=== PATIENT | female | born 1950 | race Caucasian/White ===

== ENCOUNTER 2019-12-14 10:35 | Observation (INO) | payer MEDICARE ==
[2019-12-14] MEDS ORDERED: IPRATROPIUM-ALBUTEROL 3 ML NEB INHALATION STA (10:52)
--- NOTE | 2019-12-14 11:01 | ED ---
SOB HPI - General Chief Complaint: Shortness of Breath Stated Complaint: SOB Time Seen by Provider: 12/14/19 10:43 Source: patient, RN notes reviewed Mode of arrival: ambulatory Limitations: no limitations - History of Present Illness Initial Comments: This a 69-year-old female presents emergency Department with chief complaint shortness breath. She's had increased shortness with the last couple days. She states she had chills last night and a fever or she took ibuprofen for this morning. Patient states that she's been dealing with sinus issues over the last couple weeks and which she was on antibiotics for. Patient does admit that she has bad seasonal ALLERGIES. Patient does have a history of PE, and asthma. She has inhalers at home. She does complain of mild chest discomfort. Denies any abdominal pain she's had slight nausea no vomiting. She has a minimally productive cough with nasal congestion. - Related Data Home Medications Medication Instructions Recorded Confirmed Lisinopril 40 mg PO DAILY 03/29/14 04/03/16 Omeprazole [PriLOSEC] 20 mg PO AC-[id number] 03/29/14 04/03/16 Warfarin [Coumadin] 6 mg PO DAILY 03/29/14 04/03/16 amLODIPine BESYLATE [Norvasc] 10 mg PO DAILY 03/29/14 04/03/16 Atorvastatin Calcium [Lipitor] 10 mg PO DAILY 04/03/16 04/03/16 Carvedilol [Coreg] 12.5 mg PO BID 04/03/16 04/03/16 Fluticasone/Salmeterol [Advair 1 inhalation PO BID 04/03/16 04/03/16 500-50 Diskus] Montelukast [Singulair] 10 mg PO DAILY 04/03/16 04/03/16 buPROPion HCL [Wellbutrin XL] 300 mg PO DAILY 04/03/16 04/03/16 Previous Rx's Medication Instructions Recorded Ibuprofen [Motrin] 800 mg PO Q6HR PRN #20 tab 04/03/16 Orphenadrine [Norflex] 100 mg PO Q12H PRN #12 tablet.er 04/03/16 Allergies Allergy/AdvReac Type Severity Reaction Status Date / Time No Known Allergies Allergy Verified 12/14/19 10:41 Review of Systems ROS Statement: Those systems with pertinent positive or pertinent negative responses have been documented in the HPI. ROS Other: All systems not noted in ROS Statement are negative. Past Medical History Past Medical History: Asthma, Deep Vein Thrombosis (DVT), Hypertension, P ulmonary Embolus (PE) Additional Past Medical History / Comment(s): chronic sinus issues and allergies History of Any Multi-Drug Resistant Organisms: None Reported Past Surgical History: Orthopedic Surgery Past Psychological History: No Psychological Hx Reported Smoking Status: Never smoker Past Alcohol Use History: None Reported Past Drug Use History: None Reported General Exam Limitations: no limitations General appearance: alert, in no apparent distress Head exam: Present: atraumatic, normocephalic, normal inspection Eye exam: Present: normal appearance, PERRL, EOMI. Absent: scleral icterus, conjunctival injection, periorbital swelling ENT exam: Present: mucous membranes moist, TM's normal bilaterally. Absent: normal exam (Rhinorrhea), normal oropharynx Neck exam: Present: normal inspection, full ROM. Absent: tenderness, meningismus, lymphadenopathy Respiratory exam: Present: wheezes (Minimal), rhonchi. Absent: normal lung sounds bilaterally, respiratory distress, rales, stridor Cardiovascular Exam: Present: regular rate, normal rhythm, normal heart sounds. Absent: systolic murmur, diastolic murmur, rubs, gallop, clicks GI/Abdominal exam: Present: soft, normal bowel sounds. Absent: distended, tenderness, guarding, rebound, rigid Neurological exam: Present: alert, oriented X3 Skin exam: Present: warm, dry, intact, normal color. Absent: rash Course Vital Signs 12/14/19 12/14/19 12/14/19 10:37 11:22 11:39 Temperature 99.7 F H Pulse Rate 92 80 81 Respiratory 20 Rate Blood Pressure 131/84 O2 Sat by Pulse 98 Oximetry 12/14/19 12/14/19 12:30 12:59 Temperature Pulse Rate 82 67 Respiratory 24 18 Rate Blood Pressure 122/74 O2 Sat by Pulse 97 96 Oximetry Medical Decision Making - Medical Decision Making 69-year-old female presented emergency from chief complaint of shortness of breath. Patient found to have a infrahilar pneumonia. Patient did have some improvement after DuoNeb treatment. Patient does have some mild warfarin induced coagulopathy with INR 5.8. Patient has no signs of bleeding at this time. Coumadin will be held. Patient was given Rocephin, azithromycin. Patient will be admitted for further treatment and management. - Lab Data Result diagrams: 12/14/19 12:59 12/14/19 11:29 Lab Results 12/14/19 12/14/19 12/14/19 Range/Units 11:29 11:29 11:29 WBC (3.8-10.6) k/uL RBC (3.80-5.40) m/uL Hgb (11.4-16.0) gm/dL Hct (34.0-46.0) % MCV (80.0-100.0) fL MCH (25.0-35.0) pg MCHC (31.0-37.0) g/dL RDW (11.5-15.5) % Plt Count (150-450) k/uL Neutrophils % % Lymphocytes % % Monocytes % % Eosinophils % % Basophils % % Neutrophils # (1.3-7.7) k/uL Lymphocytes # (1.0-4.8) k/uL Monocytes # (0-1.0) k/uL Eosinophils # (0-0.7) k/uL Basophils # (0-0.2) k/uL PT 58.3 H (9.0-12.0) sec INR 5.8 H* (<1.2) APTT 43.1 H (22.0-30.0) sec D-Dimer 0.23 (<0.60) mg/L FEU Sodium 135 L (137-145) mmol/L Potassium 4.4 (3.5-5.1) mmol/L Chloride 106 (98-107) mmol/L Carbon Dioxide 22 (22-30) mmol/L Anion Gap 7 mmol/L BUN 17 (7-17) mg/dL Creatinine 1.02 (0.52-1.04) mg/dL Est GFR (CKD-EPI)AfAm 65 (>60 ml/min/1.73 sqM) Est GFR (CKD-EPI)NonAf 56 (>60 ml/min/1.73 sqM) Glucose 172 H (74-99) mg/dL Plasma Lactic Acid Jorge 1.5 (0.7-2.0) mmol/L Calcium 8.9 (8.4-10.2) mg/dL Magnesium 1.7 (1.6-2.3) mg/dL Total Bilirubin 1.8 H (0.2-1.3) mg/dL AST 40 H (14-36) U/L ALT 33 (4-34) U/L Alkaline Phosphatase 93 (38-126) U/L Troponin I (0.000-0.034) ng/mL NT-Pro-B Natriuret Pep pg/mL Total Protein 6.4 (6.3-8.2) g/dL Albumin 3.4 L (3.5-5.0) g/dL 12/14/19 12/14/19 12/14/19 Range/Units 11:29 11:29 12:59 WBC 16.7 H (3.8-10.6) k/uL RBC 4.52 (3.80-5.40) m/uL Hgb 14.0 (11.4-16.0) gm/dL Hct 42.6 (34.0-46.0) % MCV 94.2 (80.0-100.0) fL MCH 30.9 (25.0-35.0) pg MCHC 32.8 (31.0-37.0) g/dL RDW 13.9 (11.5-15.5) % Plt Count 182 (150-450) k/uL Neutrophils % 94 % Lymphocytes % 2 % Monocytes % 4 % Eosinophils % 0 % Basophils % 0 % Neutrophils # 15.6 H (1.3-7.7) k/uL Lymphocytes # 0.3 L (1.0-4.8) k/uL Monocytes # 0.6 (0-1.0) k/uL Eosinophils # 0.0 (0-0.7) k/uL Basophils # 0.0 (0-0.2) k/uL PT (9.0-12.0) sec INR (<1.2) APTT (22.0-30.0) sec D-Dimer (<0.60) mg/L FEU Sodium (137-145) mmol/L Potassium (3.5-5.1) mmol/L Chloride (98-107) mmol/L Carbon Dioxide (22-30) mmol/L Anion Gap mmol/L BUN (7-17) mg/dL Creatinine (0.52-1.04) mg/dL Est GFR (CKD-EPI)AfAm (>60 ml/min/1.73 sqM) Est GFR (CKD-EPI)NonAf (>60 ml/min/1.73 sqM) Glucose (74-99) mg/dL Plasma Lactic Acid Jorge (0.7-2.0) mmol/L Calcium (8.4-10.2) mg/dL Magnesium (1.6-2.3) mg/dL Total Bilirubin (0.2-1.3) mg/dL AST (14-36) U/L ALT (4-34) U/L Alkaline Phosphatase (38-126) U/L Troponin I <0.012 (0.000-0.034) ng/mL NT-Pro-B Natriuret Pep 322 pg/mL Total Protein (6.3-8.2) g/dL Albumin (3.5-5.0) g/dL - EKG Data -: EKG Interpreted by Me EKG Comments: EKG performed at 10:56 no sinus rhythm rate of 88 NJ 146 QRS 74 QT/QTC 352/425 left axis deviation Disposition Clinical Impression: Pneumonia, Warfarin-induced coagulopathy, Failure of outpatient treatment, Dyspnea Disposition: ADMITTED IP TO THIS [facility] Condition: Fair Referrals: Dipak Park MD [Primary Care Provider] - 1-2 days
[2019-12-14 12:09] LABS: Albumin 3.4 g/dL (3.5-5.0); Calcium 8.9 mg/dL (8.4-10.2); Magnesium 1.7 mg/dL (1.6-2.3); Potassium 4.4 mmol/L (3.5-5.1); Total Bilirubin 1.8 mg/dL (0.2-1.3); Total Protein 6.4 g/dL (6.3-8.2)
--- NOTE | 2019-12-14 12:11 | XR ---
EXAMINATION TYPE: XR chest 2V DATE OF EXAM: 12/14/2019 HISTORY: difficulty breathing. REFERENCE: NONE. FINDINGS: There is apparent elevation of the right hemidiaphragm. Heart size upper limits of normal. There are senescent changes in the lungs. There is some increased density in the infrahilar region on the right and I cannot exclude an early infiltrate. IMPRESSION: I CANNOT EXCLUDE AN EARLY INFILTRATE IN THE INFRAHILAR REGION ON THE RIGHT.
[2019-12-14 12:14] LABS: D-Dimer 0.23 mg/L FEU (<0.60); Partial Thromboplastin Time 43.1 sec (22.0-30.0)
[2019-12-14 12:15] LABS: Prothrombin Time 58.3 sec (9.0-12.0)
[2019-12-14 12:17] LABS: INR 5.8 (<1.2)
[2019-12-14] MEDS ORDERED: ACETAMINOPHEN TAB 325 MG TAB PO STA (12:21)
[2019-12-14 13:32] LABS: Basophils % (A) 0 %; Eosinophils % (A) 0 %; HCT 42.6 % (34.0-46.0); Lymphocytes # (A) 0.3 k/uL (1.0-4.8); Lymphocytes % (A) 2 %; MCH 30.9 pg (25.0-35.0); MCHC 32.8 g/dL (31.0-37.0); MCV 94.2 fL (80.0-100.0); Mean Platelet Volume 7.1; Monocytes # (A) 0.6 k/uL (0-1.0); Monocytes % (A) 4 %; Neutrophils # (A) 15.6 k/uL (1.3-7.7); Neutrophils % (A) 94 %; Platelet Count 182 k/uL (150-450); RBC 4.52 m/uL (3.80-5.40); RDW 13.9 % (11.5-15.5); WBC 16.7 k/uL (3.8-10.6)
[2019-12-14] MEDS ORDERED: PNEUMONIA PROTOCOL UTILIZED 1 EACH MISC PO PRN (13:40)
[2019-12-14] MEDS ORDERED: AZITHROMYCIN 500 MG in SODIUM CHLORIDE 0.9% 250 ML IVPB STA (13:40)
[2019-12-14] MEDS ORDERED: IPRATROPIUM-ALBUTEROL 3 ML NEB INHALATION SCH (16:00)
[2019-12-14] MEDS ORDERED: NALOXONE 0.4 MG/ML 1 ML VIAL IV PRN (16:52)
[2019-12-14] MEDS ORDERED: ONDANSETRON 4 MG/2 ML VIAL IVP PRN (16:52)
[2019-12-14] MEDS ORDERED: LACTULOSE 20 GM/30 ML CUP PO PRN (16:52)
[2019-12-14] MEDS ORDERED: MAGNESIUM HYDROXIDE 2,400 MG/10 ML CUP PO PRN (16:52)
[2019-12-14] MEDS ORDERED: CALCIUM CARBONATE 500 MG CHEWABLE PO PRN (16:52)
[2019-12-14] MEDS ORDERED: ALPRAZolam 0.25 MG TAB PO PRN (16:52)
[2019-12-14] MEDS ORDERED: MELATONIN 3 MG TABLET PO PRN (16:52)
[2019-12-14] MEDS ORDERED: MAG HYDROX/AL HYDROX/SIMETH 30 ML CUP PO PRN (16:52)
[2019-12-14] MEDS ORDERED: ACETAMINOPHEN TAB 325 MG TAB PO PRN (18:33)
--- NOTE | 2019-12-14 19:51 | P.HPIM ---
History of Present Illness H&P Date: 12/14/19 Chief Complaint: cough History of presenting complaint: This is a pleasant 69-year-old patient of Dr. Park. Chronic stable medical conditions include DVT and PE for which she's on Coumadin, hypertension, chronic sinus trouble and ALLERGIES. For the last 3 weeks been having trouble with her sinuses. Went to see her family doctor. Was given antibiotics. Presented dry cough all winter. We'll slightly short of breath. Decreased appetite had some chills yesterday. Some nausea. Tired rundown. Decided to come in. X-ray in the ER was suggestive of infiltrate. Started on ceftriaxone and Zithromax. Review of systems: GEN.: Tired chills EYES: None HEENT: None NECK: None RESPIRATORY: As above CARDIOVASCULAR: None GASTROINTESTINAL: None GENITOURINARY: None MUSCULOSKELETAL: Some joint pains LYMPHATICS: None HEMATOLOGICAL: None PSYCHIATRY: None NEUROLOGICAL: None Past medical history to include: Asthma, DVT, hypertension, PE, chronic sinus trouble and ALLERGIES Social history: Lives alone. No history of smoking or alcohol Family history: Reviewed, noncontributory to presentation Physical examination: VITAL SIGNS: 99.7, 92, 20, 131/84, 98% on room air GENERAL: BMI 42, laying in bed, slightly tired. EYES: Pupils equal. Conjunctiva normal. HEENT: External appearance of nose and ears normal, oral cavity grossly normal. NECK: JVD not raised; masses not palpable. HEART: First and second heart sounds are normal; no edema. LUNGS: Respiratory rate increased, diminished breath sounds mild wheezing. ABDOMEN: Soft, nontender, liver spleen not palpable, no masses palpable. PSYCH: Alert and oriented x3; mood and affect normal. NEUROLOGICAL: Cranial nerves grossly intact; no facial asymmetry, power and sensation grossly intact. LYMPHATICS: No lymph nodes palpable in the axilla and neck INVESTIGATIONS, reviewed in the clinical context: White count 16.7 hemoglobin 14 platelets 22 potassium 4.4 creatinine 1.0 to Bilirubin 1.8 AST 40 INR 5.8 EKG tracing personally reviewed by me-normal sinus rhythm, nonspecific changes Chest x-ray film personally reviewed by me-right perihilar infiltrate Assessment: -Right-sided pneumonia, suspect gram-negative organism -Morbid obesity BMI 42 -Acute exacerbation of intermittent asthma -Chronic sinusitis with ALLERGIES - chronic DVT and PE for which patient is on Coumadin -Coumadin toxicity with no evidence of bleeding Plan: Patient was started on nebulized bronchodilators, inhaled and IV steroids. Patient told to use warm water with salt gargles. Also use Claritin D for ALLERGIES and congestion. Home medications resumed. Does clinically no evidence of any bleeding. Hold off Coumadin for now. Care was discussed with the patient question were answered. Past Medical History Past Medical History: Asthma, Deep Vein Thrombosis (DVT), Hypertension, Pulmonary Embolus (PE) Additional Past Medical History / Comment(s): chronic sinus issues and allergies History of Any Multi-Drug Resistant Organisms: None Reported Past Surgical History: Orthopedic Surgery Additional Past Surgical History / Comment(s): meniscus repair in left knee Past Anesthesia/Blood Transfusion Reactions: No Reported Reaction Past Psychological History: No Psychological Hx Reported Smoking Status: Never smoker Past Alcohol Use History: None Reported Past Drug Use History: None Reported Medications and Allergies Home Medications Medication Instructions Recorded Confirmed Type Lisinopril 40 mg PO DAILY 03/29/14 12/14/19 History Warfarin [Coumadin] 5 mg PO DAILY 03/29/14 12/14/19 History amLODIPine BESYLATE [Norvasc] 10 mg PO DAILY 03/29/14 12/14/19 History Atorvastatin Calcium [Lipitor] 10 mg PO DAILY 04/03/16 12/14/19 History Carvedilol [Coreg] 12.5 mg PO BID 04/03/16 12/14/19 History Montelukast [Singulair] 10 mg PO DAILY 04/03/16 12/14/19 History Albuterol Inhaler [Ventolin Hfa 1 puff INHALATION RT-QID 12/14/19 12/14/19 History Inhaler] Allergies Allergy/AdvReac Type Severity Reaction Status Date / Time No Known Allergies Allergy Verified 12/14/19 14:01 Physical Exam Vitals: Vital Signs Temp Pulse Pulse Resp BP BP Pulse Ox 12/14/19 16:37 80 12/14/19 16:25 80 12/14/19 16:20 98.2 F 84 18 121/78 97 12/14/19 16:00 18 12/14/19 14:56 98.7 F 77 18 104/64 98 12/14/19 14:00 85 22 136/73 12/14/19 13:30 82 25 H 125/74 12/14/19 12:59 67 18 122/74 96 12/14/19 12:30 82 24 97 12/14/19 11:39 81 12/14/19 11:22 80 12/14/19 10:37 99.7 F H 92 20 131/84 98 Intake and Output 12/14/19 12/14/19 12/14/19 06:59 14:59 22:59 Other: Weight 117.934 kg Results CBC & Chem 7: 12/14/19 12:59 12/14/19 11:29 Labs: Abnormal Lab Results - Last 24 Hours (Table) 12/14/19 12/14/19 12/14/19 Range/Units 11:29 11:29 12:59 WBC 16.7 H (3.8-10.6) k/uL Neutrophils # 15.6 H (1.3-7.7) k/uL Lymphocytes # 0.3 L (1.0-4.8) k/uL PT 58.3 H (9.0-12.0) sec INR 5.8 H* (<1.2) APTT 43.1 H (22.0-30.0) sec Sodium 135 L (137-145) mmol/L Glucose 172 H (74-99) mg/dL Total Bilirubin 1.8 H (0.2-1.3) mg/dL AST 40 H (14-36) U/L Albumin 3.4 L (3.5-5.0) g/dL Thrombosis Risk Factor Assmnt - Choose All That Apply Any of the Below Risk Factors Present?: Yes Each Factor Represents 1 point: Obesity (BMI >25), Swollen legs (current) Each Risk Factor Represents 2 Points: Age 61-74 years Each Risk Factor Represents 3 Points: History of DVT/PE Thrombosis Risk Factor Assessment Total Risk Factor Score: 7 Thrombosis Risk Factor Assessment Level: High Risk
[2019-12-14 20:00] VITALS: RESP 18
[2019-12-14] MEDS ORDERED: ALBUTEROL NEBULIZED 2.5 MG/3 ML INHALATION SCH (20:00)
[2019-12-14] MEDS: BUDESONIDE 1 MG/2 ML NEBU INHALATION SCH (20:03)
[2019-12-14] MEDS: ALBUTEROL NEBULIZED 2.5 MG/3 ML INHALATION SCH ×2 (20:03→23:54)
[2019-12-14] MEDS: methylPREDNISolone SOD SUCCI 40 MG/ML 1 ML VIAL IV SCH (20:13)
[2019-12-14] MEDS: CARVEDILOL 12.5 MG TAB PO SCH (20:13)
[2019-12-14] MEDS: LORATADINE-PSEUDOEPH 5-120 MG 1 EACH TAB.ER.12H PO SCH (21:00)
[2019-12-15] MEDS: methylPREDNISolone SOD SUCCI 40 MG/ML 1 ML VIAL IV SCH ×2 (03:30→11:41)
[2019-12-15] MEDS: ALBUTEROL NEBULIZED 2.5 MG/3 ML INHALATION SCH ×4 (04:25→15:56)
--- NOTE | 2019-12-15 06:51 | XR ---
EXAMINATION TYPE: XR chest 1V DATE OF EXAM: 12/15/2019 HISTORY: pneumonia. REFERENCE: Previous study dated 12/14/2019. FINDINGS: There continues to be some increased opacity in the infrahilar region on the right. Left aylin ng appears clear. The heart is enlarged. IMPRESSION: 1. CARDIOMEGALY. 2. I CONTINUE TO BE SUSPICIOUS OF AN INFRAHILAR INFILTRATE ON THE RIGHT.
[2019-12-15 07:19] LABS: Glucose,Whole Blood 199 mg/dL (75-99)
[2019-12-15 08:28] LABS: INR 4.3 (<1.2); Prothrombin Time 42.9 sec (9.0-12.0)
[2019-12-15] MEDS: INSULIN ASPART (NovoLOG) 100 UNIT/ML VIAL SQ SCH ×3 (08:28→18:05)
[2019-12-15] MEDS: LORATADINE-PSEUDOEPH 5-120 MG 1 EACH TAB.ER.12H PO SCH (08:30)
[2019-12-15] MEDS: CARVEDILOL 12.5 MG TAB PO SCH (08:36)
[2019-12-15] MEDS: BUDESONIDE 1 MG/2 ML NEBU INHALATION SCH (08:42)
[2019-12-15] MEDS ORDERED: amLODIPine 10 MG TAB PO SCH (09:00)
[2019-12-15] MEDS ORDERED: WARFARIN 5 MG TAB PO SCH (09:00)
[2019-12-15] MEDS ORDERED: LISINOPRIL 20 MG TAB PO SCH (09:00)
[2019-12-15] MEDS ORDERED: MONTELUKAST 10 MG TAB PO SCH (09:00)
[2019-12-15] MEDS ORDERED: ATORVASTATIN 10 MG TAB PO SCH (09:00)
[2019-12-15] MEDS ORDERED: AZITHROMYCIN 500 MG TAB PO SCH (09:00)
[2019-12-15 11:52] LABS: Glucose,Whole Blood 227 mg/dL (75-99)
[2019-12-15 14:26] VITALS: BP 97/62; TEMP 98
[2019-12-15 16:01] VITALS: PULSE 62
[2019-12-15 17:00] LABS: Glucose,Whole Blood 212 mg/dL (75-99)
[2019-12-15] MEDS ORDERED: WARFARIN 0.5 MG TAB PO ONE (18:00)
--- NOTE | 2019-12-15 18:30 | P.DS ---
Providers Date of admission: 12/14/19 13:40 Expected date of discharge: 12/15/19 Attending physician: Hadley Snider Primary care physician: Dipak Park [facility] Course: Chief Complaint: cough History of presenting complaint: This is a pleasant 69-year-old patient of Dr. Park. Chronic stable medical conditions include DVT and PE for which she's on Coumadin, hypertension, chronic sinus trouble and ALLERGIES. For the last 3 weeks been having trouble with her sinuses. Went to see her family doctor. Was given antibiotics. Presented dry cough all winter. We'll slightly short of breath. Decreased appetite had some chills yesterday. Some nausea. Tired rundown. Decided to come in. X-ray in the ER was suggestive of infiltrate. Started on ceftriaxone and Zithromax. Admitted with pneumonia and asthma exacerbation. Treated with IV ceftriaxone, steroids. Also given Claritin-D. Today-patient doing much better. Greatly improved. Breathing much improved. Discussed with the patient. Can go home later this evening. Medications were discussed. Does of Coumadin compactor 2.5 mg she will not take today. From tomorrow. Repeat INR in 5 days. Discussion and discharge planning more than 35 minutes Physical examination: VITAL SIGNS: 98, 60, 18, 97 was 62, 92% room air GENERAL: Sitting over chair, looking much improved EYES: Pupils equal. Conjunctiva normal. HEENT: External appearance of nose and ears normal, oral cavity grossly normal. NECK: JVD not raised; masses not palpable. HEART: First and second heart sounds are normal; no edema. LUNGS: Respiratory rate increased, improved air entry ABDOMEN: Soft, nontender, liver spleen not palpable, no masses palpable. PSYCH: Alert and oriented x3; mood and affect normal. INVESTIGATIONS, reviewed in the clinical context: INR 4.3 White count 16.7 hemoglobin 14 platelets 22 potassium 4.4 creatinine 1.0 to Bilirubin 1.8 AST 40 INR 5.8 EKG tracing personally reviewed by me-normal sinus rhythm, nonspecific changes Chest x-ray film personally reviewed by me-right perihilar infiltrate COVID 19 PCR not detected Assessment: -Right-sided pneumonia, suspect gram-negative organism-much improved -Morbid obesity BMI 42 -Acute exacerbation of intermittent asthma-much improved -Chronic sinusitis with ALLERGIES - chronic DVT and PE for which patient is on Coumadin -Coumadin toxicity with no evidence of bleeding Disposition: Home Patient Condition at Discharge: Stable Plan - Discharge Summary Discharge Rx Participant: Yes New Discharge Prescriptions: New Loratadine-Pseudoeph 5-120 mg [Claritin-D 12 Hour] 1 each PO Q12HR #14 tab.er.12h predniSONE 10 mg PO DAILY #30 tab Albuterol Nebulized [Ventolin Nebulized] 2.5 mg INHALATION TID #90 ml Azithromycin [Zithromax] 500 mg PO DAILY #4 tab Continue amLODIPine BESYLATE [Norvasc] 10 mg PO DAILY Lisinopril 40 mg PO DAILY Atorvastatin Calcium [Lipitor] 10 mg PO DAILY Montelukast [Singulair] 10 mg PO DAILY Carvedilol [Coreg] 12.5 mg PO BID Albuterol Inhaler [Ventolin Hfa Inhaler] 1 puff INHALATION RT-QID Changed Warfarin [Coumadin] 2.5 mg PO DAILY #0 Discharge Medication List Lisinopril 40 mg PO DAILY 03/29/14 [History] amLODIPine BESYLATE [Norvasc] 10 mg PO DAILY 03/29/14 [History] Atorvastatin Calcium [Lipitor] 10 mg PO DAILY 04/03/16 [History] Carvedilol [Coreg] 12.5 mg PO BID 04/03/16 [History] Montelukast [Singulair] 10 mg PO DAILY 04/03/16 [History] Albuterol Inhaler [Ventolin Hfa Inhaler] 1 puff INHALATION RT-QID 12/14/19 [History] Albuterol Nebulized [Ventolin Nebulized] 2.5 mg INHALATION TID #90 ml 12/15/19 [Rx] Azithromycin [Zithromax] 500 mg PO DAILY #4 tab 12/15/19 [Rx] Loratadine-Pseudoeph 5-120 mg [Claritin-D 12 Hour] 1 each PO Q12HR #14 tab.er.12h 12/15/19 [Rx] Warfarin [Coumadin] 2.5 mg PO DAILY #0 12/15/19 [Rx] predniSONE 10 mg PO DAILY #30 tab 12/15/19 [Rx] Follow up Appointment(s)/Referral(s): Dipak Park MD [Primary Care Provider] - 1 Week Activity/Diet/Wound Care/Special Instructions: dc at 6:30 pm resume coumdain from tomorrow inr- 5 days
== END 2019-12-15 18:43 | disposition home or self-care (01) ==
LOC: EC 10:35 → 4SSUR 13:40
PROVIDERS: ADMIT Hospitalist; ATTEND Hospitalist
DX: J18.9 Pneumonia, unspecified organism (principal); T45.515A Adverse effect of anticoagulants, initial encounter; R79.1 Abnormal coagulation profile; E66.01 Morbid (severe) obesity due to excess calories; Z68.41 Body mass index [BMI] 40.0-44.9, adult; J45.21 Mild intermittent asthma with (acute) exacerbation; J45.909 Unspecified asthma, uncomplicated; I10 Essential (primary) hypertension; J32.9 Chronic sinusitis, unspecified; I82.509 Chronic embolism and thrombosis of unspecified deep veins of unspecified lower extremity; I27.82 Chronic pulmonary embolism; Z79.01 Long term (current) use of anticoagulants; Z79.51 Long term (current) use of inhaled steroids; Z79.899 Other long term (current) drug therapy
CPT/HCPCS: 96376; 96375; 96365; 96367; 99285; 36415; 94640 ×4; 94760; 93005; 85379; 83880; 80053; 83605; 83735; 84484; 85025; 85610 ×2; 85730; 87040; 71045; 71046; G0378 ×2; U0003; J2920 ×2; J2405; J0456; J0696 ×2

== ENCOUNTER 2020-12-21 09:48 | Emergency (ER) | payer MEDICARE ==
[2020-12-21 09:59] VITALS: BP 181/81; PULSE 85; RESP 18; TEMP 97.6
--- NOTE | 2020-12-21 11:09 | XR ---
EXAMINATION TYPE: XR ribs LT w pa chest xray DATE OF EXAM: 12/21/2020 COMPARISON: 12/15/2019 HISTORY: Fall with pain on left side TECHNIQUE: 5 views chest and ribs FINDINGS: Lungs are grossly clear. Cardiac silhouette is not enlarged. No definite displaced rib fractures. IMPRESSION: No definite displaced rib fractures.
[2020-12-21] MEDS ORDERED: ACET/COD 300 MG/30 MG STARTER PACK 6 TAB BTL PO STA (11:55)
--- NOTE | 2020-12-21 11:55 | ED ---
Fall HPI - General Chief Complaint: Fall Stated Complaint: Fall/Lt Rib Injury Time Seen by Provider: 12/21/20 10:01 Source: patient Mode of arrival: ambulatory - History of Present Illness Initial Comments: Patient is a 70-year-old female presenting to emergency Department with complaints of left-sided rib pain for the past 4 days. Patient states she was reaching for a broom over a deck when it gave way and her left ribs hit the deck railing. She states at first she did not have a tonic pain, felt like a bruise but over the last 2 days she states the pain has been increasing. It hurts with position changes and she had a hard time falling asleep last night. She denies any nausea or vomiting. She did not hit her head. She denies any other injuries from the slip other than the left rib pain. Her vital signs are stable upon arrival. - Related Data Home Medications Medication Instructions Recorded Confirmed amLODIPine BESYLATE [Norvasc] 10 mg PO DAILY 03/29/14 12/21/20 lisinopriL 40 mg PO DAILY 03/29/14 12/21/20 Carvedilol [Coreg] 12.5 mg PO BID 04/03/16 12/21/20 Montelukast [Singulair] 10 mg PO HS 04/03/16 12/21/20 Albuterol Inhaler [Ventolin Hfa 2 puff INHALATION RT-QID PRN 12/14/19 12/21/20 Inhaler] Atorvastatin [Lipitor] 20 mg PO DAILY 12/21/20 12/21/20 Fluticasone Nasal Verm[place] [Flonase 2 spr EA NOSTRIL DAILY PRN 12/21/20 12/21/20 Nasal Verm[place]] Omeprazole Magnesium [PriLOSEC OTC] 20 mg PO DAILY PRN 12/21/20 12/21/20 Warfarin [Coumadin] 5 mg PO HS 12/21/20 12/21/20 hydroCHLOROthiazide 25 mg PO DAILY 12/21/20 12/21/20 Allergies Allergy/AdvReac Type Severity Reaction Status Date / Time No Known Allergies Allergy Verified 12/21/20 11:29 Review of Systems ROS Statement: Those systems with pertinent positive or pertinent negative responses have been documented in the HPI. ROS Other: All systems not noted in ROS Statement are negative. Past Medical History Past Medical History: Asthma, Deep Vein Thrombosis (DVT), Hypertension, Pulmonary Embolus (PE) Additional Past Medical History / Comment(s): chronic sinus issues and allergies History of Any Multi-Drug Resistant Organisms: None Reported Past Surgical History: Orthopedic Surgery Additional Past Surgical History / Comment(s): meniscus repair in left knee Past Anesthesia/Blood Transfusion Reactions: No Reported Reaction Past Psychological History: No Psychological Hx Reported Smoking Status: Never smoker Past Alcohol Use History: None Reported Past Drug Use History: None Reported General Exam - General Exam Comments Initial Comments: GENERAL: Patient is well-developed and well-nourished. Patient is nontoxic and in no acute distress. HEAD: Atraumatic, normocephalic. EYES: Pupils equal round and reactive to light, extraocular movements intact, sclera anicteric, conjunctiva are normal. Eyelids were unremarkable. ENT: TMs normal, nares patent, oropharynx clear without exudates. Moist mucous membranes. NECK: Normal range of motion, supple without lymphadenopathy or JVD. LUNGS: Unlabored respirations. Breath sounds clear to auscultation bilaterally and equal. No wheezes rales or rhonchi. HEART: Regular rate and rhythm without murmurs, rubs or gallops. ABDOMEN: Soft, nontender, normoactive bowel sounds. No guarding, no rebound. No masses appreciated. : Deferred MUSCULOSKELETAL: Normal extremities with adequate strength and normal range of motion, no pitting or edema. No clubbing or cyanosis. Patient has tenderness with palpation of the left side of the ribs, anterior and lateral in nature. No obvious bruising or deformity. NEUROLOGICAL: Patient is alert and oriented x 3. Motor and sensory are also intact. Cranial nerves II through XII grossly intact. Symmetrical smile. Normal speech, normal gait. PSYCH: Normal mood, normal affect. SKIN: Warm, Dry, normal turgor, no rashes or lesions noted. Limitations: no limitations Course Vital Signs 12/21/20 09:56 Temperature 97.6 F Pulse Rate 85 Respiratory 18 Rate Blood Pressure 181/81 O2 Sat by Pulse 97 Oximetry Medical Decision Making - Medical Decision Making Patient is a 70-year-old female here for left-sided rib pain after she slipped and hit the side of a railing 4 days ago. X-rays today revealed no acute rib fractures or other abnormalities. I discussed these findings with the patient. This is a rib contusion, recommended Tylenol for discomfort, bracing while coughing, heat or cold to the area. Patient will follow up with her primary care physician. She is in agreement with this plan of care and is stable for discharge. Case discussed with Dr. Johnson. Disposition Clinical Impression: Fall, Contusion of rib on left side Disposition: HOME SELF-CARE Condition: Stable Instructions (If sedation given, give patient instructions): Rib Contusion (ED) Additional Instructions: Please return to the Emergency Department if symptoms worsen or any other concerns. Recommend Tylenol for discomfort, ice or heat to the area. Also recommend deep breathing exercises as discussed to help prevent pneumonia. Follow up with your primary care physician. Is patient prescribed a controlled substance at d/c from ED?: No Referrals: Dipak Park MD [Primary Care Provider] - 1-2 days Time of Disposition: 11:55
== END 2020-12-21 12:15 | disposition home or self-care (01) ==
LOC: EC 09:48
DX: S20.212A Contusion of left front wall of thorax, initial encounter (principal); I10 Essential (primary) hypertension; J45.909 Unspecified asthma, uncomplicated; Z86.711 Personal history of pulmonary embolism; Z86.718 Personal history of other venous thrombosis and embolism; Z79.01 Long term (current) use of anticoagulants; Z79.51 Long term (current) use of inhaled steroids; W22.8XXA Striking against or struck by other objects, initial encounter; Y92.008 Other place in unspecified non-institutional (private) residence as the place of occurrence of the external cause
CPT/HCPCS: 99284

== ENCOUNTER 2021-05-24 09:12 | Emergency (ER) | payer MEDICARE ==
--- NOTE | 2021-05-24 09:56 | ED ---
General Adult HPI - General Chief complaint: Back Pain/Injury Stated complaint: revisit - poss pneumonia Time Seen by Provider: 05/24/21 09:27 Source: patient Mode of arrival: ambulatory Limitations: no limitations - History of Present Illness Initial comments: Dictation was produced using Sitem[employer] dictation software. please excuse any grammatical, word or spelling errors. Chief Complaint: 70-year-old female presents emergency department for back pain History of Present Illness: Patient is a 70-year-old female presents to the emergency department for back pain. Laceration back pain like this she ended up being diagnosed with pneumonia she reports. Patient states she's had back pain for approximately 6-7 days. States it is worse when she moves. She is obese and has history of chronic back pain. Denies any cough. No shortness of breath. No chest pain. Denies any abdominal pain. No urinary symptoms. States the pain is similar lower back. Still goes across. Denies any saddle anesthesia. No radiation of symptoms. She is able to ambulate. The ROS documented in this emergency department record has been reviewed and confirmed by me. Those systems with pertinent positive or negative responses have been documented in the HPI. All other systems are other negative and/or noncontributory. PHYSICAL EXAM: General Impression: Alert and oriented x3, not in acute distress HEENT: Normocephalic atraumatic, extra-ocular movements intact, pupils equal and reactive to light bilaterally, mucous membranes moist. Cardiovascular: Heart regular rate and rhythm Chest: Able to complete full sentences, no retractions, no tachypnea Abdomen: abdomen soft, non-tender, non-distended, no organomegaly Musculoskeletal: Pulses present and equal in all extremities, no peripheral edema Motor: no focal deficits noted Neurological: CN II-XII grossly intact, no focal motor or sensory deficits noted Skin: Intact with no visualized rashes Psych: Normal affect and mood ED course: 70-year-old well-appearing female presents emergency Department with acute on chronic back pain. She's had exacerbation of her back pain over the last 6-7 days. Signs upon arrival are within acceptable limits. Patient is adamant that the last time she had back pain like this she was diagnosed with pneumonia. Laboratory evaluation obtained. CBC, metabolic panel is unremarkable. Urinalysis is negative. Lumbar spine x-ray shows no cold fractures. This showed a lot of degenerative changes. incidental findings of several large gallstones. Chest x-ray shows no acute processes. No evidence of pneumonia. Reevaluated bedside at 11:45 AM. She is in stable medical condition. She is well-appearing. Patient told that her back pain is likely secondary to degenerative disc disease and arthritis. Patient discharged. She is given starter pack for analgesics. She is given referral to a family resource management specialist. EKG interpretation: Ventricular rate 79, normal sinus rhythm, MT interval 172, QRS 70. No MT prolongation, no QTC prolongation, no ST or T-wave changes noted. EKG compared to 12/14/2019 showing no changes. Overall, this EKG is u nremarkable - Related Data Home Medications Medication Instructions Recorded Confirmed amLODIPine BESYLATE [Norvasc] 10 mg PO HS 03/29/14 05/24/21 lisinopriL 40 mg PO HS 03/29/14 05/24/21 Carvedilol [Coreg] 12.5 mg PO BID 04/03/16 05/24/21 Montelukast [Singulair] 10 mg PO HS 04/03/16 05/24/21 Albuterol Inhaler [Ventolin Hfa 2 puff INHALATION RT-QID PRN 12/14/19 05/24/21 Inhaler] Atorvastatin [Lipitor] 20 mg PO HS 12/21/20 05/24/21 Fluticasone Nasal [place] [Flonase 2 spr EA NOSTRIL DAILY PRN 12/21/20 05/24/21 Nasal [place]] Omeprazole Magnesium [PriLOSEC OTC] 20 mg PO DAILY PRN 12/21/20 05/24/21 Warfarin [Coumadin] 5 mg PO HS 12/21/20 05/24/21 Ergocalciferol [Vitamin D2 (1250 1,250 mcg PO [place]LEY 05/24/21 05/24/21 Mcg = 22457 Iu)] Fluticasone Propion/Salmeterol 1 puff INHALATION RT-BID 05/24/21 05/24/21 [[place] 250-50 Inhub] Penicillin V Potassium [Pen Vee K] 500 mg PO QID 05/24/21 05/24/21 Allergies Allergy/AdvReac Type Severity Reaction Status Date / Time latex Allergy Itching Verified 05/24/21 11:25 Review of Systems ROS Statement: Those systems with pertinent positive or pertinent negative responses have been documented in the HPI. ROS Other: All systems not noted in ROS Statement are negative. Past Medical History Past Medical History: Asthma, Deep Vein Thrombosis (DVT), Hypertension, Pulmonary Embolus (PE) Additional Past Medical History / Comment(s): chronic sinus issues and allergies History of Any Multi-Drug Resistant Organisms: None Reported Past Surgical History: Orthopedic Surgery Additional Past Surgical History / Comment(s): meniscus repair in left knee Past Anesthesia/Blood Transfusion Reactions: No Reported Reaction Past Psychological History: No Psychological Hx Reported Smoking Status: Never smoker Past Alcohol Use History: None Reported Past Drug Use History: None Reported General Exam Limitations: no limitations Course Vital Signs 05/24/21 05/24/21 09:19 10:42 Temperature 97.4 F L Pulse Rate 78 70 Respiratory 18 22 Rate Blood Pressure 158/86 166/77 O2 Sat by Pulse 97 97 Oximetry Medical Decision Making - Lab Data Result diagrams: 05/24/21 10:36 05/24/21 10:36 Lab Results 05/24/21 05/24/21 05/24/21 Range/Units 10:36 10:36 10:36 WBC 8.7 (3.8-10.6) k/uL RBC 4.53 (3.80-5.40) m/uL Hgb 13.8 (11.4-16.0) gm/dL Hct 42.5 (34.0-46.0) % MCV 93.9 (80.0-100.0) fL MCH 30.4 (25.0-35.0) pg MCHC 32.4 (31.0-37.0) g/dL RDW 13.4 (11.5-15.5) % Plt Count 240 (150-450) k/uL MPV 7.3 Neutrophils % 76 % Lymphocytes % 15 % Monocytes % 5 % Eosinophils % 2 % Basophils % 1 % Neutrophils # 6.6 (1.3-7.7) k/uL Lymphocytes # 1.3 (1.0-4.8) k/uL Monocytes # 0.5 (0-1.0) k/uL Eosinophils # 0.2 (0-0.7) k/uL Basophils # 0.1 (0-0.2) k/uL Sodium 137 (137-145) mmol/L Potassium 5.3 H (3.5-5.1) mmol/L Chloride 107 (98-107) mmol/L Carbon Dioxide 23 (22-30) mmol/L Anion Gap 7 mmol/L BUN 12 (7-17) mg/dL Creatinine 1.00 (0.52-1.04) mg/dL Est GFR (CKD-EPI)AfAm 66 (>60 ml/min/1.73 sqM) Est GFR (CKD-EPI)NonAf 57 (>60 ml/min/1.73 sqM) Glucose 123 H (74-99) mg/dL Calcium 9.3 (8.4-10.2) mg/dL Urine Color Yellow Urine Appearance Clear (Clear) Urine pH 6.0 (5.0-8.0) Ur Specific [place] 1.008 (1.001-1.035) Urine Protein Negative (Negative) Urine Glucose (UA) Negative (Negative) Urine Ketones Negative (Negative) Urine Blood Trace H (Negative) Urine Nitrite Negative (Negative) Urine Bilirubin Negative (Negative) Urine Urobilinogen <2.0 (<2.0) mg/dL Ur Leukocyte Esterase Negative (Negative) Urine RBC 1 (0-5) /hpf Urine WBC 1 (0-5) /hpf Ur Squamous Epith Cells 1 (0-4) /hpf Hyaline Casts 5 H (0-2) /lpf Urine Mucus Rare H (None) /hpf Disposition Clinical Impression: Strain of lumbar region Disposition: HOME SELF-CARE Condition: Fair Instructions (If sedation given, give patient instructions): Acute Low Back Pain (ED) Is patient prescribed a controlled substance at d/c from ED?: No Referrals: Dipak Park MD [Primary Care Provider] - 1-2 days Cammy Black DO [Doctor of Osteopathic Medicine] - 1-2 days
--- NOTE | 2021-05-24 10:19 | XR ---
EXAMINATION TYPE: XR chest 1V portable DATE OF EXAM: 05/24/2021 COMPARISON: Chest x-ray 08/23/2020 HISTORY: History of pneumonia with pain. TECHNIQUE: Single frontal view of the chest is obtained. FINDINGS: There are chronic parenchymal changes without suspicious focal air space opacity, pleural effusion, or pneumothorax seen. The cardiac silhouette size is stable and mildly enlarged. The oss eous structures are intact. IMPRESSION: Chronic parenchymal changes and mild cardiomegaly without acute pulmonary process.
--- NOTE | 2021-05-24 10:24 | XR ---
EXAMINATION TYPE: XR lumbar spine 2 or 3V DATE OF EXAM: 05/24/2021 Comparison: 03/29/2014 Clinical History: 70 year-old female history of pneumonia with back pain. Findings: Large gallstones measuring up to 4.2 cm. Osteopenia. Advanced hypertrophic facet arthropathy mid to l ower lumbar spine. Minimal anterior wedging L3 vertebral body, new from 03/29/2014 but still age indet erminate. Trace grade 1 anterolisthesis L5-S1. Remaining alignment is maintained. Impression: 1. Severe hypertrophic facet arthropathy in the lumbar spine with trace grade 1 anterolisthesis L5-S1 . 2. Mild anterior wedging L3 suggests an age indeterminate mild compression injury. It is noted to be new from 2013. Correlate for any focal pain at this level. 3. Numerous large gallstones measuring up to 4.2 cm.
[2021-05-24 10:56] LABS: Basophils # (A) 0.1 k/uL (0-0.2); Basophils % (A) 1 %; Eosinophils # (A) 0.2 k/uL (0-0.7); Eosinophils % (A) 2 %; HCT 42.5 % (34.0-46.0); HGB 13.8 gm/dL (11.4-16.0); Lymphocytes # (A) 1.3 k/uL (1.0-4.8); Lymphocytes % (A) 15 %; MCH 30.4 pg (25.0-35.0); MCHC 32.4 g/dL (31.0-37.0); MCV 93.9 fL (80.0-100.0); Mean Platelet Volume 7.3; Monocytes # (A) 0.5 k/uL (0-1.0); Monocytes % (A) 5 %; Neutrophils # (A) 6.6 k/uL (1.3-7.7); Neutrophils % (A) 76 %; Platelet Count 240 k/uL (150-450); RBC 4.53 m/uL (3.80-5.40); RDW 13.4 % (11.5-15.5); WBC 8.7 k/uL (3.8-10.6)
[2021-05-24 11:09] LABS: Appearance,Urine Clear (Clear); Bilirubin,Urine Negative (Negative); Blood,Urine Trace (Negative); Color,Urine Yellow; Glucose,Urine (UA) Negative (Negative); Hyaline Casts,Urine 5 /lpf (0-2); Ketones,Urine Negative (Negative); Leukocyte Esterase,Urine Negative (Negative); Mucus,Urine Rare /hpf; Nitrite,Urine Negative (Negative); Protein,Urine Negative (Negative); RBC,Urine 1 /hpf (0-5); Specific Gravity,Urine 1.008 (1.001-1.035); Squamous Epithelial Cell,Urine 1 /hpf (0-4); Urobilinogen,Urine <2.0 mg/dL (<2.0); WBC,Urine 1 /hpf (0-5)
[2021-05-24 11:26] LABS: Calcium 9.3 mg/dL (8.4-10.2)
[2021-05-24 11:32] LABS: Potassium 5.3 mmol/L (3.5-5.1)
[2021-05-24] MEDS ORDERED: ACET/COD 300 MG/30 MG STARTER PACK 6 TAB BTL PO STA (11:46)
[2021-05-24 12:04] VITALS: BP 122/82; PULSE 81; RESP 18; TEMP 97.8
== END 2021-05-24 12:03 | disposition home or self-care (01) ==
LOC: EC 09:12
DX: S39.012A Strain of muscle, fascia and tendon of lower back, initial encounter (principal); J45.909 Unspecified asthma, uncomplicated; I10 Essential (primary) hypertension; Z91.040 Latex allergy status; Z79.899 Other long term (current) drug therapy; Z86.711 Personal history of pulmonary embolism; Z79.01 Long term (current) use of anticoagulants; Z79.51 Long term (current) use of inhaled steroids; Z86.718 Personal history of other venous thrombosis and embolism; X58.XXXA Exposure to other specified factors, initial encounter
CPT/HCPCS: 36415; 71045; 72100; 80048; 81001; 85025; 93005; 99284

== ENCOUNTER → 2021-06-02 | Outpatient (CLI) | payer MEDICARE ==
[2021-06-02 13:32] LABS: INR 1.2 (<1.2); Prothrombin Time 12.7 sec (9.0-12.0)
== END | disposition home or self-care (01) ==
LOC: LABWHC1 12:36
PROVIDERS: ATTEND Pediatrics
DX: Z79.01 Long term (current) use of anticoagulants (principal)
CPT/HCPCS: 36415; 85610

== ENCOUNTER 2021-10-20 07:51 | Emergency (ER) | payer MEDICARE ==
[2021-10-20 07:58] VITALS: BP 144/80; PULSE 68; RESP 18; TEMP 97.1
--- NOTE | 2021-10-20 08:07 | ED ---
General Adult HPI - General Chief complaint: Shortness of Breath Stated complaint: SOB Time Seen by Provider: 10/20/21 07:55 Source: patient, RN notes reviewed, old records reviewed Mode of arrival: wheelchair Limitations: no limitations - History of Present Illness Initial comments: This is a 71-year-old female who presents emergency Department with a past medical history significant for pulmonary embolisms. Patient states she has a clotting disorder and she doesn't know what is called. Patient states she's on Coumadin and hasn't checked once a month. Patient denies any recent fever chills or cough. Patient states the shortness of breath started yesterday but got worse in the middle the night and she woke up and her. Difficult time breathing so she took a breathing treatment it only helped temporarily. Patient states any movement whatsoever causes her shortness of breath. Patient states she also has some chest discomfort when she became very short of breath. Patient states she no longer has any chest discomfort but she still feels very short of breath. Patient denies any abdominal pain patient denies nausea vomiting diarrhea. Patient denies any recent injury or trauma. - Related Data Home Medications Medication Instructions Recorded Confirmed amLODIPine BESYLATE [Norvasc] 10 mg PO HS 03/29/14 10/20/21 lisinopriL 40 mg PO HS 03/29/14 10/20/21 Carvedilol [Coreg] 12.5 mg PO BID 04/03/16 10/20/21 Montelukast [Singulair] 10 mg PO HS 04/03/16 10/20/21 Atorvastatin [Lipitor] 20 mg PO HS 12/21/20 10/20/21 Omeprazole Magnesium [PriLOSEC OTC] 20 mg PO HS 12/21/20 10/20/21 Warfarin [Coumadin] 5 mg PO HS 12/21/20 10/20/21 Ergocalciferol [Vitamin D2 (1250 1,250 mcg PO [place] 05/24/21 10/20/21 Mcg = 74905 Iu)] Ibuprofen [Motrin Ib] 800 mg PO DAILY PRN 10/20/21 10/20/21 Sertraline [Zoloft] 50 mg PO DIRECTED PRN 10/20/21 10/20/21 buPROPion HCL [Wellbutrin XL] 1 dose PO DIRECTED PRN 10/20/21 10/20/21 hydroCHLOROthiazide 25 mg PO DAILY 10/20/21 10/20/21 Allergies Allergy/AdvReac Type Severity Reaction Status Date / Time latex Allergy Rash/Hives Verified 10/20/21 09:49 Review of Systems ROS Statement: Those systems with pertinent positive or pertinent negative responses have been documented in the HPI. ROS Other: All systems not noted in ROS Statement are negative. Past Medical History Past Medical History: Asthma, Deep Vein Thrombosis (DVT), Hypertension, Pulmonary Embolus (PE) Additional Past Medical History / Comment(s): chronic sinus issues and allergies History of Any Multi-Drug Resistant Organisms: None Reported Past Surgical History: Orthopedic Surgery Additional Past Surgical History / Comment(s): meniscus repair in left knee Past Anesthesia/Blood Transfusion Reactions: No Reported Reaction Past Psychological History: No Psychological Hx Reported Smoking Status: Never smoker Past Alcohol Use History: None Reported Past Drug Use History: None Reported General Exam - General Exam Comments Initial Comments: GENERAL: Patient is well-developed and well-nourished. Patient is nontoxic and well- hydrated and is in mild distress. ENT: Neck is soft and supple. No significant lymphadenopathy is noted. Oropharynx is clear. Moist mucous membranes. Neck has full range of motion without eliciting any pain. EYES: The sclera were anicteric and conjunctiva were pink and moist. Extraocular movements were intact and pupils were equal round and reactive to light. Eyelids were unremarkable. PULMONARY: Unlabored respirations. Good breath sounds bilaterally. No audible rales rhonchi or wheezing was noted. CARDIOVASCULAR: There is a regular rate and rhythm without any murmurs gallops or rubs. ABDOMEN: Soft and nontender with normal bowel sounds. SKIN: Skin is clear with no lesions or rashes and otherwise unremarkable. NEUROLOGIC: Patient is alert and oriented x3. Cranial nerves II through XII are grossly intact. Motor and sensory are also intact. Normal speech, volume and content. Symmetrical smile. MUSCULOSKELETAL: Normal extremities with adequate strength and full range of motion. No lower extremity swelling or edema. No calf tenderness. LYMPHATICS: No significant lymphadenopathy is noted PSYCHIATRIC: Normal psychiatric evaluation. Limitations: no limitations Course Vital Signs 10/20/21 10/20/21 07:53 08:06 Temperature 97.1 F L Pulse Rate 68 Respiratory 18 18 Rate Blood Pressure 144/80 O2 Sat by Pulse 97 Oximetry Medical Decision Making - Medical Decision Making EKG shows sinus rhythm at 69 bpm SD interval is 179 QRS is 95 QT interval 398 QTC is 416. Patient's EKG shows no ST segment elevation or depression. Chest x-ray showed no acute abnormality. I ordered a breathing treatment for the patient however the respiratory therapist came down to give and the patient stated she wanted she wanted to go home and do a breathing treatment at home. Patient will follow-up with the primary medical care doctor. Patient's pulse ox was 9697% on room air in bed. I told the patient she was having some chest discomfort earlier and she should probably stay but the patient did not want to stay and stated she would take care of it with breathing treatments at home. - Lab Data Result diagrams: 10/20/21 08:15 10/20/21 08:15 Lab Results 10/20/21 10/20/21 10/20/21 Range/Units 08:15 08:15 08:15 WBC 7.8 (3.8-10.6) k/uL RBC 4.74 (3.80-5.40) m/uL Hgb 14.2 (11.4-16.0) gm/dL Hct 44.2 (34.0-46.0) % MCV 93.4 (80.0-100.0) fL MCH 29.9 (25.0-35.0) pg MCHC 32.1 (31.0-37.0) g/dL RDW 13.3 (11.5-15.5) % Plt Count 235 (150-450) k/uL MPV 7.5 Neutrophils % 71 % Lymphocytes % 18 % Monocytes % 7 % Eosinophils % 2 % Basophils % 1 % Neutrophils # 5.5 (1.3-7.7) k/uL Lymphocytes # 1.4 (1.0-4.8) k/uL Monocytes # 0.5 (0-1.0) k/uL Eosinophils # 0.2 (0-0.7) k/uL Basophils # 0.1 (0-0.2) k/uL PT 27.8 H (9.0-12.0) sec INR 2.8 H (<1.2) APTT 30.4 H (22.0-30.0) sec D-Dimer <0.17 (<0.60) mg/L FEU Sodium 138 (137-145) mmol/L Potassium 4.2 (3.5-5.1) mmol/L Chloride 106 (98-107) mmol/L Carbon Dioxide 24 (22-30) mmol/L Anion Gap 8 mmol/L BUN 21 H (7-17) mg/dL Creatinine 1.07 H (0.52-1.04) mg/dL Est GFR (CKD-EPI)AfAm 60 (>60 ml/min/1.73 sqM) Est GFR (CKD-EPI)NonAf 52 (>60 ml/min/1.73 sqM) Glucose 118 H (74-99) mg/dL Plasma Lactic Acid Jorge (0.7-2.0) mmol/L Calcium 9.2 (8.4-10.2) mg/dL Magnesium 1.8 (1.6-2.3) mg/dL Total Bilirubin 1.3 (0.2-1.3) mg/dL AST 23 (14-36) U/L ALT 19 (4-34) U/L Alkaline Phosphatase 89 (38-126) U/L Troponin I (0.000-0.034) ng/mL NT-Pro-B Natriuret Pep pg/mL Total Protein 7.4 (6.3-8.2) g/dL Albumin 3.9 (3.5-5.0) g/dL 10/20/21 10/20/21 10/20/21 Range/Units 08:15 08:15 08:15 WBC (3.8-10.6) k/uL RBC (3.80-5.40) m/uL Hgb (11.4-16.0) gm/dL Hct (34.0-46.0) % MCV (80.0-100.0) fL MCH (25.0-35.0) pg MCHC (31.0-37.0) g/dL RDW (11.5-15.5) % Plt Count (150-450) k/uL MPV Neutrophils % % Lymphocytes % % Monocytes % % Eosinophils % % Basophils % % Neutrophils # (1.3-7.7) k/uL Lymphocytes # (1.0-4.8) k/uL Monocytes # (0-1.0) k/uL Eosinophils # (0-0.7) k/uL Basophils # (0-0.2) k/uL PT (9.0-12.0) sec INR (<1.2) APTT (22.0-30.0) sec D-Dimer (<0.60) mg/L FEU Sodium (137-145) mmol/L Potassium (3.5-5.1) mmol/L Chloride (98-107) mmol/L Carbon Dioxide (22-30) mmol/L Anion Gap mmol/L BUN (7-17) mg/dL Creatinine (0.52-1.04) mg/dL Est GFR (CKD-EPI)AfAm (>60 ml/min/1.73 sqM) Est GFR (CKD-EPI)NonAf (>60 ml/min/1.73 sqM) Glucose (74-99) mg/dL Plasma Lactic Acid Jorge 1.7 (0.7-2.0) mmol/L Calcium (8.4-10.2) mg/dL Magnesium (1.6-2.3) mg/dL Total Bilirubin (0.2-1.3) mg/dL AST (14-36) U/L ALT (4-34) U/L Alkaline Phosphatase (38-126) U/L Troponin I <0.012 (0.000-0.034) ng/mL NT-Pro-B Natriuret Pep 279 pg/mL Total Protein (6.3-8.2) g/dL Albumin (3.5-5.0) g/dL Disposition Clinical Impression: Dyspnea Disposition: HOME SELF-CARE Condition: Good Is patient prescribed a controlled substance at d/c from ED?: No Referrals: Dipak Park MD [Primary Care Provider] - 1-2 days Time of Disposition: 10:25
[2021-10-20 08:32] LABS: Basophils # (A) 0.1 k/uL (0-0.2); Basophils % (A) 1 %; Eosinophils # (A) 0.2 k/uL (0-0.7); Eosinophils % (A) 2 %; HCT 44.2 % (34.0-46.0); HGB 14.2 gm/dL (11.4-16.0); Lymphocytes # (A) 1.4 k/uL (1.0-4.8); Lymphocytes % (A) 18 %; MCH 29.9 pg (25.0-35.0); MCHC 32.1 g/dL (31.0-37.0); MCV 93.4 fL (80.0-100.0); Mean Platelet Volume 7.5; Monocytes # (A) 0.5 k/uL (0-1.0); Monocytes % (A) 7 %; Neutrophils # (A) 5.5 k/uL (1.3-7.7); Neutrophils % (A) 71 %; Platelet Count 235 k/uL (150-450); RBC 4.74 m/uL (3.80-5.40); RDW 13.3 % (11.5-15.5); WBC 7.8 k/uL (3.8-10.6)
[2021-10-20 08:41] LABS: Albumin 3.9 g/dL (3.5-5.0); Calcium 9.2 mg/dL (8.4-10.2); Magnesium 1.8 mg/dL (1.6-2.3); Potassium 4.2 mmol/L (3.5-5.1); Total Bilirubin 1.3 mg/dL (0.2-1.3); Total Protein 7.4 g/dL (6.3-8.2)
--- NOTE | 2021-10-20 08:45 | XR ---
EXAMINATION TYPE: XR chest 2V DATE OF EXAM: 10/20/2021 COMPARISON: 05/24/2021 HISTORY: Shortness of breath TECHNIQUE: Frontal and lateral views of the chest are obtained. FINDINGS: Scattered senescent parenchymal changes noted. Hyperinflation compatible with COPD. No evidence for infiltrate. No evidence for atelectasis. Heart size is stable. Mediastinal structures are stable and grossly unremarkable. No evidence for hilar prominence. Degenerative changes dorsal spine. IMPRESSION: 1. No evidence for acute pulmonary disease.
[2021-10-20 08:55] LABS: INR 2.8 (<1.2)
[2021-10-20 08:56] LABS: Partial Thromboplastin Time 30.4 sec (22.0-30.0); Prothrombin Time 27.8 sec (9.0-12.0)
[2021-10-20] MEDS ORDERED: IPRATROPIUM-ALBUTEROL 3 ML NEB INHALATION STA (09:25)
== END 2021-10-20 11:03 | disposition home or self-care (01) ==
LOC: EC 07:51
DX: R06.00 Dyspnea, unspecified (principal); I10 Essential (primary) hypertension; J45.909 Unspecified asthma, uncomplicated; Z86.711 Personal history of pulmonary embolism; Z86.718 Personal history of other venous thrombosis and embolism; Z79.01 Long term (current) use of anticoagulants; Z79.899 Other long term (current) drug therapy
CPT/HCPCS: 36415; 71046; 80053; 83605; 83735; 83880; 84484; 85025; 85379; 85610; 85730; 93005; 99285

== ENCOUNTER 2023-03-09 19:43 | Emergency (ER) | payer MEDICARE ==
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
[2023-03-09] MEDS ORDERED: KETOROLAC 15 MG/ML 1 ML VIAL IM STA (21:39)
--- NOTE | 2023-03-09 21:40 | XR ---
EXAM: XR Left Knee, 3 Views CLINICAL HISTORY: ITS.REASON XR Reason: L Knee pain TECHNIQUE: Three views of the left knee. COMPARISON: No relevant prior studies available. FINDINGS: Bones/joints: Severe joint space narrowing of the medial compartment. Osseous demineralization. Osteophytic spurring of the lateral and patellofemoral compartments. No acute fracture or dislocation. Soft tissues: Unremarkable. IMPRESSION: Severe joint space narrowing of the medial compartment.
--- NOTE | 2023-03-09 22:10 | US ---
EXAM: US Duplex Left Lower Extremity Veins CLINICAL HISTORY: ITS.REASON US Reason: r/o DVT TECHNIQUE: Real-time duplex ultrasound scan of the left lower extremity veins integrating B-mode two-dimensional vascular structure, Doppler spectral analysis, color flow Doppler imaging and compression. COMPARISON: No relevant prior studies available. FINDINGS: Deep veins: Unremarkable. No DVT in the visualized common femoral, femoral, proximal deep femoral or popliteal veins. The veins demonstrate normal color flow, are normally compressible, with normal phasic flow and/or augmentation response. Superficial veins: Unremarkable. No thrombus in the visualized great saphenous vein. Soft tissues: No acute findings. No popliteal cyst. IMPRESSION: Normal left lower extremity duplex venous ultrasound.
[2023-03-09 22:23] VITALS: RESP 18
[2023-03-09 23:12] VITALS: BP 118/54; PULSE 78; TEMP 97.1
== END 2023-03-09 23:23 | disposition home or self-care (01) ==
LOC: EC 19:43
DX: M25.562 Pain in left knee (principal); J45.909 Unspecified asthma, uncomplicated; I10 Essential (primary) hypertension; E66.9 Obesity, unspecified; Z79.01 Long term (current) use of anticoagulants; Z79.899 Other long term (current) drug therapy; Z91.040 Latex allergy status; Z68.42 Body mass index [BMI] 45.0-49.9, adult; Z86.718 Personal history of other venous thrombosis and embolism
CPT/HCPCS: 73562; 93971; 99284; 96372; J1885

== ENCOUNTER 2023-05-01 11:35 | Emergency (ER) | payer MEDICARE ==
--- NOTE | 2023-05-01 11:47 | ED ---
General Adult HPI - General Source: patient, RN notes reviewed Mode of arrival: ambulatory Limitations: no limitations <Anish Gama - Last Filed: 05/01/23 11:45> <Linda Villareal - Last Filed: 05/01/23 18:38> - General Chief complaint: Upper Respiratory Infection Stated complaint: SOB Time Seen by Provider: 05/01/23 11:45 - History of Present Illness Initial comments: 72-year-old female presents emergency Department with chief complaint of cough congestion nausea vomiting. Symptoms started on Monday she states she has not kept on August states that she had a fall today she went of right-sided rib pain no head injury no loss conscious. Patient reports possible fever no definite sick contacts. (Anish Gama) Patient is a 72-year-old female with a history of asthma, hypertension, hyperlipidemia, blood clots he presents emergency room with flulike symptoms. Patient states she started to develop a cough and congestion 3 days ago. She states that she has had continued diffuse body aches over the last several days and intermittent fever. Patient denies any shortness breath or hemoptysis. She denies any pain or swelling to lower [place]. Denies sick contacts. She is a no nsmoker. Denies any recent travel. (Linda Villareal) - Related Data Home Medications Medication Instructions Recorded Confirmed amLODIPine BESYLATE [Norvasc] 10 mg PO HS 03/29/14 10/20/21 lisinopriL 40 mg PO HS 03/29/14 10/20/21 Carvedilol [Coreg] 12.5 mg PO BID 04/03/16 10/20/21 Montelukast [Singulair] 10 mg PO HS 04/03/16 10/20/21 Atorvastatin [Lipitor] 20 mg PO HS 12/21/20 10/20/21 Omeprazole Magnesium [PriLOSEC OTC] 20 mg PO HS 12/21/20 10/20/21 Warfarin [Coumadin] 5 mg PO HS 12/21/20 10/20/21 Ergocalciferol [Vitamin D2 (1250 1,250 mcg PO [place] 05/24/21 10/20/21 Mcg = 64698 Iu)] Ibuprofen [Motrin Ib] 800 mg PO DAILY PRN 10/20/21 10/20/21 Sertraline [Zoloft] 50 mg PO DIRECTED PRN 10/20/21 10/20/21 buPROPion HCL [Wellbutrin XL] 1 dose PO DIRECTED PRN 10/20/21 10/20/21 hydroCHLOROthiazide 25 mg PO DAILY 10/20/21 10/20/21 Previous Rx's Medication Instructions Recorded Molnupiravir [Molnupiravir (Eua)] 800 mg PO BID 5 Days #10 cap 05/01/23 Ondansetron Odt [Zofran Odt] 4 mg PO Q6HR PRN #16 tab 05/01/23 guaiFENesin-Coden 100-10MG/5ML 5 - 10 ml PO Q6H PRN 3 Days #120 ml 05/01/23 [Robitussin AC] Allergies Allergy/AdvReac Type Severity Reaction Status Date / Time latex Allergy Rash/Hives Verified 05/01/23 11:42 Review of Systems ROS Other: All systems not noted in ROS Statement are negative. <Anish Gama - Last Filed: 05/01/23 11:45> ROS Other: All systems not noted in ROS Statement are negative. <Linda Villareal - Last Filed: 05/01/23 18:38> ROS Statement: Those systems with pertinent positive or pertinent negative responses have been documented in the HPI. Past Medical History Past Medical History: Asthma, Deep Vein Thrombosis (DVT), Hypertension, Pulmonary Embolus (PE) Additional Past Medical History / Comment(s): chronic sinus issues and allergies History of Any Multi-Drug Resistant Organisms: None Reported Past Surgical History: Orthopedic Surgery Additional Past Surgical History / Comment(s): meniscus repair in left knee Past Anesthesia/Blood Transfusion Reactions: No Reported Reaction Past Psychological History: No Psychological Hx Reported Smoking Status: Never smoker Past Alcohol Use History: None Reported Past Drug Use History: None Reported <Anish Gama - Last Filed: 05/01/23 11:45> General Exam Limitations: no limitations <Anish Gama - Last Filed: 05/01/23 11:45> Limitations: no limitations General appearance: alert, in no apparent distress Head exam: Present: atraumatic Eye exam: Present: normal appearance ENT exam: Present: normal exam, normal oropharynx Neck exam: Present: normal inspection, full ROM, other (No nuchal rigidity) Respiratory exam: Present: normal lung sounds bilaterally, other (No wheezing or respiratory distress. No rales or rhonchi) Cardiovascular Exam: Present: regular rate, normal rhythm GI/Abdominal exam: Present: soft Extremities exam: Present: full ROM Back exam: Present: full ROM Neurological exam: Present: alert, oriented X3, CN II-XII intact, other (No meningeal signs) Psychiatric exam: Present: normal affect, normal mood Skin exam: Present: warm, dry <Linda Villareal - Last Filed: 05/01/23 18:38> - General Exam Comments Initial Comments: Visual Physical Exam Vital signs reviewed General: Well-appearing, nontoxic, no acute distress. Head: Normocephalic, atraumatic Eyes: PERRLA, EOMI ENT: Airway patent Chest: Nonlabored breathing Skin: No visual rash, normal skin tone Neuro: Alert and oriented 3 Musculoskeletal: No gross abnormalities (Anish Gama) Course <Linda Villareal - Last Filed: 05/01/23 18:38> Vital Signs 05/01/23 05/01/23 05/01/23 11:39 15:04 16:26 Temperature 97.9 F 98.3 F Pulse Rate 74 57 L Respiratory 18 20 Rate Blood Pressure 130/84 136/78 O2 Sat by Pulse 96 96 Oximetry 05/01/23 17:07 Temperature 98.3 F Pulse Rate 80 Respiratory 20 Rate Blood Pressure 136/80 O2 Sat by Pulse 97 Oximetry - Reevaluation(s) Reevaluation #1: 05/01/23 1640 Patient's well appearing in the emergency room. She has no wheezing on exam is in no respiratory distress. Vital signs are stable. I discussed lab and imaging results with patient. Chest x-ray is negative for pneumonia and pneumothorax or other acute changes. Patient's labs are positive for COVID-19. Patient's other labs are unremarkable. Discussed management of the Covid including symptomatic management with the patient. I will write for the antiviral however the patient continues with her she starts that or not. I discussed other symptomatic management including Motrin Tylenol for pain and fever as well as the cough medication and nausea medicine as needed. I discussed signs return to the emergency room. Discussed following up with the PCP. She understands agrees to treatment discharge plan. (iLnda Villareal) Medical Decision Making <Anish Gama - Last Filed: 05/01/23 11:45> - Lab Data Result diagrams: 05/01/23 11:43 05/01/23 16:02 - Radiology Data Radiology results: report reviewed, image reviewed <Linda Villareal - Last Filed: 05/01/23 18:38> - Medical Decision Making I performed a quick note portion of this chart signed Anish Gama PA-C (Anish Gama) Was pt. sent in by a medical professional or institution (KEERTHI Oleary, HABITAT BIOLOGIST, urgent c are, hospital, or intermediate...) When possible be specific @ -[No] Did you speak to anyone other than the patient for history (EMS, parent, family, police, friend...)? What history was obtained from this source @ -[No] Did you review nursing and triage notes (agree or disagree)? Why? @ -[I reviewed and agree with nursing and triage notes] Were old charts reviewed (outside hosp., previous admission, EMS record, old EKG, old radiological studies, urgent care reports/EKG's, intermediate records)? Report findings @ -[No old charts were reviewed] Differential Diagnosis (chest pain, altered mental status, abdominal pain women, abdominal pain men, vaginal bleeding, weakness, fever, dyspnea, syncope, headache, dizziness, GI bleed, back pain, seizure, CVA, palpatations, mental health, musculoskeletal)? @ -URI, influenza, COVID-19, RSV, viral syndrome EKG interpreted by me (3pts min.). @ -[As above] X-rays interpreted by me (1pt min.). @ -X-rays negative for any obvious pneumothorax, mass pneumonia or other acute changes. CT interpreted by me (1pt min.). @ -[None done] U/S interpreted by me (1pt. min.). @ -[None done] What testing was considered but not performed or refused? (CT, X-rays, U/S, labs)? Why? @ -[None] What meds were considered but not given or refused? Why? @ -[None] Did you discuss the management of the patient with other professionals (professionals i.e. KEERTHI Oleary, HABITAT BIOLOGIST, lab, RT, psych nurse, social media community manager, associate artistic director, teacher, agricultural technical officer, bilingual patient support caseworker)? Give summary @ -Discussed patient's symptoms are And COVID-19 treatment and discharge him with Dr. Johnson, attending ED physician. Was smoking cessation discussed for >3mins.? @ -[No] Was critical care preformed (if so, how long)? @ -[No] Were there social determinants of health that impacted care today? How? (Homelessness, low income, unemployed, alcoholism, drug addiction, tr ansportation, low edu. Level, literacy, decrease access to med. care, fpc, rehab)? @ -[No] Was there de-escalation of care discussed even if they declined (Discuss DNR or withdrawal of care, Hospice)? DNR status @ -[No] What co-morbidities impacted this encounter? (DM, HTN, Smoking, COPD, CAD, Cancer, CVA, ARF, Chemo, Hep., AIDS, mental health diagnosis, sleep apnea, morbid obesity)? @ -[None] Was patient admitted / discharged? Hospital course, mention meds given and route, prescriptions, significant lab abnormalities, going to OR and other pertinent info. @ -The patient is well appearing in the emergency room. Her vital signs are stable. Patient is okay following up as an outpatient may continue treatment of her symptoms for COVID-19 with the antiviral, cough and pain medication and nausea medicine as an outpatient. She does understand signs return to the emergency room including but not limited to any uncontrolled fevers, uncontrolled vomiting, worsening shortness of breath, syncope near syncope or new concerning symptoms. Undiagnosed new problem with uncertain prognosis? @ -[No] Drug Therapy requiring intensive monitoring for toxicity (Heparin, Nitro, Insulin, Cardizem)? @ -[No] Were any procedures done? @ -[No] Diagnosis/symptom? @ -COVID-19 Acute, or Chronic, or Acute on Chronic? @ -Acute Uncomplicated (without systemic symptoms) or Complicated (systemic symptoms)? @ -Uncomplicated Side effects of treatment? @ -[No] Exacerbation, Progression, or Severe Exacerbation? @ -[No] Poses a threat to life or bodily function? How? (Chest pain, USA, [place], pneumonia, PE, COPD, DKA, ARF, appy, cholecystitis, CVA, Diverticulitis, Homicidal, Suicidal, threat to staff... and all critical care pts) @ -[No] (Segun Villarealn) - Lab Data Lab Results 05/01/23 05/01/23 05/01/23 Range/Units 11:43 11:43 16:02 WBC 3.4 L (3.8-10.6) k/uL RBC 4.40 (3.80-5.40) m/uL Hgb 13.9 (11.4-16.0) gm/dL Hct 41.3 (34.0-46.0) % MCV 93.9 (80.0-100.0) fL MCH 31.6 (25.0-35.0) pg MCHC 33.7 (31.0-37.0) g/dL RDW 13.5 (11.5-15.5) % Plt Count 160 (150-450) k/uL MPV 8.0 Neutrophils % 63 % Lymphocytes % 24 % Monocytes % 10 % Eosinophils % 1 % Basophils % 0 % Neutrophils # 2.1 (1.3-7.7) k/uL Lymphocytes # 0.8 L (1.0-4.8) k/uL Monocytes # 0.3 (0-1.0) k/uL Eosinophils # 0.0 (0-0.7) k/uL Basophils # 0.0 (0-0.2) k/uL Sodium 135 L (137-145) mmol/L Potassium 4.6 (3.5-5.1) mmol/L Chloride 106 (98-107) mmol/L Carbon Dioxide 20 L (22-30) mmol/L Anion Gap 9 mmol/L BUN 15 (7-17) mg/dL Creatinine 0.86 (0.52-1.04) mg/dL Est GFR (CKD-EPI)AfAm 78 (>60 ml/min/1.73 sqM) Est GFR (CKD-EPI)NonAf 68 (>60 ml/min/1.73 sqM) Glucose 95 (74-99) mg/dL Calcium 8.4 (8.4-10.2) mg/dL Total Bilirubin 0.9 (0.2-1.3) mg/dL AST 41 H (14-36) U/L ALT 29 (4-34) U/L Alkaline Phosphatase 86 (38-126) U/L Total Protein 6.5 (6.3-8.2) g/dL Albumin 3.4 L (3.5-5.0) g/dL Influenza Type A (PCR) Not Detected (Not Detectd) Influenza Type B (PCR) Not Detected (Not Detectd) RSV (PCR) Not Detected (Not Detectd) SARS-CoV-2 (PCR) Detected A (Not Detectd) Disposition <Anish Gama - Last Filed: 05/01/23 11:45> Is patient prescribed a controlled substance at d/c from ED?: Yes When asked, does pt state using other controlled substances?: No If prescribed controlled substance>3 days was MAPS reviewed?: Prescribed <3 Days If opioid is for acute pain is fill amount 7 days or less?: No Time of Disposition: 16:50 <Linda Villareal - Last Filed: 05/01/23 18:38> Clinical Impression: COVID-19 Disposition: HOME SELF-CARE Condition: Good Instructions (If sedation given, give patient instructions): Molnupiravir (By mouth), Upper Respiratory Infection (ED), Droplet Precautions (ED), COVID-19 (Coronavirus Disease 2019) (ED), COVID-19 and Chronic Health Conditions (ED) Prescriptions: Molnupiravir [Molnupiravir (Eua)] 800 mg PO BID 5 Days #10 cap guaiFENesin-Coden 100-10MG/5ML [Robitussin AC] 5 - 10 ml PO Q6H PRN 3 Days #120 ml PRN Reason: Cough Ondansetron Odt [Zofran Odt] 4 mg PO Q6HR PRN #16 tab PRN Reason: Nausea Referrals: Dipak Park MD [Primary Care Provider] - 1-2 days
[2023-05-01 12:00] LABS: Basophils % (A) 0 %; Eosinophils % (A) 1 %; HCT 41.3 % (34.0-46.0); HGB 13.9 gm/dL (11.4-16.0); Lymphocytes # (A) 0.8 k/uL (1.0-4.8); Lymphocytes % (A) 24 %; MCH 31.6 pg (25.0-35.0); MCHC 33.7 g/dL (31.0-37.0); MCV 93.9 fL (80.0-100.0); Monocytes # (A) 0.3 k/uL (0-1.0); Monocytes % (A) 10 %; Neutrophils # (A) 2.1 k/uL (1.3-7.7); Neutrophils % (A) 63 %; Platelet Count 160 k/uL (150-450); RDW 13.5 % (11.5-15.5); WBC 3.4 k/uL (3.8-10.6)
--- NOTE | 2023-05-01 12:22 | XR ---
EXAMINATION TYPE: XR ribs RT w pa chest xray DATE OF EXAM: 05/01/2023 12:08 PM CLINICAL INDICATION:Female, 72 years old with history of sob, fall; COMPARISON: 10/20/2021 TECHNIQUE: XR ribs RT w pa chest xray; Frontal and oblique views of the ribs with frontal chest radio graph. FINDINGS: The ribs have a normal appearance. No evidence of fracture. Overall, the lungs are clear. The cardiac silhouette is normal in size. The remaining osseous structures are intact. Multiple calcified gallstones in the right upper quadrant. IMPRESSION: 1. Limited evaluation secondary to overlapping soft tissue/ structures. 2. Cholelithiasis.
[2023-05-01 15:12] VITALS: RESP 20
[2023-05-01 16:30] LABS: ALT 29 U/L (4-34); African American GFR (CKD) 78 (>60 ml/min/1.73 sqM); Albumin 3.4 g/dL (3.5-5.0); Anion Gap 9 mmol/L; Blood Urea Nitrogen 15 mg/dL (7-17); Calcium 8.4 mg/dL (8.4-10.2); Carbon Dioxide 20 mmol/L (22-30); Chloride 106 mmol/L (98-107); Glucose 95 mg/dL (74-99); Non-African American GFR(CKD) 68 (>60 ml/min/1.73 sqM); Sodium 135 mmol/L (137-145); Total Bilirubin 0.9 mg/dL (0.2-1.3); Total Protein 6.5 g/dL (6.3-8.2)
[2023-05-01 16:34] LABS: AST 41 U/L (14-36); Alkaline Phosphatase 86 U/L (38-126); Potassium 4.6 mmol/L (3.5-5.1)
[2023-05-01 16:40] VITALS: TEMP 98.3
[2023-05-01 17:22] VITALS: BP 136/80; PULSE 80
== END 2023-05-01 17:09 | disposition home or self-care (01) ==
LOC: EC 11:35
DX: U07.1 COVID-19 (principal); J45.909 Unspecified asthma, uncomplicated; I10 Essential (primary) hypertension; Z86.718 Personal history of other venous thrombosis and embolism; Z91.040 Latex allergy status; Z79.01 Long term (current) use of anticoagulants; Z79.899 Other long term (current) drug therapy
CPT/HCPCS: 36415; 80053; 85025; 87636; 99285

== ENCOUNTER 2024-01-31 18:26 | Observation (INO) | payer MEDICARE ==
[2024-01-31] MEDS: HYDROmorphone 1 MG/ML 1 ML SYRINGE IVP STA ×2 (18:47→22:17)
--- NOTE | 2024-01-31 19:31 | CT ---
EXAMINATION TYPE: CT brain cspine wo con CT DLP: 1783.8 mGycm, Automated exposure control for dose reduction was used. DATE OF EXAM: 01/31/2024 7:05 PM COMPARISON: None. CLINICAL INDICATION:Female, 73 years old with history of fall, head injury, on coumadin; fall, head i njury on coumadin TECHNIQUE: Brain: Multiple axial CT images of the brain were obtained without IV contrast. Cspine: Axial CT images from the skull base to the inferior aspect of T2 we obtained without intraven ous contrast. Coronal and sagittal reformatted images were also reviewed. . FINDINGS: Brain: Extra-axial spaces: No abnormal extra-axial fluid collections. Ventricular system: Dilatation in proportion to cerebral atrophy. Cerebral parenchyma: Cerebral atrophy. No acute intraparenchymal hemorrhage or mass effect. The weber -white junction is well differentiated. Cerebellum: Unremarkable. Mass effect: No evidence of midline shift. Intracranial vasculature: Atherosclerotic calcifications of the intracranial vessels. Soft tissues: Normal. Calvarium/osseous structures: No depressed skull fracture. Paranasal sinuses and mastoid air cells: Mild mucosal thickening of the sphenoid sinuses.. Visualized orbits: Orbital contents are intact. Cervical spine: Fracture: No acute fractures. Osseous structures: Osteopenia. Multilevel disc degenerative disease. Vertebral alignment: Within normal limits. Spinal canal/Neural Foramina: Few disc osteophyte complexes are seen with no significant spinal canal stenosis. No evidence for significant neural foraminal stenosis. Neck soft tissues: Prevertebral soft tissues are within normal limits. Other: The airway is patent. Biapical atelectasis. IMPRESSION: 1. No acute intracranial process. 2. No evidence of acute cervical spine fracture. 3. Mild multilevel degenerative disc disease.
[2024-01-31 19:35] LABS: Basophils % (A) 0 %; Eosinophils # (A) 0.1 k/uL (0-0.7); Eosinophils % (A) 1 %; HCT 42.1 % (34.0-46.0); HGB 13.6 gm/dL (11.4-16.0); INR 4.4 (<1.2); Lymphocytes % (A) 12 %; MCH 30.2 pg (25.0-35.0); MCHC 32.3 g/dL (31.0-37.0); MCV 93.7 fL (80.0-100.0); Monocytes # (A) 0.5 k/uL (0-1.0); Monocytes % (A) 7 %; Neutrophils # (A) 6.6 k/uL (1.3-7.7); Neutrophils % (A) 79 %; Platelet Count 220 k/uL (150-450); Prothrombin Time 42.8 sec (10.0-12.5); RBC 4.49 m/uL (3.80-5.40); RDW 13.9 % (11.5-15.5); WBC 8.3 k/uL (3.8-10.6)
[2024-01-31 19:54] LABS: ALT 20 U/L (4-34); AST 28 U/L (14-36); African American GFR (CKD) 86 (>60 ml/min/1.73 sqM); Albumin 3.7 g/dL (3.5-5.0); Alkaline Phosphatase 69 U/L (38-126); Anion Gap 9 mmol/L; Blood Urea Nitrogen 22 mg/dL (7-17); Calcium 9.4 mg/dL (8.4-10.2); Carbon Dioxide 20 mmol/L (22-30); Chloride 108 mmol/L (98-107); Glucose 125 mg/dL (74-99); Non-African American GFR(CKD) 75 (>60 ml/min/1.73 sqM); Potassium 3.9 mmol/L (3.5-5.1); Sodium 137 mmol/L (137-145); Total Bilirubin 0.8 mg/dL (0.2-1.3); Total Protein 6.5 g/dL (6.3-8.2)
--- NOTE | 2024-01-31 20:57 | XR ---
EXAMINATION TYPE: XR hand complete RT DATE OF EXAM: 01/31/2024 7:39 PM CLINICAL INDICATION:Female, 73 years old with history of fall on coumadin; [facility] COMPARISON: None TECHNIQUE: XR hand complete RT Frontal, lateral and oblique views were obtained. FINDINGS: No acute osseous abnormalities. No dislocation. Osteopenia. Incidental note of vascular sclerosis. Po stsurgical screw is noted at the base of the first metacarpal. Mild degenerative changes of the hand and wrist appreciated. IMPRESSION: No acute osseous pathology. Mild degenerative changes.
--- NOTE | 2024-01-31 20:59 | XR ---
EXAMINATION TYPE: XR shoulder complete LT DATE OF EXAM: 01/31/2024 7:39 PM CLINICAL INDICATION:Female, 73 years old with history of fall on coumadin; [facility] COMPARISON: Chest radiograph 10/20/2021 TECHNIQUE: XR shoulder complete LT; examined in AP, internally rotated and scapular Y projections. FINDINGS: There is a comminuted displaced fracture involving the left humeral head with shortening of the fract ure component present. The humeral head appears to be articulating with the glenoid with no obvious d islocation present. No other fractures are seen. IMPRESSION: Comminuted displaced fracture of the left humeral head with shortening present. No obvious dislocatio n.
--- NOTE | 2024-01-31 21:02 | XR ---
EXAMINATION TYPE: XR knee 4V LT DATE OF EXAM: 01/31/2024 7:39 PM CLINICAL INDICATION:Female, 73 years old with history of fall on coumadin; [facility] COMPARISON: None. TECHNIQUE: XR knee 4V LT; examined in Frontal, lateral and oblique projections. FINDINGS: There is poor penetration exam imaging evaluation. There is diffuse osteopenia. Advanced tr icompartmental osteoarthritic degenerative changes. No significant soft tissue abnormality or swellin g. No radiopaque foreign bodies. IMPRESSION: 1. No acute osseous pathology. 2. Moderate tricompartmental osteoarthritis most pronounced at the medial compartment of the knee.
--- NOTE | 2024-01-31 21:41 | ED ---
Fall HPI - General Chief Complaint: Fall Stated Complaint: L shoulder dislocation Time Seen by Provider: 01/31/24 18:35 Source: patient Mode of arrival: EMS - History of Present Illness Initial Comments: 73-year-old female with past medical history of diabetes, high blood pressure, clotting disorder with PE on coumadin who presents emergency department reporting a mechanical fall. States that her daughter and grandchildren are in town visiting from [place]. They had trimmed her bushes outside and wanted to show her. She states that on her way back into the house she tripped over a bunch of shoes and fell onto her left shoulder. She scraped the bridge of her nose on the ground which was carpeted. She denies loss of consciousness. She does take Coumadin for the PE history. She denies any headache or neck pain. No back pain. Admits to left shoulder pain. Patient is right-hand dominant. She also admits to some right hand pain and left knee pain. Patient laid on the ground until EMS arrived. They did provide her with 100 mcg of fentanyl without any improvement in her pain. Patient denies syncope - Related Data Home Medications Medication Instructions Recorded Confirmed amLODIPine BESYLATE [Norvasc] 10 mg PO DAILY 03/29/14 02/01/24 lisinopriL 40 mg PO DAILY 03/29/14 02/01/24 Carvedilol [Coreg] 12.5 mg PO DAILY 04/03/16 02/01/24 Montelukast [Singulair] 10 mg PO DAILY 04/03/16 02/01/24 Atorvastatin [Lipitor] 20 mg PO DAILY 12/21/20 02/01/24 Omeprazole Magnesium [PriLOSEC OTC] 20 mg PO DAILY 12/21/20 02/01/24 Warfarin [Coumadin] 5 mg PO HS 12/21/20 02/01/24 Ibuprofen [Motrin Ib] 800 mg PO DAILY PRN 10/20/21 02/01/24 Sertraline [Zoloft] 50 mg PO DAILY 10/20/21 02/01/24 hydroCHLOROthiazide 25 mg PO DAILY 10/20/21 02/01/24 Fluticasone Nasal [place] [Flonase 1 spr EA NOSTRIL BID PRN 02/01/24 02/01/24 Nasal [place]] Triamcinolone 0.5% Cream [Kenalog 1 applic TOPICAL BID 02/01/24 02/01/24 0.5% Cream] buPROPion XL [Wellbutrin XL] 150 mg PO DAILY 02/01/24 02/01/24 metFORMIN HCL ER [Glucophage XR] 500 mg PO AC-BRKFST 02/01/24 02/01/24 Previous Rx's Medication Instructions Recorded HYDROcodone/APAP 5-325MG [[place] 5] 1 each PO Q6HR PRN #32 tab 02/02/24 Sennosides-Docusate Sodium 1 tab PO BID PRN #60 tablet 02/02/24 [Senokot-S] methocarbamoL [Robaxin-750] 750 mg PO QID PRN tab 02/02/24 Allergies Allergy/AdvReac Type Severity Reaction Status Date / Time latex Allergy Rash/Hives Verified 02/01/24 11:37 Review of Systems ROS Statement: Those systems with pertinent positive or pertinent negative responses have been documented in the HPI. ROS Other: All systems not noted in ROS Statement are negative. Past Medical History Past Medical History: Asthma, Diabetes Mellitus, Deep Vein Thrombosis (DVT), Hypertension, Osteoarthritis (OA), Pulmonary Embolus (PE) Additional Past Medical History / Comment(s): chronic sinus issues and allergies, Pre-diabetes Type 2 (on pill) 2023. History of Any Multi-Drug Resistant Organisms: None Reported Past Surgical History: Orthopedic Surgery Additional Past Surgical History / Comment(s): meniscus repair in left knee Past Anesthesia/Blood Transfusion Reactions: No Reported Reaction Past Psychological History: No Psychological Hx Reported Smoking Status: Never smoker Past Alcohol Use History: None Reported Past Drug Use History: None Reported General Exam Limitations: no limitations General appearance: alert, other (In pain) Head exam: Present: normocephalic, other (Nasal abrasion) Eye exam: Present: normal appearance, PERRL, EOMI. Absent: scleral icterus, conjunctival injection, periorbital swelling ENT exam: Present: normal exam, mucous membranes moist Neck exam: Present: normal inspection. Absent: tenderness, meningismus, lymphadenopathy Respiratory exam: Present: normal lung sounds bilaterally. Absent: respiratory distress, wheezes, rales, rhonchi, stridor Cardiovascular Exam: Present: regular rate, normal rhythm, normal heart sounds. Absent: systolic murmur, diastolic murmur, rubs, gallop, clicks GI/Abdominal exam: Present: soft, normal bowel sounds. Absent: distended, tenderness, guarding, rebound, rigid Extremities exam: Present: tenderness (Swelling to the left shoulder. Overlying ecchymosis. Extremely restricted range of motion due to pain. 2+ radial and ulnar pulses. No wrist drop), normal capillary refill. Absent: pedal edema, joint swelling, calf tenderness Back exam: Present: normal inspection Neurological exam: Present: alert, oriented X3, CN II-XII intact Psychiatric exam: Present: normal affect, normal mood Skin exam: Present: warm, dry, intact, normal color. Absent: rash Course Vital Signs 01/31/24 01/31/24 01/31/24 18:30 19:48 21:30 Temperature 98.1 F Pulse Rate 85 70 76 Respiratory 18 16 18 Rate Blood Pressure 144/88 136/69 128/68 O2 Sat by Pulse 94 L 98 95 Oximetry 01/31/24 01/31/24 22:05 23:58 Temperature Pulse Rate 72 74 Respiratory 16 16 Rate Blood Pressure 126/62 131/60 O2 Sat by Pulse 97 94 L Oximetry Medical Decision Making - Medical Decision Making Was pt. sent in by a medical professional or institution (Dr. PA, MARKETING PROPOSAL SPECIALIST, urgent care, hospital, or skilled nursing...) When possible be specific @ -No Did you speak to anyone other than the patient for history (EMS, parent, family, police, friend...)? What history was obtained from this source @Spoke with daughter for history Did you review nursing and triage notes (agree or disagree)? Why? @ -I reviewed and agree with nursing and triage notes Were old charts reviewed (outside hosp., previous admission, EMS record, old EKG, old radiological studies, urgent care reports/EKG's, skilled nursing records)? Report findings @ -No old charts were reviewed Differential Diagnosis (chest pain, altered mental status, abdominal pain women, abdominal pain men, vaginal bleeding, weakness, fever, dyspnea, syncope, headache, dizziness, GI bleed, back pain, seizure, CVA, palpatations, mental health, musculoskeletal)? @ -Differential Musculoskeletal Muscular strain, contusion, ligament sprain, fracture, arthritis, septic arthritis, bursitis, cellulitis, muscle spasm, nerve compression, DVT, arterial occlusion, herpes zoster, electrolyte abnormality, tumor.... This is not meant to be in all inclusive list EKG interpreted by me (3pts min.). @ -Not done X-rays interpreted by me (1pt min.). @ -Yes and demonstrates left proximal humeral fracture. CT interpreted by me (1pt min.). @ -Yes and demonstrates no acute intracranial process U/S interpreted by me (1pt. min.). @ -None done What testing was considered but not performed or refused? (CT, X-rays, U/S, labs)? Why? @ -None What meds were considered but not given or refused? Why? @ -None Did you discuss the management of the patient with other professionals (professionals i.e. Dr., PA, MARKETING PROPOSAL SPECIALIST, lab, RT, psych nurse, social work case manager, puppy walker, teacher, commissioned fire officer, field nurse case manager)? Give summary @ -Spoke with Dr. Aguilar who states that the patient should be admitted to Ortho as this is her only injury. Spoke with Dr. Tinsley who will admit patient for pain control. Spoke with Dr. Snider for medical management consult Was smoking cessation discussed for >3mins.? @ -No Was critical care preformed (if so, how long)? @ -No Were there social determinants of health that impacted care today? How? (Homelessness, low income, unemployed, alcoholism, drug addiction, transportation, low edu. Level, literacy, decrease access to med. care, care home, rehab)? @ -No Was there de-escalation of care discussed even if they declined (Discuss DNR or withdrawal of care, Hospice)? DNR status @ -No What co-morbidities impacted this encounter? (DM, HTN, Smoking, COPD, CAD, Cancer, CVA, ARF, Chemo, Hep., AIDS, mental health diagnosis, sleep apnea, morbid obesity)? @ -None Was patient admitted / discharged? Hospital course, mention meds given and route, prescriptions, significant lab abnormalities, going to OR and other pertinent info. @ -Upon arrival patient seen and evaluated in trauma 2. Thorough history and physical exam was performed. IV access established. Patient administered pain medications. Laboratory studies are conducted. CT of the head and neck is performed. X-rays are performed. Patient does have fracture of her left proximal humerus. I do attempt to control the patient's pain however I am successful. She will require admission for pain management. Patient was agreeable to this and was admitted in stable condition to Dr. Marshall Undiagnosed new problem with uncertain prognosis? @ -No Drug Therapy requiring intensive monitoring for toxicity (Heparin, Nitro, Insulin, Cardizem)? @ -No Were any procedures done? @ -No Diagnosis/symptom? @ -Acute fall, acute left proximal humeral fracture Acute, or Chronic, or Acute on Chronic? @Acute Uncomplicated (without systemic symptoms) or Complicated (systemic symptoms)? @ -Uncomplicated as sick Side effects of treatment? @ -No Exacerbation, Progression, or Severe Exacerbation? @ -No Poses a threat to life or bodily function? How? (Chest pain, [place], SD, pneumonia, PE, COPD, DKA, ARF, appy, cholecystitis, CVA, Diverticulitis, Homicidal, Suicidal, threat to staff... and all critical care pts) @ -No - Lab Data Result diagrams: 02/01/24 05:14 02/01/24 05:14 Lab Results 01/31/24 01/31/24 01/31/24 Range/Units 18:45 18:45 18:45 WBC 8.3 (3.8-10.6) k/uL RBC 4.49 (3.80-5.40) m/uL Hgb 13.6 (11.4-16.0) gm/dL Hct 42.1 (34.0-46.0) % MCV 93.7 (80.0-100.0) fL MCH 30.2 (25.0-35.0) pg MCHC 32.3 (31.0-37.0) g/dL RDW 13.9 (11.5-15.5) % Plt Count 220 (150-450) k/uL MPV 7.0 Neutrophils % 79 % Lymphocytes % 12 % Monocytes % 7 % Eosinophils % 1 % Basophils % 0 % Neutrophils # 6.6 (1.3-7.7) k/uL Lymphocytes # 1.0 (1.0-4.8) k/uL Monocytes # 0.5 (0-1.0) k/uL Eosinophils # 0.1 (0-0.7) k/uL Basophils # 0.0 (0-0.2) k/uL PT 42.8 H (10.0-12.5) sec INR 4.4 H (<1.2) Sodium 137 (137-145) mmol/L Potassium 3.9 (3.5-5.1) mmol/L Chloride 108 H (98-107) mmol/L Carbon Dioxide 20 L (22-30) mmol/L Anion Gap 9 mmol/L BUN 22 H (7-17) mg/dL Creatinine 0.79 (0.52-1.04) mg/dL Est GFR (CKD-EPI)AfAm 86 (>60 ml/min/1.73 sqM) Est GFR (CKD-EPI)NonAf 75 (>60 ml/min/1.73 sqM) Glucose 125 H (74-99) mg/dL Calcium 9.4 (8.4-10.2) mg/dL Total Bilirubin 0.8 (0.2-1.3) mg/dL AST 28 (14-36) U/L ALT 20 (4-34) U/L Alkaline Phosphatase 69 (38-126) U/L Total Protein 6.5 (6.3-8.2) g/dL Albumin 3.7 (3.5-5.0) g/dL Disposition Clinical Impression: Warfarin-induced coagulopathy, Fall, Left shoulder pain, Blunt head trauma Disposition: ADMITTED IP TO THIS [facility] Condition: Stable Is patient prescribed a controlled substance at d/c from ED?: No Time of Disposition: 21:41 Decision to Admit Reason: Admit from EC Decision Date: 01/31/24 Decision Time: 21:41
[2024-01-31] MEDS ORDERED: NALOXONE 0.4 MG/ML 1 ML VIAL IV PRN (21:44)
[2024-01-31] MEDS: ONDANSETRON 4 MG/2 ML VIAL IVP STA (22:08)
[2024-01-31] MEDS: HYDROmorphone 1 MG/ML 1 ML SYRINGE IVP PRN (22:08)
[2024-01-31] MEDS: ACETAMINOPHEN TAB 325 MG TAB PO SCH (23:21)
[2024-02-01] MEDS: methocarbamoL 750 MG TAB PO PRN (01:26)
[2024-02-01 06:08] LABS: Basophils % (A) 0 %; Eosinophils % (A) 0 %; HGB 12.9 gm/dL (11.4-16.0); Lymphocytes # (A) 1.1 k/uL (1.0-4.8); Lymphocytes % (A) 12 %; MCH 30.9 pg (25.0-35.0); MCHC 32.4 g/dL (31.0-37.0); MCV 95.4 fL (80.0-100.0); Mean Platelet Volume 7.2; Monocytes # (A) 0.5 k/uL (0-1.0); Monocytes % (A) 5 %; Neutrophils # (A) 7.4 k/uL (1.3-7.7); Neutrophils % (A) 82 %; Platelet Count 227 k/uL (150-450); RBC 4.19 m/uL (3.80-5.40); WBC 9.1 k/uL (3.8-10.6)
[2024-02-01 06:12] LABS: INR 3.6 (<1.2); Prothrombin Time 35.1 sec (10.0-12.5)
[2024-02-01] MEDS: ONDANSETRON 4 MG/2 ML VIAL IVP PRN (06:23)
[2024-02-01] MEDS: HYDROcodone/APAP 5-325MG 1 EACH TAB PO PRN (06:23)
[2024-02-01 06:27] LABS: African American GFR (CKD) 75 (>60 ml/min/1.73 sqM); Anion Gap 6 mmol/L; Blood Urea Nitrogen 25 mg/dL (7-17); Calcium 9.3 mg/dL (8.4-10.2); Carbon Dioxide 22 mmol/L (22-30); Chloride 106 mmol/L (98-107); Glucose 117 mg/dL (74-99); Non-African American GFR(CKD) 65 (>60 ml/min/1.73 sqM); Potassium 4.6 mmol/L (3.5-5.1); Sodium 134 mmol/L (137-145)
--- NOTE | 2024-02-01 08:56 | P.HPOR ---
History of Present Illness H&P Date: 02/01/24 The patient is a 73 year old female with multiple medical problems who is admitted to tn with a proximal humerus fracture. The patient fell yesterday hitting her nose and shoulder. She was painful and unable to move her arm, so she was brought to the ED by her daughter who is visiting from [place]. This morning she is complaining of isolated pain in her shoulder. She lives alone. Her daughter says she has a "low pain tolerance." Past Medical History Past Medical History: Asthma, Diabetes Mellitus, Deep Vein Thrombosis (DVT), Hypertension, Osteoarthritis (OA), Pulmonary Embolus (PE) Additional Past Medical History / Comment(s): chronic sinus issues and allergies History of Any Multi-Drug Resistant Organisms: None Reported Past Surgical History: Orthopedic Surgery Additional Past Surgical History / Comment(s): meniscus repair in left knee Past Anesthesia/Blood Transfusion Reactions: No Reported Reaction Past Psychological History: No Psychological Hx Reported Smoking Status: Never smoker Past Alcohol Use History: None Reported Past Drug Use History: None Reported Medications and Allergies Home Medications Medication Instructions Recorded Confirmed Type amLODIPine BESYLATE [Norvasc] 10 mg PO HS 03/29/14 10/20/21 History lisinopriL 40 mg PO HS 03/29/14 10/20/21 History Carvedilol [Coreg] 12.5 mg PO BID 04/03/16 10/20/21 History Montelukast [Singulair] 10 mg PO HS 04/03/16 10/20/21 History Atorvastatin [Lipitor] 20 mg PO HS 12/21/20 10/20/21 History Omeprazole Magnesium [PriLOSEC OTC] 20 mg PO HS 12/21/20 10/20/21 History Warfarin [Coumadin] 5 mg PO HS 12/21/20 10/20/21 History Ergocalciferol [Vitamin D2 (1250 1,250 mcg PO [place] 05/24/21 10/20/21 History Mcg = 91931 Iu)] Ibuprofen [Motrin Ib] 800 mg PO DAILY PRN 10/20/21 10/20/21 History Sertraline [Zoloft] 50 mg PO DIRECTED PRN 10/20/21 10/20/21 History buPROPion HCL [Wellbutrin XL] 1 dose PO DIRECTED PRN 10/20/21 10/20/21 History hydroCHLOROthiazide 25 mg PO DAILY 10/20/21 10/20/21 History Molnupiravir [Molnupiravir (Eua)] 800 mg PO BID 5 Days #10 cap 05/01/23 Rx Ondansetron Odt [Zofran Odt] 4 mg PO Q6HR PRN #16 tab 05/01/23 Rx guaiFENesin-Coden 100-10MG/5ML 5 - 10 ml PO Q6H PRN 3 Days #120 ml 05/01/23 Rx [Robitussin AC] Allergies Allergy/AdvReac Type Severity Reaction Status Date / Time latex Allergy Rash/Hives Verified 01/31/24 18:41 Physical Examination Patient resting in her bed. She has an abrasion over the nose, her head is overwise NC/AT. Obese. Patient's right arm is in a sling. She has pain with any attempts at PROM of the right shoulder. Her elbow and wrist are nontender. She is moving her fingers and has sensation intact to light touch. Results x-rays of the left shoulder show a comminuted proximal humerus fracture. - Labs Labs: Abnormal Lab Results - Last 24 Hours (Table) 01/31/24 01/31/24 02/01/24 Range/Units 18:45 18:45 05:14 PT 42.8 H (10.0-12.5) sec INR 4.4 H (<1.2) Sodium 134 L (137-145) mmol/L Chloride 108 H (98-107) mmol/L Carbon Dioxide 20 L (22-30) mmol/L BUN 22 H 25 H (7-17) mg/dL Glucose 125 H 117 H (74-99) mg/dL 02/01/24 Range/Units 05:27 PT 35.1 H (10.0-12.5) sec INR 3.6 H (<1.2) Sodium (137-145) mmol/L Chloride (98-107) mmol/L Carbon Dioxide (22-30) mmol/L BUN (7-17) mg/dL Glucose (74-99) mg/dL H & H 01/31/24 02/01/24 Range/Units 18:45 05:14 Hgb 13.6 12.9 (11.4-16.0) gm/dL Hct 42.1 40.0 (34.0-46.0) % Coagulation 07/31/24 08/01/24 Range/Units 18:45 05:27 INR 4.4 H 3.6 H (<1.2) Result Diagrams: 02/01/24 05:14 02/01/24 05:14 Assessment and Plan Assessment: Closed, comminuted left proximal humerus fracture Extreme morbid obesity, BMI 50 History of DVT/PE on Coumadin Plan: I have no plans for surgical intervention. I recommend sling and NWB to the Left UE. PT for mobilization. IM for medical management, including management of anticoagulation. I discussed with the daughter that the patient will need follow-up with a shoulder/UE specialist following discharge. She may need d/c to rehab/SNF. Time with Patient: Greater than 30
[2024-02-01 15:00] VITALS: BMI 50.1
[2024-02-01] MEDS ORDERED: DEXTROSE 50% SYRINGE 50 ML IVP PRN ×2 (17:52)
[2024-02-01 18:11] LABS: Glucose,Whole Blood 126 mg/dL (70-110)
[2024-02-01] MEDS: INSULIN ASPART (NovoLOG) 100 UNIT/ML VIAL SQ SCH (18:13)
--- NOTE | 2024-02-01 18:17 | P.CONS ---
History of Present Illness - Reason for Consult Consult date: 02/01/24 Medical management Requesting physician: Edil Marshall - Chief Complaint Left shoulder fracture - History of Present Illness This is a pleasant 73-year-old patient, follows with Dr. Park. Chronic stable medical condition include asthma, diabetes, DVT, hypertension, osteoarthritis/PE. Patient yesterday while coming back inside the house tripped on her carpet and fell face forwards. This resulted a comminuted displaced fracture of the left humeral head. Left arm in a sling support. Also bruising on the nose. Patient never passed out. No head injury. Patient does have a cane and a walker but very rarely uses it. Patient's daughter is visiting from [place] at the bedside. Patient does live alone. Currently no surgical intervention. Review of systems: GEN.: Tired EYES: None HEENT: Bruising on the nasal bridge NECK: None RESPIRATORY: None CARDIOVASCULAR: None GASTROINTESTINAL: None GENITOURINARY: None MUSCULOSKELETAL: Joint pains including left shoulder LYMPHATICS: None HEMATOLOGICAL: None PSYCHIATRY: None NEUROLOGICAL: At baseline is a bit unsteady gait Social history: No smoking no alcohol. Lives alone. Physical examination: VITAL SIGNS: 97.9, 86, 16, 121/72, 94% room air GENERAL: BMI 50.2, reclining bed awake not in distress. EYES: Pupils equal. Conjunctiva marielle l. HEENT: External appearance of nose and ears normal, oral cavity grossly normal. Bruising on the nasal bridge NECK: JVD unable to assess; masses not palpable. HEART: Heart sounds distant; nonpitting edema. LUNGS: Respiratory rate normal; distant breath sounds. ABDOMEN: Soft, nontender, liver spleen not palpable, no masses palpable. PSYCH: Alert and oriented x3; mood and affect marielle l. MUSCULOSKELETAL:No Clubbing/cyanosis;muscles-grossly intact. OA. Left arm in a sling NEUROLOGICAL: Cranial nerves grossly intact; no facial asymmetry, power and sensation grossly intact. LYMPHATICS: No lymph nodes palpable in the axilla and neck. Lower extremity lymphedema INVESTIGATIONS, reviewed in the clinical context: January 31: White count 9.1 hemoglobin 12.9 platelets 227 sodium 134 potassium 4.6 BUN 25 creatinine 0.88 INR 3.6 January 30: INR 4.4 X-ray of the head spine, left knee, hand: No fracture. Osteoarthritis. X-ray left shoulder: Comminuted displaced fracture of the left humeral head with shortening. Assessment plan: -Left shoulder comminuted displaced fracture of the left humeral head secondary to fall. Left arm in a sling. Being followed by Dr. Marshall. Not for surgical intervention currently -Essential hypertension. Blood pressure running B on the lower side. Coreg 6.25 twice daily. Hold-lisinopril, hydrochlorothiazide, amlodipine -Hyperlipidemia Lipitor 20 mg -Primary osteoarthritis Pain medications as needed -Depression Wellbutrin XL 150 mg Zoloft 50 mg -Chronic DVT PE Change Coumadin dose to 2.5 mg Monday and 5 mg other days. Will give 2.5 mg one-time dose today. -Chronic gait dysfunction does have a walker and a cane at home but does use it seldom. At baseline with unsteady on gait. -Morbid obesity BMI 50.2 Weight loss measures -Diabetes mellitus type 2 on oral hypoglycemic Metformin. Accu-Cheks with sliding scale. -Superficial wound on the nasal bridge secondary to fall Neosporin cream -Full code Care was discussed at length with the patient daughter at the bedside. In terms of disposition choices include rehab, help at home different scenarios were discussed. configuration release manager is involved. Thank you Dr. Marshall Past Medical History Past Medical History: Asthma, Diabetes Mellitus, Deep Vein Thrombosis (DVT), Hypertension, Osteoarthritis (OA), Pulmonary Embolus (PE) Additional Past Medical History / Comment(s): chronic sinus issues and allergies History of Any Multi-Drug Resistant Organisms: None Reported Past Surgical History: Orthopedic Surgery Additional Past Surgical History / Comment(s): meniscus repair in left knee Past Anesthesia/Blood Transfusion Reactions: No Reported Reaction Past Psychological History: No Psychological Hx Reported Smoking Status: Never smoker Past Alcohol Use History: None Reported Past Drug Use History: None Reported Medications and Allergies Home Medications Medication Instructions Recorded Confirmed Type amLODIPine BESYLATE [Norvasc] 10 mg PO DAILY 03/29/14 02/01/24 History lisinopriL 40 mg PO DAILY 03/29/14 02/01/24 History Carvedilol [Coreg] 12.5 mg PO DAILY 04/03/16 02/01/24 History Montelukast [Singulair] 10 mg PO DAILY 04/03/16 02/01/24 History Atorvastatin [Lipitor] 20 mg PO DAILY 12/21/20 02/01/24 History Omeprazole Magnesium [PriLOSEC OTC] 20 mg PO DAILY 12/21/20 02/01/24 History Warfarin [Coumadin] 5 mg PO HS 12/21/20 02/01/24 History Ibuprofen [Motrin Ib] 800 mg PO DAILY PRN 10/20/21 02/01/24 History Sertraline [Zoloft] 50 mg PO DAILY 10/20/21 02/01/24 History hydroCHLOROthiazide 25 mg PO DAILY 10/20/21 02/01/24 History Fluticasone Nasal [place] [Flonase 1 spr EA NOSTRIL BID PRN 02/01/24 02/01/24 History Nasal [place]] Triamcinolone 0.5% Cream [Kenalog 1 applic TOPICAL BID 02/01/24 02/01/24 History 0.5% Cream] buPROPion XL [Wellbutrin XL] 150 mg PO DAILY 02/01/24 02/01/24 History metFORMIN HCL ER [Glucophage XR] 500 mg PO AC-BRKFST 02/01/24 02/01/24 History Allergies Allergy/AdvReac Type Severity Reaction Status Date / Time latex Allergy Rash/Hives Verified 02/01/24 11:37 Physical Exam Vitals: Vital Signs Temp Pulse Pulse Pulse Resp BP BP 02/01/24 14:00 97.9 F 86 16 121/72 02/01/24 07:24 97.6 F 78 16 92/63 02/01/24 03:57 97.4 F L 72 20 106/73 02/01/24 00:18 97.5 F L 73 16 143/84 01/31/24 23:58 74 16 131/60 01/31/24 22:05 72 16 126/62 01/31/24 21:30 76 18 128/68 01/31/24 19:48 70 16 136/69 01/31/24 18:30 98.1 F 85 18 144/88 Pulse Ox 02/01/24 14:00 94 L 02/01/24 07:24 94 L 02/01/24 03:57 92 L 02/01/24 00:18 95 01/31/24 23:58 94 L 01/31/24 22:05 97 01/31/24 21:30 95 07/31/24 19:48 98 01/31/24 18:30 94 L Intake and Output 02/01/24 02/01/24 02/01/24 06:59 14:59 22:59 Other: Voiding Method Toilet # Voids 1 Weight 141.067 kg 141.067 kg Results CBC & Chem 7: 02/01/24 05:14 02/01/24 05:14 Labs: Abnormal Lab Results - Last 24 Hours (Table) 01/31/24 01/31/24 02/01/24 Range/Units 18:45 18:45 05:14 PT 42.8 H (10.0-12.5) sec INR 4.4 H (<1.2) Sodium 134 L (137-145) mmol/L Chloride 108 H (98-107) mmol/L Carbon Dioxide 20 L (22-30) mmol/L BUN 22 H 25 H (7-17) mg/dL Glucose 125 H 117 H (74-99) mg/dL 02/01/24 Range/Units 05:27 PT 35.1 H (10.0-12.5) sec INR 3.6 H (<1.2) Sodium (137-145) mmol/L Chloride (98-107) mmol/L Carbon Dioxide (22-30) mmol/L BUN (7-17) mg/dL Glucose (74-99) mg/dL
[2024-02-01] MEDS: ATORVASTATIN 20 MG TAB PO SCH (18:36)
[2024-02-01] MEDS: MONTELUKAST 10 MG TAB PO SCH (18:36)
[2024-02-01] MEDS: ENOXAPARIN 40 MG/0.4 ML SYRINGE SQ SCH (18:36)
[2024-02-01] MEDS: SERTRALINE 50 MG TAB PO SCH (18:36)
[2024-02-01] MEDS: PANTOPRAZOLE 40 MG TABLET PO SCH (18:36)
[2024-02-01] MEDS: carvediloL 6.25 MG TAB PO SCH (20:44)
[2024-02-01] MEDS: buPROPion XL 150 MG TAB.ER.24H PO SCH (20:44)
[2024-02-01] MEDS: WARFARIN 2.5 MG TAB PO ONE (20:44)
[2024-02-01] MEDS: metFORMIN 500 MG TAB PO SCH (20:44)
--- NOTE | 2024-02-01 21:16 | XR ---
EXAMINATION TYPE: XR chest 1V portable DATE OF EXAM: 02/01/2024 6:21 PM CLINICAL INDICATION:Female, 73 years old with history of fall; [facility]. Initial encounter. COMPARISON: Chest radiographs from 05/01/2023. TECHNIQUE: XR chest 1V portable Frontal view of the chest. FINDINGS: Lungs/Pleura: There is no evidence of pleural effusion, focal consolidation, or pneumothorax. Pulmonary vascularity: Unremarkable. Heart/mediastinum: Cardiomediastinal silhouette is unremarkable. Musculoskeletal: No acute osseous pathology. Other findings: None Lines/Tubes: IMPRESSION: No acute cardiopulmonary disease/process.
[2024-02-01] MEDS: BACITRACIN OINT 1 EACH PACKET TOPICAL SCH (22:23)
[2024-02-02 05:12] LABS: INR 4.6 (<1.2); Prothrombin Time 44.8 sec (10.0-12.5)
[2024-02-02 06:34] LABS: Glucose,Whole Blood 136 mg/dL (70-110)
[2024-02-02 07:46] VITALS: BP 132/76; PULSE 67; RESP 17; TEMP 97.4
[2024-02-02] MEDS: PHYTONADIONE ORAL 5 MG/5 ML ORAL.SYRG PO STA (09:11)
--- NOTE | 2024-02-02 10:54 | P.DS ---
Providers Date of admission: 01/31/24 21:46 Attending physician: Edil Marshall Consults: 01/31/24 21:44 Consult Physician Urgent Consulting Provider: Hadley Snider Consult Reason/Comments: fall, supratheraputic inr Do you want consulting provider notified?: Already Contacted Primary care physician: Dipak [facility] Course: The patient is a 73-year-old female with past medical history of diabetes, high blood pressure, clotting disorder with PE on coumadin who presented to the emergency department on 01/31/2024 reporting a mechanical fall. x-rays of the left shoulder showed a comminuted proximal humerus fracture. She was admitted and orthopedics were consulted. Patient was examined at bedside on 02/01/2024 and nonsurgical treatment was recommended for the left proximal humerus fracture and follow-up outpatient with orthopedic upper extremity physician. Patient was placed in a sling, nonweightbearing of the left upper extremity, and treated for pain. It was determined that the patient will be transferred to senior care facility. Internal medicine was asked to manage the patient's medical conditions and anticoagulation due to patient's history of PE. Assessment: Left proximal humerus fracture Patient Condition at Discharge: Stable Plan - Discharge Summary Discharge Rx Participant: Yes New Discharge Prescriptions: New Sennosides-Docusate Sodium [Senokot-S] 1 tab PO BID PRN #60 tablet PRN Reason: Constipation HYDROcodone/APAP 5-325MG [[place] 5] 1 each PO Q6HR PRN #32 tab PRN Reason: Pain No Action amLODIPine BESYLATE [Norvasc] 10 mg PO DAILY lisinopriL 40 mg PO DAILY Montelukast [Singulair] 10 mg PO DAILY Carvedilol [Coreg] 12.5 mg PO DAILY Warfarin [Coumadin] 5 mg PO HS metFORMIN HCL ER [Glucophage XR] 500 mg PO AC-BRKFST buPROPion XL [Wellbutrin XL] 150 mg PO DAILY Atorvastatin [Lipitor] 20 mg PO DAILY Omeprazole Magnesium [PriLOSEC OTC] 20 mg PO DAILY Sertraline [Zoloft] 50 mg PO DAILY hydroCHLOROthiazide 25 mg PO DAILY Ibuprofen [Motrin Ib] 800 mg PO DAILY PRN PRN Reason: Pain Fluticasone Nasal [place] [Flonase Nasal [place]] 1 spr EA NOSTRIL BID PRN PRN Reason: Allergy Symptoms Triamcinolone 0.5% Cream [Kenalog 0.5% Cream] 1 applic TOPICAL BID Discharge Medication List amLODIPine BESYLATE [Norvasc] 10 mg PO DAILY 03/29/14 [History] lisinopriL 40 mg PO DAILY 03/29/14 [History] Carvedilol [Coreg] 12.5 mg PO DAILY 04/03/16 [History] Montelukast [Singulair] 10 mg PO DAILY 04/03/16 [History] Atorvastatin [Lipitor] 20 mg PO DAILY 12/21/20 [History] Omeprazole Magnesium [PriLOSEC OTC] 20 mg PO DAILY 12/21/20 [History] Warfarin [Coumadin] 5 mg PO HS 12/21/20 [History] Ibuprofen [Motrin Ib] 800 mg PO DAILY PRN 10/20/21 [History] Sertraline [Zoloft] 50 mg PO DAILY 10/20/21 [History] hydroCHLOROthiazide 25 mg PO DAILY 10/20/21 [History] Fluticasone Nasal [place] [Flonase Nasal [place]] 1 spr EA NOSTRIL BID PRN 02/01/24 [History] Triamcinolone 0.5% Cream [Kenalog 0.5% Cream] 1 applic TOPICAL BID 02/01/24 [History] buPROPion XL [Wellbutrin XL] 150 mg PO DAILY 02/01/24 [History] metFORMIN HCL ER [Glucophage XR] 500 mg PO AC-BRKFST 02/01/24 [History] HYDROcodone/APAP 5-325MG [[place] 5] 1 each PO Q6HR PRN #32 tab 02/02/24 [Rx] Sennosides-Docusate Sodium [Senokot-S] 1 tab PO BID PRN #60 tablet 02/02/24 [Rx] Follow up Appointment(s)/Referral(s): Gilda Vieira DO [Doctor of Osteopathic Medicine] - 2 Weeks [facility], [NON-STAFF] - As Needed Dipak Park MD [Primary Care Provider] - 1-2 days [facility] [NON-STAFF] - As Needed Activity/Diet/Wound Care/Special Instructions: Nonweightbearing left upper extremity. In sling at all times except for hygiene. Up with assistance. Avoid activities that put the left upper extremity at risk. Discharge Disposition: TRANSFER TO SNF/ECF
--- NOTE | 2024-02-02 14:15 | P.PN ---
Subjective Progress Note Date: 02/02/24 73-year-old patient, follows with Dr. Park. Chronic stable medical condition include asthma, diabetes, DVT, hypertension, osteoarthritis/PE. Patient yesterday while coming back inside the house tripped on her carpet and fell face forwards. This resulted a comminuted displaced fracture of the left humeral head. Left arm in a sling support. Also bruising on the nose. Patient never passed out. No head injury. Patient does have a cane and a walker but very rarely uses it. Patient's daughter is visiting from [place] at the bedside. Patient does live alone. Currently no surgical intervention. Objective - Vital Signs Vital signs: Vital Signs Temp 97.4 F L 02/02/24 07:45 Pulse 67 02/02/24 07:45 Resp 17 02/02/24 07:45 BP 132/76 02/02/24 07:45 Pulse Ox 96 02/02/24 07:45 FiO2 Intake & Output 02/01/24 02/02/24 02/02/24 18:59 06:59 18:59 Weight 141.067 kg Other: # Voids 3 - Exam GENERAL: BMI 50.2, reclining bed awake not in distress. EYES: Pupils equal. Conjunctiva marielle l. HEENT: External appearance of nose and ears normal, oral cavity grossly normal. Bruising on the nasal bridge NECK: JVD unable to assess; masses not palpable. HEART: Heart sounds distant; nonpitting edema. LUNGS: Respiratory rate normal; distant breath sounds. ABDOMEN: Soft, nontender, liver spleen not palpable, no masses palpable. PSYCH: Alert and oriented x3; mood and affect marielle l. MUSCULOSKELETAL:No Clubbing/cyanosis;muscles-grossly intact. OA. Left arm in a sling NEUROLOGICAL: Cranial nerves grossly intact; no facial asymmetry, power and sensation grossly intact. LYMPHATICS: No lymph nodes palpable in the axilla and neck. Lower extremity lymphedema - Labs CBC & Chem 7: 02/01/24 05:14 02/01/24 05:14 Labs: Abnormal Lab Results - Last 24 Hours (Table) 02/01/24 02/02/24 02/02/24 Range/Units 18:10 03:50 06:32 PT 44.8 H (10.0-12.5) sec INR 4.6 H (<1.2) POC Glucose (mg/dL) 126 H 136 H (70-110) mg/dL Assessment and Plan Assessment: -Left shoulder comminuted displaced fracture of the left humeral head secondary to fall. Left arm in a sling. Being followed by Dr. Marshall. Not for surgical intervention currently -Essential hypertension. Blood pressure running B on the lower side. Coreg 6.25 twice daily. Hold-lisinopril, hydrochlorothiazide, amlodipine -Hyperlipidemia Lipitor 20 mg -Primary osteoarthritis Pain medications as needed -Depression Wellbutrin XL 150 mg Zoloft 50 mg -Chronic DVT PE Change Coumadin dose to 2.5 mg Monday and 5 mg other days. Will give 2.5 mg one-time dose today. -Chronic gait dysfunction does have a walker and a cane at home but does use it seldom. At baseline with unsteady on gait. -Morbid obesity BMI 50.2 Weight loss measures -Diabetes mellitus type 2 on oral hypoglycemic Metformin. Accu-Cheks with sliding scale. -Superficial wound on the nasal bridge secondary to fall Neosporin cream
[2024-02-02] MEDS ORDERED: WARFARIN 0.5 MG TAB PO ONE (18:00)
== END 2024-02-02 16:28 ==
LOC: EC 18:26 → 4SSUR 21:46
PROVIDERS: ADMIT Orthopaedic Surgery; ATTEND Orthopaedic Surgery
DX: S42.292A Other displaced fracture of upper end of left humerus, initial encounter for closed fracture (principal); S00.33XA Contusion of nose, initial encounter; S09.90XA Unspecified injury of head, initial encounter; W01.0XXA Fall on same level from slipping, tripping and stumbling without subsequent striking against object, initial encounter; R79.1 Abnormal coagulation profile; T45.515A Adverse effect of anticoagulants, initial encounter; J45.909 Unspecified asthma, uncomplicated; E11.9 Type 2 diabetes mellitus without complications; I10 Essential (primary) hypertension; M19.91 Primary osteoarthritis, unspecified site; E78.5 Hyperlipidemia, unspecified; F32.A Depression, unspecified; R26.89 Other abnormalities of gait and mobility; E66.01 Morbid (severe) obesity due to excess calories; Z68.43 Body mass index [BMI] 50.0-59.9, adult; Z86.711 Personal history of pulmonary embolism; Z86.718 Personal history of other venous thrombosis and embolism; Z79.01 Long term (current) use of anticoagulants; Z79.84 Long term (current) use of oral hypoglycemic drugs; Z79.899 Other long term (current) drug therapy; Z91.040 Latex allergy status
CPT/HCPCS: 36415; 93005; 97161; 97166; 80053; 80048; 85025 ×2; 85610 ×3; 73030; 73130; 73564; 71045; 72125; 70450; G0378 ×3; J2405 ×2; J1650; J1170 ×2; 96365; 96366; 96375; 99285

== ENCOUNTER 2024-03-05 18:37 | Observation (INO) | payer MEDICARE ==
--- NOTE | 2024-03-05 18:58 | ED ---
General Adult HPI - General Source: patient, family, RN notes reviewed Mode of arrival: wheelchair Limitations: no limitations <Neida Sullivan - Last Filed: 03/05/24 18:56> <Charlie Johnson - Last Filed: 03/05/24 21:14> - General Stated complaint: fall/hurt thumb R hand Time Seen by Provider: 03/05/24 18:56 - History of Present Illness Initial comments: Quick note: 73-year-old female presented to the ER with a chief complaint of syncope. Family is in HPI. They state on Monday patient had a syncopal episode where she fell flat on her face. Patient does take warfarin for history of pulmonary embolisms. Family states she had another episode today. Patient does report recent dizziness and lightheadedness. No chest pain or shortness of breath. Patient does report pain to right thumb. (Neida Sullivan) Dictation was produced using [employer] dictation software. please excuse any grammatical, word or spelling errors. Chief Complaint: 73-year-old female presents emergency department with syncope and fall History of Present Illness: Patient is a 73-year-old female presents emergency department syncope and fall. Patient had suffered 3 falls in the last couple days. She hurt her left shoulder, right hand and hit her head twice. Patient does not know how she fell. Patient apparently recently diagnosed with new onset diabetes. Patient [place] any cardiac issues. She has not seen any medical laboratory manager for syncope. The ROS documented in this emergency department record has been reviewed and confirmed by me. Those systems with pertinent positive or negative responses have been documented in the HPI. All other systems are other negative and/or noncontributory. (Charlie Johnson) - Related Data Home Medications Medication Instructions Recorded Confirmed amLODIPine BESYLATE [Norvasc] 10 mg PO DAILY 03/29/14 02/01/24 lisinopriL 40 mg PO DAILY 03/29/14 02/01/24 Carvedilol [Coreg] 12.5 mg PO DAILY 04/03/16 02/01/24 Montelukast [Singulair] 10 mg PO DAILY 04/03/16 02/01/24 Atorvastatin [Lipitor] 20 mg PO DAILY 12/21/20 02/01/24 Omeprazole Magnesium [PriLOSEC OTC] 20 mg PO DAILY 12/21/20 02/01/24 Warfarin [Coumadin] 5 mg PO HS 12/21/20 02/01/24 Ibuprofen [Motrin Ib] 800 mg PO DAILY PRN 10/20/21 02/01/24 Sertraline [Zoloft] 50 mg PO DAILY 10/20/21 02/01/24 hydroCHLOROthiazide 25 mg PO DAILY 10/20/21 02/01/24 Fluticasone Nasal [place] [Flonase 1 spr EA NOSTRIL BID PRN 02/01/24 02/01/24 Nasal [place]] Triamcinolone 0.5% Cream [Kenalog 1 applic TOPICAL BID 02/01/24 02/01/24 0.5% Cream] buPROPion XL [Wellbutrin XL] 150 mg PO DAILY 02/01/24 02/01/24 metFORMIN HCL ER [Glucophage XR] 500 mg PO AC-BRKFST 02/01/24 02/01/24 Previous Rx's Medication Instructions Recorded HYDROcodone/APAP 5-325MG [[place] 5] 1 each PO Q6HR PRN #32 tab 02/02/24 Sennosides-Docusate Sodium 1 tab PO BID PRN #60 tablet 02/02/24 [Senokot-S] methocarbamoL [Robaxin-750] 750 mg PO QID PRN tab 02/02/24 Allergies Allergy/AdvReac Type Severity Reaction Status Date / Time latex Allergy Rash/Hives Verified 03/05/24 19:03 Review of Systems ROS Other: All systems not noted in ROS Statement are negative. <Neida Sullivan - Last Filed: 03/05/24 18:56> ROS Other: All systems not noted in ROS Statement are negative. <Charlie Johnson - Last Filed: 03/05/24 21:14> ROS Statement: Those systems with pertinent positive or pertinent negative responses have been documented in the HPI. Past Medical History Past Medical History: Asthma, Diabetes Mellitus, Deep Vein Thrombosis (DVT), Hypertension, Osteoarthritis (OA), Pulmonary Embolus (PE) Additional Past Medical History / Comment(s): chronic sinus issues and allergies, Pre-diabetes Type 2 (on pill) 2023. History of Any Multi-Drug Resistant Organisms: None Reported Past Surgical History: Orthopedic Surgery Additional Past Surgical History / Comment(s): meniscus repair in left knee Past Anesthesia/Blood Transfusion Reactions: No Reported Reaction Past Psychological History: No Psychological Hx Reported Smoking Status: Never smoker Past Alcohol Use History: None Reported Past Drug Use History: None Reported <Neida Sullivan - Last Filed: 03/05/24 18:56> General Exam <Neida Sullivan - Last Filed: 03/05/24 18:56> <Charlie Johnson - Last Filed: 03/05/24 21:14> - General Exam Comments Initial Comments: Visual Physical Exam Vital signs reviewed General: Well-appearing, nontoxic, no acute distress. Head: Normocephalic, atraumatic Eyes: PERRLA, EOMI, contusions under bilateral eyes. Large abrasion to nasal bridge. ENT: Airway patent Chest: Nonlabored breathing Skin: No visual rash, normal skin tone Neuro: Alert and oriented 3 Musculoskeletal: No gross abnormalities, edema and ecchymosis to right first digit. (Neida Sullivan) PHYSICAL EXAM: General Impression: Alert and oriented x3, not in acute distress HEENT: Normocephalic atraumatic, extra-ocular movements intact, pupils equal and reactive to light bilaterally, mucous membranes moist. Cardiovascular: Heart regular rate and rhythm Chest: Able to complete full sentences, no retractions, no tachypnea Abdomen: abdomen soft, non-tender, non-distended, no organomegaly Musculoskeletal: Pulses present and equal in all extremities, no peripheral edema Motor: no focal deficits noted Neurological: CN II-XII grossly intact, no focal motor or sensory deficits noted Skin: Intact with no visualized rashes Psych: Normal affect and mood (Charlie Johnson) Course Vital Signs 03/05/24 03/05/24 18:58 20:56 Temperature 98 F Pulse Rate 70 63 Respiratory 20 16 Rate Blood Pressure 119/76 125/69 O2 Sat by Pulse 97 Oximetry Procedures - Orthopedic Splinting/Casting Injury #1 Side: right Upper Extremity Injury Location: wrist (thumb spica) <Charlie Johnson - Last Filed: 03/05/24 21:14> Medical Decision Making <Neida Sullivan - Last Filed: 03/05/24 18:56> - Lab Data Result diagrams: 03/05/24 20:02 03/05/24 20:02 <Rocky Johnsonsse D - Last Filed: 03/05/24 21:14> - Medical Decision Making I performed the quick note portion of this chart. Electronically signed by Neida Sullivan PA-C (Neida Sullivan) Was pt. sent in by a medical professional or institution (KEERTHI Oleary, CLERICAL DENTIST ASSISTANT, urgent care, hospital, or group home...) When possible be specific @ -No Did you speak to anyone other than the patient for history (EMS, parent, family, police, friend...)? What history was obtained from this source @ -Some history obtained from patient's family states that she has been passing out Did you review nursing and triage notes (agree or disagree)? Why? @ -I reviewed and agree with nursing and triage notes Were old charts reviewed (outside hosp., previous admission, EMS record, old EKG, old radiological studies, urgent care reports/EKG's, group home records)? Report findings @ -No old charts were reviewed Differential Diagnosis (chest pain, altered mental status, abdominal pain women, abdominal pain men, vaginal bleeding, musculoskeletal, weakness, fever, dyspnea, syncope, headache, dizziness, GI bleed, back pain, seizure, CVA, palpatations, mental health)? @ -Differential Syncope: Valvular disease, hypertrophic cardiomyopathy, pulmonary embolism, tamponade, tachycardia, bradycardia, [place], hypovolemia, hemorrhage, dissection, anemia, intracranial hemorrhage, seizure, hypoglycemia, carbon monoxide poisoning, this is not meant to be an all-inclusive list. EKG interpreted by me (3pts min.). @ - X-rays interpreted by me (1pt min.). @ -X-ray of the hand shows fractured base of the thumb CT interpreted by me (1pt min.). @ -CT brain and CT face shows no acute processes U/S interpreted by me (1pt. min.). @ -None done What testing was considered but not performed or refused? (CT, X-rays, U/S, labs)? Why? @ -None What meds were considered but not given or refused? Why? @ -None Was smoking cessation discussed for >3mins.? @ -No Were there social determinants of health that impacted care today? How? (Homelessness, low income, unemployed, alcoholism, drug addiction, transportation, low edu. Level, literacy, decrease access to med. care, shelter, rehab)? @ -No Was there de-escalation of care discussed even if they declined (Discuss DNR or withdrawal of care, Hospice)? DNR status @ -No What co-morbidities impacted this encounter? (DM, HTN, Smoking, COPD, CAD, Cancer, CVA, ARF, Chemo, Hep., AIDS, mental health diagnosis, sleep apnea, morbid obesity)? @ -None Was patient admitted / discharged? Hospital course, mention meds given and route, prescriptions, significant lab abnormalities, going to OR and other pertinent info. @ -73-year-old female presents to the emergency department with syncope. Patient has been falling recently. Patient's falls are not mechanical. Patient denies any cardiac comorbidities. Vital signs upon arrival are within acceptable limits. Labs are within acceptable limits. X-ray shows comminuted fracture of the base of the right first proximal phalanx Did you discuss the management of the patient with other professionals (professionals i.e. , PA, CLERICAL DENTIST ASSISTANT, lab, RT, psych nurse, delinquency prevention social worker, office nurse, teacher, aoc plans intelligence officer chief, case management social worker)? Give summary @ -Case discussed with Dr. Snider for admission Was critical care preformed (if so, how long)? @ -No Undiagnosed new problem with uncertain prognosis? @ -No Drug Therapy requiring intensive monitoring for toxicity (Heparin, Nitro, Insulin, Cardizem)? @ -No Were any procedures done? @ -No Diagnosis/symptom? Acute, or Chronic, or Acute on Chronic? Uncomplicated (without systemic symptoms) or Complicated (systemic symptoms)? @ -Syncope, hand fracture Side effects of treatment? @ -No Exacerbation, Progression, or Severe Exacerbation? @ -No Poses a threat to life or bodily function? How? (Chest pain, [place], [place], pneumonia, PE, COPD, DKA, ARF, appy, cholecystitis, CVA, Diverticulitis, Homicidal, Suicidal, threat to staff... and all critical care pts) @ -yes (Charlie Johnson) - Lab Data Lab Results 03/05/24 03/05/24 03/05/24 Range/Units 20:02 20:02 20:02 WBC 8.3 (3.8-10.6) k/uL RBC 4.23 (3.80-5.40) m/uL Hgb 13.3 (11.4-16.0) gm/dL Hct 40.1 (34.0-46.0) % MCV 94.8 (80.0-100.0) fL MCH 31.4 (25.0-35.0) pg MCHC 33.1 (31.0-37.0) g/dL RDW 14.6 (11.5-15.5) % Plt Count 221 (150-450) k/uL MPV 8.1 Neutrophils % 74 % Lymphocytes % 17 % Monocytes % 5 % Eosinophils % 3 % Basophils % 0 % Neutrophils # 6.2 (1.3-7.7) k/uL Lymphocytes # 1.4 (1.0-4.8) k/uL Monocytes # 0.4 (0-1.0) k/uL Eosinophils # 0.2 (0-0.7) k/uL Basophils # 0.0 (0-0.2) k/uL PT 14.0 H (10.0-12.5) sec INR 1.3 H (<1.2) APTT 23.5 (22.0-30.0) sec Sodium 138 (137-145) mmol/L Potassium 4.2 (3.5-5.1) mmol/L Chloride 110 H (98-107) mmol/L Carbon Dioxide 22 (22-30) mmol/L Anion Gap 6 mmol/L BUN 22 H (7-17) mg/dL Creatinine 1.15 H (0.52-1.04) mg/dL Est GFR (CKD-EPI)AfAm 54 (>60 ml/min/1.73 sqM) Est GFR (CKD-EPI)NonAf 47 (>60 ml/min/1.73 sqM) Glucose 113 H (74-99) mg/dL Calcium 9.8 (8.4-10.2) mg/dL Total Bilirubin 1.2 (0.2-1.3) mg/dL AST 22 (14-36) U/L ALT 16 (4-34) U/L Alkaline Phosphatase 113 (38-126) U/L Troponin I (0.000-0.034) ng/mL Total Protein 6.6 (6.3-8.2) g/dL Albumin 3.9 (3.5-5.0) g/dL 03/05/24 Range/Units 20:02 WBC (3.8-10.6) k/uL RBC (3.80-5.40) m/uL Hgb (11.4-16.0) gm/dL Hct (34.0-46.0) % MCV (80.0-100.0) fL MCH (25.0-35.0) pg MCHC (31.0-37.0) g/dL RDW (11.5-15.5) % Plt Count (150-450) k/uL MPV Neutrophils % % Lymphocytes % % Monocytes % % Eosinophils % % Basophils % % Neutrophils # (1.3-7.7) k/uL Lymphocytes # (1.0-4.8) k/uL Monocytes # (0-1.0) k/uL Eosinophils # (0-0.7) k/uL Basophils # (0-0.2) k/uL PT (10.0-12.5) sec INR (<1.2) APTT (22.0-30.0) sec Sodium (137-145) mmol/L Potassium (3.5-5.1) mmol/L Chloride (98-107) mmol/L Carbon Dioxide (22-30) mmol/L Anion Gap mmol/L BUN (7-17) mg/dL Creatinine (0.52-1.04) mg/dL Est GFR (CKD-EPI)AfAm (>60 ml/min/1.73 sqM) Est GFR (CKD-EPI)NonAf (>60 ml/min/1.73 sqM) Glucose (74-99) mg/dL Calcium (8.4-10.2) mg/dL Total Bilirubin (0.2-1.3) mg/dL AST (14-36) U/L ALT (4-34) U/L Alkaline Phosphatase (38-126) U/L Troponin I <0.012 (0.000-0.034) ng/mL Total Protein (6.3-8.2) g/dL Albumin (3.5-5.0) g/dL Disposition <Neida Sullivan - Last Filed: 03/05/24 18:56> Decision Time: 21:14 <Charlie Johnson - Last Filed: 03/05/24 21:14> Clinical Impression: Syncope Disposition: ADMITTED IP TO THIS HOSP Condition: Fair Referrals: Dipak Park MD [Primary Care Provider] - 1-2 days
--- NOTE | 2024-03-05 19:54 | CT ---
EXAMINATION TYPE: CT brain wo con, CT facial bones wo con CT DLP: 738.8 mGycm, Automated exposure control for dose reduction was used. DATE OF EXAM: 03/05/2024 7:29 PM COMPARISON: 01/31/2024. CLINICAL INDICATION: Female, 73 years old with history of fall with HI on warfarin, TRAUMA TO FACE FR OM FALL TECHNIQUE: Brain: Axial CT images of the brain were obtained with coronal and sagittal reformats created and rev iewed. Axial CT imaging of the facial structures with sagittal coronal reformats. Contrast used: None. Oral contrast used: None. FINDINGS: Brain: Extra-axial spaces: No abnormal extra-axial fluid collections. Ventricular system: Dilatation in proportion to cerebral atrophy. Cerebral parenchyma: Cerebral atrophy. No acute intraparenchymal hemorrhage or mass effect. The weber -white junction is well differentiated. Scattered hypoattenuating areas are seen within the white mat ter. Cerebellum: Unremarkable. Mass effect: No evidence of midline shift. Intracranial vasculature: unremarkable Soft tissues: Normal. Calvarium/osseous structures: No depressed skull fracture. Paranasal sinuses and mastoid air cells: Mild scattered paranasal sinus disease. Visualized orbits: Orbital contents are intact. Facial structures. Mild right for head scalp edema. IMPRESSION: 1. No acute intracranial process. 2. Nonspecific white matter changes, likely secondary to chronic small vessel ischemic disease. 3. Right 400 scalp edema without evidence for fracture.
--- NOTE | 2024-03-05 19:55 | XR ---
EXAMINATION TYPE: XR hand complete RT DATE OF EXAM: 03/05/2024 7:32 PM CLINICAL INDICATION: Female, 73 years old with history of thumb injury; [facility] COMPARISON: None TECHNIQUE: XR hand complete RT Frontal, lateral and oblique views were obtained. FINDINGS/IMPRESSION: Comminuted fracture of the first digit proximal phalanx with intra-articular extension into the metac arpal phalangeal joint. Multiple fracture fragments are visualized extending to the articular surface
[2024-03-05 20:09] LABS: Basophils % (A) 0 %; Eosinophils # (A) 0.2 k/uL (0-0.7); Eosinophils % (A) 3 %; HCT 40.1 % (34.0-46.0); HGB 13.3 gm/dL (11.4-16.0); Lymphocytes # (A) 1.4 k/uL (1.0-4.8); Lymphocytes % (A) 17 %; MCH 31.4 pg (25.0-35.0); MCHC 33.1 g/dL (31.0-37.0); MCV 94.8 fL (80.0-100.0); Mean Platelet Volume 8.1; Monocytes # (A) 0.4 k/uL (0-1.0); Monocytes % (A) 5 %; Neutrophils # (A) 6.2 k/uL (1.3-7.7); Neutrophils % (A) 74 %; Platelet Count 221 k/uL (150-450); RBC 4.23 m/uL (3.80-5.40); RDW 14.6 % (11.5-15.5); WBC 8.3 k/uL (3.8-10.6)
[2024-03-05 20:19] LABS: INR 1.3 (<1.2); Partial Thromboplastin Time 23.5 sec (22.0-30.0)
[2024-03-05 20:30] LABS: ALT 16 U/L (4-34); AST 22 U/L (14-36); African American GFR (CKD) 54 (>60 ml/min/1.73 sqM); Albumin 3.9 g/dL (3.5-5.0); Alkaline Phosphatase 113 U/L (38-126); Anion Gap 6 mmol/L; Blood Urea Nitrogen 22 mg/dL (7-17); Calcium 9.8 mg/dL (8.4-10.2); Carbon Dioxide 22 mmol/L (22-30); Chloride 110 mmol/L (98-107); Glucose 113 mg/dL (74-99); Non-African American GFR(CKD) 47 (>60 ml/min/1.73 sqM); Potassium 4.2 mmol/L (3.5-5.1); Sodium 138 mmol/L (137-145); Total Bilirubin 1.2 mg/dL (0.2-1.3); Total Protein 6.6 g/dL (6.3-8.2)
[2024-03-05] MEDS ORDERED: NALOXONE 0.4 MG/ML 1 ML VIAL IV PRN (21:10)
[2024-03-05] MEDS: SODIUM CHLORIDE 0.9% 1,000 ML IV SCH (21:37)
[2024-03-05] MEDS: ACETAMINOPHEN TAB 325 MG TAB PO PRN (23:45)
[2024-03-06] MEDS: ATORVASTATIN 20 MG TAB PO SCH (09:19)
[2024-03-06] MEDS: carvediloL 6.25 MG TAB PO SCH (09:19)
[2024-03-06] MEDS ORDERED: methocarbamoL 750 MG TAB PO PRN (10:35)
[2024-03-06] MEDS ORDERED: LORazepam 0.5 MG TAB PO PRN (10:35)
[2024-03-06] MEDS ORDERED: SENNOSIDES-DOCUSATE SODIUM 1 EACH TAB PO PRN (10:35)
[2024-03-06] MEDS ORDERED: ALBUTEROL NEBULIZED 2.5 MG/3 ML INHALATION PRN (10:35)
[2024-03-06] MEDS: buPROPion XL 150 MG TAB.ER.24H PO SCH (11:31)
[2024-03-06] MEDS: MONTELUKAST 10 MG TAB PO SCH (11:31)
[2024-03-06] MEDS: PANTOPRAZOLE 40 MG TABLET PO SCH (11:31)
[2024-03-06] MEDS: SERTRALINE 50 MG TAB PO SCH (11:32)
[2024-03-06] MEDS ORDERED: DEXTROSE 50% SYRINGE 50 ML IVP PRN ×2 (11:57)
[2024-03-06 12:05] LABS: Glucose,Whole Blood 110 mg/dL (70-110)
[2024-03-06] MEDS: INSULIN ASPART (NovoLOG) 100 UNIT/ML VIAL SQ SCH (12:05)
[2024-03-06] MEDS: LACTATED RINGERS 1,000 ML IV SCH (12:13)
--- NOTE | 2024-03-06 12:31 | P.CRDCN ---
History of Present Illness Consult date: 03/06/24 Reason for Consult (text): Syncope History of present illness: This is a 73-year-old female with past medical history of hypertension, hyperlip idemia, history of DVT on Coumadin. Patient had a fall about 3 weeks ago fracturing her right shoulder with no plan for surgical intervention. Patient had another fall which led her into the hospital on this admission. She states she was standing up and she fell forward onto her face. Noted to have bruising to the forehead and right orbit and is complaining of pain to her right hand. She states she often feels dizzy. Patient did have orthostatic changes on presentation with supine to sitting. Blood pressure is now 115/99, heart rate in the 60s, pulse ox 94% on room air. EKG: Right hand x-ray reveals comminuted fracture of the first digit proximal phalanx CAT scan of the brain revealed no acute process. Chronic small vessel ischemic change. Scalp edema without evidence of fracture. Laboratory studies: CBC normal. INR 1.3. BUN 22 creatinine 1.15, potassium 4.2. Troponin negative x 1. TSH 2.9. Home cardiac medications: Atorvastatin 20 mg daily, Coreg 12.5 mg daily, lisinopril 2.5 mg at bedtime, warfarin 5 mg at bedtime. Review Of Systems: At the time of my exam: CONSTITUTIONAL: Denies fever or chills. HEENT: Denies blurred vision, vision changes, or eye pain. Denies hemoptysis CARDIOVASCULAR: Denies chest pain. Denies orthopnea. Denies PND. Denies palpitations RESPIRATORY: Denies shortness of breath. GASTROINTESTINAL: Denies abdominal pain. Denies nausea or vomiting. HEMATOLOGIC: Denies bleeding disorders. GENITOURINARY: Denies any blood in urine. SKIN: Denies puritis. Denies rash. Physical examination: Gen: This is a morbidly obese 73-year-old female appears to be in no acute distress VS: reviewed HEENT: Head has ecchymosis to the forehead and right orbit, normocephalic. Pupils equal, round. Sclerae is anicteric. NECK: Supple. No JVD. LUNGS: Clear to auscultation. No wheezes or rhonchi. No intercostal retractions. HEART: Regular rate and rhythm. No murmur. ABDOMEN: Soft No tenderness. EXTREMITIES: No pedal edema. No calf tenderness. NEUROLOGICAL: Patient is awake, alert and oriented x3. Assessment: Syncopal episodes rule out cardiac etiology Hypertension Hyperlipidemia Recent right shoulder fracture secondary to fall Right thumb fracture secondary to fall Plan: Resume patient's home cardiac medications with the following changes Decrease Coreg to 6.25 mg daily and increase lisinopril to 5 mg at bedtime Continue telemetry monitoring Obtain 2-D echocardiogram and Doppler study to assess cardiac structure and function Further recommendations to follow based upon clinical course Thank you kindly for this consultation. Nurse practitioner note has been reviewed, I agree with documented findings and plan of care. Patient was seen and examined. Past Medical History Past Medical History: Asthma, Diabetes Mellitus, Deep Vein Thrombosis (DVT), Hypertension, Osteoarthritis (OA), Pulmonary Embolus (PE) Additional Past Medical History / Comment(s): chronic sinus issues and allergies, Pre-diabetes Type 2 (on pill) 2023. History of Any Multi-Drug Resistant Organisms: None Reported Past Surgical History: Orthopedic Surgery Additional Past Surgical History / Comment(s): meniscus repair in left knee Past Anesthesia/Blood Transfusion Reactions: No Reported Reaction Past Psychological History: No Psychological Hx Reported Smoking Status: Never smoker Past Alcohol Use History: None Reported Past Drug Use History: None Reported Medications and Allergies Home Medications Medication Instructions Recorded Confirmed Type Carvedilol [Coreg] 12.5 mg PO DAILY 04/03/16 03/06/24 History Montelukast [Singulair] 10 mg PO DAILY 04/03/16 03/06/24 History Atorvastatin [Lipitor] 20 mg PO DAILY 12/21/20 03/06/24 History Omeprazole Magnesium [PriLOSEC OTC] 20 mg PO DAILY 12/21/20 03/06/24 History Warfarin [Coumadin] 5 mg PO HS 12/21/20 03/06/24 History Ibuprofen [Motrin Ib] 800 mg PO DAILY PRN 10/20/21 03/06/24 History Sertraline [Zoloft] 50 mg PO DAILY 10/20/21 03/06/24 History Fluticasone Nasal [place] [Flonase 1 spr EA NOSTRIL BID PRN 02/01/24 03/06/24 History Nasal [place]] Triamcinolone 0.5% Cream [Kenalog 1 applic TOPICAL BID 02/01/24 03/06/24 History 0.5% Cream] buPROPion XL [Wellbutrin XL] 150 mg PO DAILY 02/01/24 03/06/24 History Sennosides-Docusate Sodium 1 tab PO BID PRN #60 tablet 02/02/24 03/06/24 Rx [Senokot-S] methocarbamoL [Robaxin-750] 750 mg PO QID PRN tab 02/02/24 03/06/24 Rx Albuterol Sulfate [Albuterol 2 puff PO RT-QID PRN 03/06/24 03/06/24 History Sulfate Hfa] HYDROcodone/APAP 5-325MG [[place] 5] 1 tab PO Q6HR PRN 03/06/24 03/06/24 History LORazepam [Ativan] 0.5 mg PO DAILY PRN 03/06/24 03/06/24 History Ondansetron Odt [Zofran Odt] 4 mg PO Q6H PRN 03/06/24 03/06/24 History Ondansetron [Zofran] 4 mg PO Q6H PRN 03/06/24 03/06/24 History lisinopriL [Zestril] 2.5 mg PO HS 03/06/24 03/06/24 History Allergies Allergy/AdvReac Type Severity Reaction Status Date / Time latex Allergy Rash/Hives Verified 03/06/24 07:43 metformin AdvReac Nausea Verified 03/06/24 07:43 Physical Exam Vitals: Vital Signs Temp Pulse Resp BP BP BP Pulse Ox 03/06/24 07:19 58 L 18 120/78 94 L 03/06/24 06:00 62 18 117/62 97 03/06/24 02:35 61 16 104/58 91 L 03/05/24 23:48 60 18 109/58 96 03/05/24 22:29 88/61 124/72 03/05/24 20:56 63 16 125/69 97 03/05/24 18:58 98 F 70 20 119/76 Intake and Output 03/05/24 03/06/24 03/06/24 22:59 06:59 14:59 Other: Weight 127.006 kg Results 03/05/24 20:02 03/05/24 20:02 Cardiac Enzymes 03/05/24 03/05/24 Range/Units 20:02 20:02 AST 22 (14-36) U/L Troponin I <0.012 (0.000-0.034) ng/mL Coagulation 03/05/24 Range/Units 20:02 PT 14.0 H (10.0-12.5) sec APTT 23.5 (22.0-30.0) sec CBC 03/05/24 Range/Units 20:02 WBC 8.3 (3.8-10.6) k/uL RBC 4.23 (3.80-5.40) m/uL Hgb 13.3 (11.4-16.0) gm/dL Hct 40.1 (34.0-46.0) % Plt Count 221 (150-450) k/uL Comprehensive Metabolic Panel 03/05/24 Range/Units 20:02 Sodium 138 (137-145) mmol/L Potassium 4.2 (3.5-5.1) mmol/L Chloride 110 H (98-107) mmol/L Carbon Dioxide 22 (22-30) mmol/L BUN 22 H (7-17) mg/dL Creatinine 1.15 H (0.52-1.04) mg/dL Glucose 113 H (74-99) mg/dL Calcium 9.8 (8.4-10.2) mg/dL AST 22 (14-36) U/L ALT 16 (4-34) U/L Alkaline Phosphatase 113 (38-126) U/L Total Protein 6.6 (6.3-8.2) g/dL Albumin 3.9 (3.5-5.0) g/dL Current Medications Generic Name Dose Route Start Last Admin Trade Name Leonardoq PRN Reason Stop Dose Admin Acetaminophen 650 mg 03/05/24 23:30 03/05/24 23:45 Acetaminophen Tab 325 Mg Tab PO 650 mg Q4HR PRN Administration Fever and/ or Pain Sodium Chloride 1,000 mls @ 20 mls/hr 03/05/24 21:15 03/05/24 21:37 Saline 0.9% IV 20 mls/hr .Q24H BENITO Administration Naloxone HCl 0.2 mg 03/05/24 21:10 Naloxone 0.4 Mg/Ml 1 Ml Vial IV Q2M PRN Opioid Reversal Intake and Output 03/05/24 03/06/24 03/06/24 22:59 06:59 14:59 Other: Weight 127.006 kg 03/05/24 20:02 03/05/24 20:02
[2024-03-06 17:29] LABS: Glucose,Whole Blood 98 mg/dL (70-110)
--- NOTE | 2024-03-06 18:01 | P.CNOR ---
History of Present Illness - [facility] Consult date: 03/06/24 Consult reason: other (Right thumb fracture, left proximal humerus fracture) History of present illness: The patient is a 73 y/o female known to our practice a few weeks ago for evaluation of a left proximal humerus fracture and right wrist TFCC tear. She was in [facility] at that time for rehab but has since been discharged home. The patient states she fell yesterday while ambulating at home but she does not r emember why or how she fell. She was admitted for further evaluation of syncope. She found to have a right thumb fracture from the fall yesterday. She states her left shoulder is feeling better and she has not been wearing as sling and has been working on elbow motion. Her wrist was feeling better as well. She was placed in a thumb spica brace and orthopedics was consulted for further evaluation of the right thumb. She states her thumb is painful because she can still move it in the splint and now her hand is swollen. Review of Systems Constitutional: Denies chills, Denies fatigue, Denies fever Cardiovascular: Reports syncope, Denies chest pain, Denies shortness of breath Respiratory: Denies cough Musculoskeletal: right: hand pain, hand stiffness, hand swelling, left: shoulder pain, shoulder stiffness, shoulder swelling Past Medical History Past Medical History: Asthma, Diabetes Mellitus, Deep Vein Thrombosis (DVT), Hypertension, Osteoarthritis (OA), Pulmonary Embolus (PE) Additional Past Medical History / Comment(s): chronic sinus issues and allergies, Pre-diabetes Type 2 (on pill) 2023. History of Any Multi-Drug Resistant Organisms: None Reported Past Surgical History: Orthopedic Surgery Additional Past Surgical History / Comment(s): meniscus repair in left knee Past Anesthesia/Blood Transfusion Reactions: No Reported Reaction Past Psychological History: No Psychological Hx Reported Smoking Status: Never smoker Past Alcohol Use History: None Reported Past Drug Use History: None Reported Medications and Allergies Home Medications Medication Instructions Recorded Confirmed Type Carvedilol [Coreg] 12.5 mg PO DAILY 04/03/16 03/06/24 History Montelukast [Singulair] 10 mg PO DAILY 04/03/16 03/06/24 History Atorvastatin [Lipitor] 20 mg PO DAILY 12/21/20 03/06/24 History Omeprazole Magnesium [PriLOSEC OTC] 20 mg PO DAILY 12/21/20 03/06/24 History Warfarin [Coumadin] 5 mg PO HS 12/21/20 03/06/24 History Ibuprofen [Motrin Ib] 800 mg PO DAILY PRN 10/20/21 03/06/24 History Sertraline [Zoloft] 50 mg PO DAILY 10/20/21 03/06/24 History Fluticasone Nasal [place] [Flonase 1 spr EA NOSTRIL BID PRN 02/01/24 03/06/24 History Nasal [place]] Triamcinolone 0.5% Cream [Kenalog 1 applic TOPICAL BID 02/01/24 03/06/24 History 0.5% Cream] buPROPion XL [Wellbutrin XL] 150 mg PO DAILY 02/01/24 03/06/24 History Sennosides-Docusate Sodium 1 tab PO BID PRN #60 tablet 02/02/24 03/06/24 Rx [Senokot-S] methocarbamoL [Robaxin-750] 750 mg PO QID PRN tab 02/02/24 03/06/24 Rx Albuterol Sulfate [Albuterol 2 puff PO RT-QID PRN 03/06/24 03/06/24 History Sulfate Hfa] HYDROcodone/APAP 5-325MG [[place] 5] 1 tab PO Q6HR PRN 03/06/24 03/06/24 History LORazepam [Ativan] 0.5 mg PO DAILY PRN 03/06/24 03/06/24 History Ondansetron Odt [Zofran Odt] 4 mg PO Q6H PRN 03/06/24 03/06/24 History Ondansetron [Zofran] 4 mg PO Q6H PRN 03/06/24 03/06/24 History lisinopriL [Zestril] 2.5 mg PO HS 03/06/24 03/06/24 History Allergies Allergy/AdvReac Type Severity Reaction Status Date / Time latex Allergy Rash/Hives Verified 03/06/24 07:43 metformin AdvReac Nausea Verified 03/06/24 07:43 Physical Examination The patient is a 73 y/o female in no acute distress. She is alert and oriented x3. Exam of the right thumb in the splint reveals swelling to the dorsal hand and fingers. She is able to wiggle her thumb with some minor pain. Exam of the left shoulder reveals improving tenderness at the proximal humerus Range of motion is restricted secondary to guarding. Elbow motion is ok. Circulation status is intact. Neurovascular status is intact. No evidence of compartment syndrome. Results X-ray of the right hand reveals a comminuted proximal phalanx fracture of the right thumb. Fracture alignment appears satisfactory. - Labs Labs: Abnormal Lab Results - Last 24 Hours (Table) 03/05/24 03/05/24 Range/Units 20:02 20:02 PT 14.0 H (10.0-12.5) sec INR 1.3 H (<1.2) Chloride 110 H (98-107) mmol/L BUN 22 H (7-17) mg/dL Creatinine 1.15 H (0.52-1.04) mg/dL Glucose 113 H (74-99) mg/dL H & H 03/05/24 Range/Units 20:02 Hgb 13.3 (11.4-16.0) gm/dL Hct 40.1 (34.0-46.0) % Coagulation 03/05/24 Range/Units 20:02 INR 1.3 H (<1.2) Result Diagrams: 03/05/24 20:02 03/05/24 20:02 Assessment and Plan (1) Fracture of proximal phalanx of right thumb Current Visit: Yes Status: Acute Code(s): S62.511A - DISP FX OF PROXIMAL PHALANX OF RIGHT THUMB, INIT FOR CLOS FX SNOMED Code(s): 701145756 (2) Closed fracture of left proximal humerus Current Visit: Yes Status: Acute Code(s): S42.202A - UNSP FRACTURE OF UPPER END OF LEFT HUMERUS, INIT FOR CLOS FX SNOMED Code(s): 29011925 (3) Syncope Current Visit: Yes Status: Acute Code(s): R55 - SYNCOPE AND COLLAPSE SNOMED Code(s): 056543503 (4) Fall Current Visit: No Status: Acute Code(s): W19.XXXA - UNSPECIFIED FALL, INITIAL ENCOUNTER SNOMED Code(s): 1825186 Plan: The clinical and x-rays findings were discussed with the patient. The case was discussed with Dr. Vieira. A thumb spica brace will be ordered and obtained tomorrow. Continue nonweightbearing on left arm and she may use the walker with the right wrist brace on if possible. The patient was encouraged to ice and elevate the right thumb as much as possible. She will need to resume PT/OT when cleared by internal medicine and cardiology. She may need additional time in skilled rehab due to her recent fractures on both upper extremities. We will co zander to follow the patient.
[2024-03-06] MEDS: lisinopriL 5 MG TAB PO SCH (21:11)
--- NOTE | 2024-03-06 21:29 | P.HPIM ---
History of Present Illness H&P Date: 03/06/24 Chief Complaint: Passed out pleasant 73-year-old patient, follows with Dr. Park. Chronic stable medical condition include asthma, diabetes, DVT, hypertension, osteoarthritis/PE. Recently in the hospital with comminuted displaced fracture of the left humeral head. Patient was discharged to rehab on February 01. To stay with her son and [id number]. Patient has been diagnosed with diabetes and started on metformin. Had GI side effect, concerned about the same discontinue the same. Has been eating less especially no sweets. Patient also an overall increase that is decreased. Patient last week had 2 episodes of simply passing out. Patient was standing with a walker. She had passed out. No chest pain palpitation. No focal weakness. No neurolog ical symptoms. She was found to be orthostatic in the ER. And on the dry side. No chest pain or palpitations. In the ER patient has a friend and [id number] at the bedside. With the fall she injured her right thumb Review of systems: GEN.: Tired EYES: None HEENT: Bruising on the face. NECK: None RESPIRATORY: None CARDIOVASCULAR: None GASTROINTESTINAL: None GENITOURINARY: None MUSCULOSKELETAL: Joint pains including left shoulder, right thumb LYMPHATICS: None HEMATOLOGICAL: None PSYCHIATRY: None NEUROLOGICAL: Using a walker Social history: No smoking no alcohol. Really staying with her son and [id number] Physical examination: VITAL SIGNS: Miguel, 58, 18, lying down 88 x 61, standing up 124 x 72: Orthostatic GENERAL: BMI 45.2, in a recliner EYES: Pupils equal. Conjunctiva marielle l. HEENT: External appearance of nose and ears normal, oral cavity grossly normal. Bruising on the nasal bridge NECK: JVD unable to assess; masses not palpable. HEART: Heart sounds distant; nonpitting edema. LUNGS: Respiratory rate normal; distant breath sounds. ABDOMEN: Soft, nontender, liver spleen not palpable, no masses palpable. PSYCH: Alert and oriented x3; mood and affect mareille l. MUSCULOSKELETAL:No Clubbing/cyanosis;muscles-grossly intact. OA. Left shoulder reviewed and range of motion. Right hand thumb and wrist in dressing support NEUROLOGICAL: Cranial nerves grossly intact; no facial asymmetry, power and sensation grossly intact. LYMPHATICS: No lymph nodes palpable in the axilla and neck. Lower extremity lymphedema INVESTIGATIONS, reviewed in the clinical context: March 05, 2024: White count 8.3 hemoglobin 13.3 platelets 221 sodium 138 potassium 4.2 BUN [address] brain and face: Scalp edema. Chronic white matter changes. No fracture Right hand complete: Comminuted fracture of the first digit proximal phalanx with intra-articular extension into the metacarpal phalangeal joint. Multiple fracture fragments are visualized extending to the articular surface. EKG tracing normal sinus rhythm. Nonspecific T ST changes. Previous labs January 31: White count 9.1 hemoglobin 12.9 platelets 227 sodium 134 potassium 4.6 BUN 25 creatinine 0.88 Assessment plan: -Syncope from orthostatic hypotension resulting from dehydration with result of patient passing out. -Orthostatic hypotension from dehydration. IV fluids -Acute kidney injury, prerenal from decreased oral intake IV fluids -Acute comminuted fracture of the first digit proximal phalanx with intra- articular extension into the metacarpal phalangeal joint. Multiple fracture fragments are visualized extending to the articular surface.: Secondary to fall Continue dressing. Orthopedic consulted. -Left shoulder comminuted displaced fracture of the left humeral head secondary to fall. In February 2024. PT OT. -Essential hypertension. Coreg 6.25 twice daily. Zestril -Hyperlipidemia Lipitor 20 mg -Primary osteoarthritis Pain medications as needed -Depression Wellbutrin XL 150 mg Zoloft 50 mg -Chronic DVT PE Change Coumadin dose to 2.5 mg Monday and 5 mg other days. Will give 2.5 mg one-time dose today. -Chronic gait dysfunction does have a walker and a cane at home but does use it seldom. At baseline with unsteady on gait. -Morbid obesity BMI 50.2 Weight loss measures -Diabetes mellitus type 2 on oral hypoglycemic Metformin. Discontinued because of GI side effects. Accu-Cheks sliding scale insulin. Currently hold off hypoglycemic. Follow Accu-Cheks . -Superficial bruising on the face secondary to fall -Gait dysfunction -Full code Care was discussed with patient. The [id number] at the bedside. IV fluids at 50 cc an hour. Including very difficult for patient to manage with recent left shoulder fracture with limited use and now right thumb fracture. Patient is already using a walker. Will evaluate the patient for rehab. Past Medical History Past Medical History: Asthma, Diabetes Mellitus, Deep Vein Thrombosis (DVT), Hypertension, Osteoarthritis (OA), Pulmonary Embolus (PE) Additional Past Medical History / Comment(s): chronic sinus issues and allergies, Pre-diabetes Type 2 (on pill) 2023. History of Any Multi-Drug Resistant Organisms: None Reported Past Surgical History: Orthopedic Surgery Additional Past Surgical History / Comment(s): meniscus repair in left knee Past Anesthesia/Blood Transfusion Reactions: No Reported Reaction Past Psychological History: No Psychological Hx Reported Smoking Status: Never smoker Past Alcohol Use History: None Reported Past Drug Use History: None Reported Medications and Allergies Home Medications Medication Instructions Recorded Confirmed Type Carvedilol [Coreg] 12.5 mg PO DAILY 04/03/16 03/06/24 History Montelukast [Singulair] 10 mg PO DAILY 04/03/16 03/06/24 History Atorvastatin [Lipitor] 20 mg PO DAILY 12/21/20 03/06/24 History Omeprazole Magnesium [PriLOSEC OTC] 20 mg PO DAILY 12/21/20 03/06/24 History Warfarin [Coumadin] 5 mg PO HS 12/21/20 03/06/24 History Ibuprofen [Motrin Ib] 800 mg PO DAILY PRN 10/20/21 03/06/24 History Sertraline [Zoloft] 50 mg PO DAILY 10/20/21 03/06/24 History Fluticasone Nasal [place] [Flonase 1 spr EA NOSTRIL BID PRN 02/01/24 03/06/24 History Nasal [place]] Triamcinolone 0.5% Cream [Kenalog 1 applic TOPICAL BID 02/01/24 03/06/24 History 0.5% Cream] buPROPion XL [Wellbutrin XL] 150 mg PO DAILY 02/01/24 03/06/24 History Sennosides-Docusate Sodium 1 tab PO BID PRN #60 tablet 02/02/24 03/06/24 Rx [Senokot-S] methocarbamoL [Robaxin-750] 750 mg PO QID PRN tab 02/02/24 03/06/24 Rx Albuterol Sulfate [Albuterol 2 puff PO RT-QID PRN 03/06/24 03/06/24 History Sulfate Hfa] HYDROcodone/APAP 5-325MG [[place] 5] 1 tab PO Q6HR PRN 03/06/24 03/06/24 History LORazepam [Ativan] 0.5 mg PO DAILY PRN 03/06/24 03/06/24 History Ondansetron Odt [Zofran Odt] 4 mg PO Q6H PRN 03/06/24 03/06/24 History Ondansetron [Zofran] 4 mg PO Q6H PRN 03/06/24 03/06/24 History lisinopriL [Zestril] 2.5 mg PO HS 03/06/24 03/06/24 History Allergies Allergy/AdvReac Type Severity Reaction Status Date / Time latex Allergy Rash/Hives Verified 03/06/24 07:43 metformin AdvReac Nausea Verified 03/06/24 07:43 Physical Exam Vitals: Vital Signs Temp Pulse Resp BP BP BP Pulse Ox 03/06/24 10:07 64 18 134/85 94 L 03/06/24 07:19 58 L 18 120/78 94 L 03/06/24 06:00 62 18 117/62 97 03/06/24 02:35 61 16 104/58 91 L 03/05/24 23:48 60 18 109/58 96 03/05/24 22:29 88/61 124/72 03/05/24 20:56 63 16 125/69 97 03/05/24 18:58 98 F 70 20 119/76 Intake and Output 03/05/24 03/06/24 03/06/24 22:59 06:59 14:59 Other: Weight 127.006 kg Results CBC & Chem 7: 03/05/24 20:02 03/05/24 20:02 Labs: Abnormal Lab Results - Last 24 Hours (Table) 03/05/24 03/05/24 Range/Units 20:02 20:02 PT 14.0 H (10.0-12.5) sec INR 1.3 H (<1.2) Chloride 110 H (98-107) mmol/L BUN 22 H (7-17) mg/dL Creatinine 1.15 H (0.52-1.04) mg/dL Glucose 113 H (74-99) mg/dL
[2024-03-06] MEDS: WARFARIN 5 MG TAB PO SCH (23:19)
[2024-03-07 03:20] LABS: INR 1.4 (<1.2); Prothrombin Time 14.4 sec (10.0-12.5)
[2024-03-07 06:15] LABS: Glucose,Whole Blood 106 mg/dL (70-110)
--- NOTE | 2024-03-07 10:45 | P.PN ---
Subjective Progress Note Date: 03/07/24 Reason for Consult (text): Syncope History of present illness: This is a 73-year-old female with past medical history of hypertension, hyperlipidemia, history of DVT on Coumadin. Patient had a fall about 3 weeks ago fracturing her right shoulder with no plan for surgical intervention. Patient had another fall which led her into the hospital on this admission. She states she was standing up and she fell forward onto her face. Noted to have bruising to the forehead and right orbit and is complaining of pain to her right hand. She states she often feels dizzy. Patient did have orthostatic changes on presentation with supine to sitting. Blood pressure is now 115/99, heart rate in the 60s, pulse ox 94% on room air. EKG: Sinus rhythm with no acute ST changes Right hand x-ray reveals comminuted fracture of the first digit proximal phalanx CAT scan of the brain revealed no acute process. Chronic small vessel ischemic change. Scalp edema without evidence of fracture. Laboratory studies: CBC normal. INR 1.3. BUN 22 creatinine 1.15, potassium 4.2. Troponin negative x 1. TSH 2.9. Home cardiac medications: Atorvastatin 20 mg daily, Coreg 12.5 mg daily, lisinopril 2.5 mg at bedtime, warfarin 5 mg at bedtime. 03/07 Patient is seen today in follow-up on the observation unit. Telemetry is sinus rhythm. No arrhythmias. Blood pressure 137/83, heart rate 61, pulse ox 96% on room air. INR is 1.4. Physical examination: Gen: This is a morbidly obese 73-year-old female appears to be in no acute distress VS: reviewed HEENT: Head has ecchymosis to the forehead and right orbit, normocephalic. Pupils equal, round. Sclerae is anicteric. NECK: Supple. No JVD. LUNGS: Clear to auscultation. No wheezes or rhonchi. No intercostal retractions. HEART: Regular rate and rhythm. No murmur. ABDOMEN: Soft No tenderness. EXTREMITIES: No pedal edema. No calf tenderness. NEUROLOGICAL: Patient is awake, alert and oriented x3. Assessment: Syncopal episodes rule out cardiac etiology Hypertension Hyperlipidemia Recent right shoulder fracture secondary to fall Right thumb fracture secondary to fall Morbid obesity with BMI of 45 History of DVT Plan: Continue patient's home cardiac medications with the following changes decrease Coreg to 6.25 mg daily and increase lisinopril to 5 mg at bedtime Event monitor will be arranged prior to discharge Patient is cleared for discharge from cardiology and may follow-up with Dr. Roger in 1 month. Nurse practitioner note has been reviewed, I agree with documented findings and plan of care. Patient was seen and examined. Objective - Vital Signs Vital signs: Vital Signs Temp 97.8 F 03/07/24 07:00 Pulse 61 03/07/24 07:00 Resp 17 03/07/24 07:00 BP 137/83 03/07/24 07:00 Pulse Ox 96 03/07/24 07:00 FiO2 Intake & Output 03/06/24 03/07/24 03/07/24 18:59 06:59 18:59 Output Total 500 Balance -500 Weight 127.006 kg Output: Urine 500 Other: Voiding Method Toilet # Voids 1 1 - Labs CBC & Chem 7: 03/05/24 20:02 03/05/24 20:02 Labs: Abnormal Lab Results - Last 24 Hours (Table) 03/07/24 Range/Units 02:57 PT 14.4 H (10.0-12.5) sec INR 1.4 H (<1.2)
--- NOTE | 2024-03-07 11:06 | CA ---
Transthoracic Echo Report Name: Adelina Orellana Age: 73 Gender: F : 1950 Exam Date: 03/06/2024 16:00 Exam Location: [facility] Ht (in): 66 Wt (lb): 280 Ordering Physician: Gi Patel Attending/Referring Phys: [id number], Amanda Mosaic Worker Gayle Portillo, RDCS Procedure CPT: Indications: LVF Cardiac Hx: DVT, HTN Technical Quality: Fair Contrast 1: Definity Total Dose (mL): 2 Contrast 2: Total Dose (mL): MEASUREMENTS (Male / Female) Normal Values 2D ECHO LV Diastolic Diameter PLAX 5.3 cm 4.2 - 5.9 / 3.9 - 5.3 cm LV Systolic Diameter PLAX 4.1 cm IVS Diastolic Thickness 1.0 cm 0.6 - 1.0 / 0.6 - 0.9 cm LVPW Diastolic Thickness 1.0 cm 0.6 - 1.0 / 0.6 - 0.9 cm LV Relative Wall Thickness 0.4 RV Internal Dim ED PLAX 2.1 cm LA Systolic Diameter LX 6.0 cm 3.0 - 4.0 / 2.7 - 3.8 cm LV Diastolic Volume MOD 4C 78.5 cm??? LV Systolic Volume MOD 4C 22.7 cm??? LV Ejection Fraction MOD 4C 71.1 % LV Cardiac Index MOD 4C 1361.1 cm???/min???m??? LV Diastolic Length 4C 7.3 cm LV Systolic Length 4C 5.7 cm M-MODE Aortic Root Diameter MM 3.5 cm LA Systolic Diameter MM 4.8 cm LA Ao Ratio MM 1.4 AV Cusp Separation MM 2.4 cm DOPPLER Mitral E Point Velocity 78.8 cm/s Mitral A Point Velocity 73.4 cm/s Mitral E to A Ratio 1.1 MV Deceleration Time 337.2 ms MV E' Velocity 7.6 cm/s Mitral E to MV E' Ratio 10.3 TR Peak Velocity 283.2 cm/s TR Peak Gradient 32.1 mmHg Right Ventricular Systolic Press 37.1 mmHg FINDINGS Left Ventricle Left ventricular ejection fraction is estimated at 55-60%. Mildly increased posterior wall thickness. Left ventricular cavity size normal. No obvious regional wall motion abnormalities. Right Ventricle Normal right ventricular size and function. Mild pulmonary hypertension. Right Atrium Mild right atrial dilatation. Left Atrium Severely increased left atrial diameter. Mitral Valve Structurally normal mitral valve. Mitral valve thickened. Mild mitral regurgitation. Aortic Valve Trileaflet aortic valve. Diffuse thickening (sclerosis) of the aortic valve cusps without reduced excursion. No aortic regurgitation. Tricuspid Valve Structurally normal tricuspid valve. Trace to mild tricuspid regurgitation. No tricuspid stenosis. Pulmonic Valve Structurally normal pulmonic valve. Trace pulmonic regurgitation. No pulmonic stenosis. Pericardium No pericardial or pleural effusion. Echo free space anterior to the right ventricle likely represents a fat pad. Aorta Normal size aortic root and proximal ascending aorta. CONCLUSIONS Normal LV size and systolic function. Mild mitral and tricuspid regurgitation. No significant pulmonary hypertension. No pericardial effusion. Possible fat pad Previewed by: Dr. Carlie Roger MD (Electronically Signed) Final Date: 07 March 2024 11:05
[2024-03-07] MEDS: HYDROcodone/APAP 5-325MG 1 EACH TAB PO PRN (11:26)
[2024-03-07 11:49] LABS: African American GFR (CKD) 82 (>60 ml/min/1.73 sqM); Anion Gap 10 mmol/L; Blood Urea Nitrogen 19 mg/dL (7-17); Calcium 9.4 mg/dL (8.4-10.2); Carbon Dioxide 22 mmol/L (22-30); Chloride 102 mmol/L (98-107); Glucose 116 mg/dL (74-99); Non-African American GFR(CKD) 71 (>60 ml/min/1.73 sqM); Potassium 4.1 mmol/L (3.5-5.1); Sodium 134 mmol/L (137-145)
[2024-03-07 12:12] LABS: Glucose,Whole Blood 121 mg/dL (70-110)
[2024-03-07] MEDS: MIDODRINE 5 MG TAB PO SCH (12:30)
--- NOTE | 2024-03-07 14:00 | P.PN ---
Subjective Progress Note Date: 03/07/24 Principal diagnosis: Right thumb fracture and left proximal humerus fracture The patient is a 73 y/o female known to our practice a few weeks ago for evaluation of a left proximal humerus fracture and right wrist TFCC tear. She was in [facility] at that time for rehab but has since been discharged home. The patient states she fell yesterday while ambulating at home but she does not remember why or how she fell. She was admitted for further evaluation of syncope. She found to have a right thumb fracture from the fall yesterday. She states her left shoulder is feeling better and she has not been wearing as sling and has been working on elbow motion. Her wrist was feeling better as well. She was placed in a thumb spica brace and orthopedics was consulted for further evaluation of the right thumb. She states her thumb is painful because she can still move it in the splint and now her hand is swollen. Today, she is currently being fitted for the thumb spica brace during my exam. She states her thumb feels the same. No new complaints. Cardiology has adjusted her blood pressure medications due to orthostatic hypotension. Objective - Vital Signs Vital signs: Vital Signs Temp 97.8 F 03/07/24 07:00 Pulse 64 03/07/24 11:01 Resp 17 03/07/24 07:00 BP 149/80 03/07/24 11:01 Pulse Ox 96 03/07/24 07:00 FiO2 Intake & Output 03/06/24 03/07/24 03/07/24 18:59 06:59 18:59 Intake Total 0 Output Total 500 Balance -500 0 Weight 127.006 kg Intake: Oral 0 Output: Urine 500 Other: Voiding Method Toilet Toilet # Voids 1 1 - Exam The patient is a 73 y/o female in no acute distress. She is alert and oriented x3. Exam of the right thumb reveals no deformity. Swelling and bruising present. She is able to wiggle her thumb with some minor pain. Pain to palpation of the proximal phalanx. Exam of the left shoulder reveals improving tenderness at the proximal humerus Range of motion is restricted secondary to guarding. Elbow motion is ok. Circulation status is intact. Neurovascular status is intact. No evidence of compartment syndrome. - Labs CBC & Chem 7: 03/05/24 20:02 03/07/24 11:03 Labs: Abnormal Lab Results - Last 24 Hours (Table) 03/07/24 03/07/24 03/07/24 Range/Units 02:57 11:03 12:10 PT 14.4 H (10.0-12.5) sec INR 1.4 H (<1.2) Sodium 134 L (137-145) mmol/L BUN 19 H (7-17) mg/dL Glucose 116 H (74-99) mg/dL POC Glucose (mg/dL) 121 H (70-110) mg/dL Assessment and Plan (1) Fracture of proximal phalanx of right thumb Current Visit: Yes Status: Acute Code(s): S62.511A - DISP FX OF PROXIMAL PHALANX OF RIGHT THUMB, INIT FOR CLOS FX SNOMED Code(s): 931953108 (2) Closed fracture of left proximal humerus Current Visit: Yes Status: Acute Code(s): S42.202A - UNSP FRACTURE OF UPPER END OF LEFT HUMERUS, INIT FOR CLOS FX SNOMED Code(s): 51260574 (3) Syncope Current Visit: Yes Status: Acute Code(s): R55 - SYNCOPE AND COLLAPSE SNOMED Code(s): 112164766 (4) Fall Current Visit: No Status: Acute Code(s): W19.XXXA - UNSPECIFIED FALL, INITI AL ENCOUNTER SNOMED Code(s): 1423196 Plan: The clinical and x-rays findings were discussed with the patient. The case was discussed with Dr. Vieira. A thumb spica brace applied today. May remove for bathing and hand hygiene only. Continue nonweightbearing on left arm and she may use the walker with the right wrist brace on if possible. The patient was encouraged to ice and elevate the right thumb as much as possible. She will need to resume PT/OT when cleared by internal medicine and cardiology. She may need additional time in skilled rehab due to her recent fractures on both upper extremities. We will continue to follow the patient.
[2024-03-07 17:07] LABS: Glucose,Whole Blood 91 mg/dL (70-110)
--- NOTE | 2024-03-07 18:43 | P.PN ---
Progress Note - Text Progress Note Date: 03/07/24 Chief Complaint: Passed out pleasant 73-year-old patient, follows with Dr. Park. Chronic stable medical condition include asthma, diabetes, DVT, hypertension, osteoarthritis/PE. Recently in the hospital with comminuted displaced fracture of the left humeral head. Patient was discharged to rehab on February 01. To stay with her son and [id number]. Patient has been diagnosed with diabetes and started on metformin. Had GI side effect, concerned about the same discontinue the same. Has been eating less especially no sweets. Patient also an overall increase that is decreased. Patient last week had 2 episodes of simply passing out. Patient was standing with a walker. She had passed out. No chest pain palpitation. No focal weakness. No neurological symptoms. She was found to be orthostatic in the ER. And on the dry side. No chest pain or palpitations. In the ER patient has a friend and [id number] at the bedside. With the fall she injured her right thumb March 07: Lying in bed. A bit tired. Tolerating diet. She remains to be orthostatic. Was seen by cardiology. Midodrine was added. Social work is looking into rehab. Active Medications Acetaminophen (Acetaminophen Tab 325 Mg Tab) 650 mg PO Q4HR PRN PRN Reason: Fever and/ or Pain Last Admin: 03/06/24 21:14 Dose: 650 mg Hydrocodone Bitart/Acetaminophen (Hydrocodone/Apap 5-325mg 1 Each Tab) 1 each PO Q6HR PRN PRN Reason: Pain Last Admin: 03/07/24 18:07 Dose: 1 each Albuterol Sulfate (Albuterol Nebulized 2.5 Mg/3 Ml) 2.5 mg INHALATION RT-QID PRN PRN Reason: Shortness Of Breath Amlodipine Besylate (Amlodipine 5 Mg Tab) 5 mg PO HS BENITO Atorvastatin Calcium (Atorvastatin 20 Mg Tab) 20 mg PO DAILY BENITO Last Admin: 03/07/24 08:33 Dose: 20 mg Bupropion HCl (Bupropion Xl 150 Mg Tab.Er.24h) 150 mg PO DAILY BENITO Last Admin: 03/07/24 08:33 Dose: 150 mg Dextrose/Water (Dextrose 50% Syringe 50 Ml) 25 ml IVP PER PROTOCOL PRN; Protocol PRN Reason: Hypoglycemia Dextrose/Water (Dextrose 50% Syringe 50 Ml) 50 ml IVP PER PROTOCOL PRN; Protocol PRN Reason: Hypoglycemia Lactated Ringer's (Lactated Ringers) 1,000 mls @ 50 mls/hr IV .Q20H [facility] Last Admin: 03/07/24 18:02 Dose: 50 mls/hr Insulin Aspart (Insulin Aspart (Novolog) 100 Unit/Ml Vial) 0 unit SQ AC-TID [facility]; Protocol Last Admin: 03/07/24 17:59 Dose: Not Given Lisinopril (Lisinopril 5 Mg Tab) 5 mg PO HS [facility] Last Admin: 03/06/24 21:11 Dose: 5 mg Lorazepam (Lorazepam 0.5 Mg Tab) 0.5 mg PO DAILY PRN PRN Reason: Anxiety Methocarbamol (Methocarbamol 750 Mg Tab) 750 mg PO QID PRN PRN Reason: Muscle Spasm Midodrine (Midodrine 5 Mg Tab) 5 mg PO AC-TID [facility] Last Admin: 03/07/24 18:02 Dose: 5 mg Miscellaneous Information (Warfarin Per Pharmacy) 0 each MISCELLANE DIRECTED PRN PRN Reason: PER PROTOCOL Montelukast Sodium (Montelukast 10 Mg Tab) 10 mg PO DAILY [facility] Last Admin: 03/07/24 08:33 Dose: 10 mg Naloxone HCl (Naloxone 0.4 Mg/Ml 1 Ml Vial) 0.2 mg IV Q2M PRN PRN Reason: Opioid Reversal Ondansetron HCl (Ondansetron 4 Mg Tab) 4 mg PO Q6H PRN PRN Reason: Nausea Pantoprazole Sodium (Pantoprazole 40 Mg Tablet) 40 mg PO AC-BRKFST [facility] Last Admin: 03/07/24 06:51 Dose: 40 mg Senna/Docusate Sodium (Sennosides-Docusate Sodium 1 Each Tab) 1 each PO BID PRN PRN Reason: Constipation Sertraline HCl (Sertraline 50 Mg Tab) 50 mg PO DAILY [facility] Last Admin: 03/07/24 08:33 Dose: 50 mg Warfarin Sodium (Warfarin 3 Mg Tab) 6 mg PO ONCE@2100 ONE Stop: 03/07/24 21:01 Social history: No smoking no alcohol. Really staying with her son and [id number] Physical examination: VITAL SIGNS: 98, 61, 18, standing 77/59, lying down 149/80 GENERAL: Resting in bed EYES: Pupils equal. Conjunctiva marielle l. HEENT: External appearance of nose and ears normal, oral cavity grossly normal. Bruising on the nasal bridge NECK: JVD unable to assess; masses not palpable. HEART: Heart sounds distant; nonpitting edema. LUNGS: Respiratory rate normal; distant breath sounds. ABDOMEN: Soft, nontender, liver spleen not palpable, no masses palpable. PSYCH: Alert and oriented x3; mood and affect marielle l. MUSCULOSKELETAL:No Clubbing/cyanosis;muscles-grossly intact. OA. Left shoulder reviewed and range of motion. Right hand thumb and wrist in dressing support LYMPHATICS: No lymph nodes palpable in the axilla and neck. Lower extremity lymphedema INVESTIGATIONS, reviewed in the clinical context: March 07: BUN 19 creatinine 0.82 March 05, 2024: White count 8.3 hemoglobin 13.3 platelets 221 sodium 138 potassium 4.2 BUN [address] brain and face: Scalp edema. Chronic white matter changes. No fracture Right hand complete: Comminuted fracture of the first digit proximal phalanx with intra-articular extension into the metacarpal phalangeal joint. Multiple fracture fragments are visualized extending to the articular surface. EKG tracing normal sinus rhythm. Nonspecific T ST changes. Previous labs January 31: White count 9.1 hemoglobin 12.9 platelets 227 sodium 134 potassium 4.6 BUN 25 creatinine 0.88 Assessment plan: -Syncope from orthostatic hypotension resulting from dehydration with result of patient passing out.: Improving -Orthostatic hypotension from dehydration.: Still significant IV fluids. Midodrine -Acute kidney injury, prerenal from decreased oral intake: Better IV fluids -Acute comminuted fracture of the first digit proximal phalanx with intra-articu lar extension into the metacarpal phalangeal joint. Multiple fracture fragments are visualized extending to the articular surface.: Secondary to fall Continue dressing. Seen by Dr. Gilda Vieira -placed in spica brace. Not for surgical intervention now -Left shoulder comminuted displaced fracture of the left humeral head secondary to fall. In February 2024. PT OT. -Essential hypertension. Coreg-discontinued. Zestril. Amlodipine 5 mg nightly -Hyperlipidemia Lipitor 20 mg -Primary osteoarthritis Pain medications as needed -Depression Wellbutrin XL 150 mg Zoloft 50 mg -Chronic DVT PE Coumadin -Chronic gait dysfunction does have a walker and a cane at home but does use it seldom. At baseline with unsteady on gait. -Morbid obesity BMI 50.2 Weight loss measures -Diabetes mellitus type 2 on oral hypoglycemic Metformin. Discontinued because of GI side effects. Accu-Cheks sliding scale insulin. Currently hold off hypoglycemic. Follow Accu-Cheks . -Superficial bruising on the face secondary to fall -Gait dysfunction -Full code Midodrine added. Blood pressure medication adjusted by cardiology. Await input from community mental health social worker regarding rehab. Past Medical History Past Medical History: Asthma, Diabetes Mellitus, Deep Vein Thrombosis (DVT), Hypertension, Osteoarthritis (OA), Pulmonary Embolus (PE) Additional Past Medical History / Comment(s): chronic sinus issues and allergies, Pre-diabetes Type 2 (on pill) 2023. History of Any Multi-Drug Resistant Organisms: None Reported Past Surgical History: Orthopedic Surgery Additional Past Surgical History / Comment(s): meniscus repair in left knee Past Anesthesia/Blood Transfusion Reactions: No Reported Reaction Past Psychological History: No Psychological Hx Reported Smoking Status: Never smoker Past Alcohol Use History: None Reported Past Drug Use History: None Reported
[2024-03-07 20:26] LABS: Glucose,Whole Blood 132 mg/dL (70-110)
[2024-03-07] MEDS: amLODIPine 5 MG TAB PO SCH (20:26)
[2024-03-07] MEDS: WARFARIN 3 MG TAB PO ONE (20:32)
[2024-03-08 02:10] LABS: Glucose,Whole Blood 126 mg/dL (70-110)
[2024-03-08 05:03] LABS: INR 1.3 (<1.2)
[2024-03-08 05:41] LABS: Glucose,Whole Blood 108 mg/dL (70-110)
[2024-03-08] MEDS: ONDANSETRON 4 MG TAB PO PRN (09:56)
[2024-03-08 11:53] LABS: Glucose,Whole Blood 122 mg/dL (70-110)
--- NOTE | 2024-03-08 12:28 | P.PN ---
Subjective Progress Note Date: 03/08/24 Reason for Consult (text): Syncope History of present illness: This is a 73-year-old female with past medical history of hypertension, hyperlipidemia, history of DVT on Coumadin. Patient had a fall about 3 weeks ago fracturing her right shoulder with no plan for surgical intervention. Patient had another fall which led her into the hospital on this admission. She states she was standing up and she fell forward onto her face. Noted to have bruising to the forehead and right orbit and is complaining of pain to her right hand. She states she often feels dizzy. Patient did have orthostatic changes on presentation with supine to sitting. Blood pressure is now 115/99, heart rate in the 60s, pulse ox 94% on room air. EKG: Sinus rhythm with no acute ST changes Right hand x-ray reveals comminuted fracture of the first digit proximal phalanx CAT scan of the brain revealed no acute process. Chronic small vessel ischemic change. Scalp edema without evidence of fracture. Laboratory studies: CBC normal. INR 1.3. BUN 22 creatinine 1.15, potassium 4.2. Troponin negative x 1. TSH 2.9. Home cardiac medications: Atorvastatin 20 mg daily, Coreg 12.5 mg daily, lisinopril 2.5 mg at bedtime, warfarin 5 mg at bedtime. 03/07 Patient is seen today in follow-up on the observation unit. Telemetry is sinus rhythm. No arrhythmias. Blood pressure 137/83, heart rate 61, pulse ox 96% on room air. INR is 1.4. 03/08 Patient is expecting discharge to subacute rehab today. She is on the event monitor and plan is for her to follow-up in the office in 6 weeks. Blood pressure 161/83, heart rate 64, pulse ox 96% on room air. Physical examination: Gen: This is a morbidly obese 73-year-old female appears to be in no acute distress VS: reviewed HEENT: Head has ecchymosis to the forehead and right orbit, normocephalic. Pupils equal, round. Sclerae is anicteric. NECK: Supple. No JVD. LUNGS: Clear to auscultation. No wheezes or rhonchi. No intercostal retractions. HEART: Regular rate and rhythm. No murmur. ABDOMEN: Soft No tenderness. EXTREMITIES: No pedal edema. No calf tenderness. NEUROLOGICAL: Patient is awake, alert and oriented x3. Assessment: Syncopal episodes rule out cardiac etiology Hypertension Hyperlipidemia Recent right shoulder fracture secondary to fall Right thumb fracture secondary to fall Morbid obesity with BMI of 45 History of DVT Plan: Continue patient's home cardiac medications with the following changes decrease Coreg to 6.25 mg daily and increase lisinopril to 5 mg at bedtime Event monitor has been arranged Patient is cleared for discharge from cardiology and may follow-up with Dr. Roger in 6 weeks. Nurse practitioner note has been reviewed, I agree with documented findings and plan of care. Patient was seen and examined. Objective - Vital Signs Vital signs: Vital Signs Temp 97.7 F 03/08/24 07:00 Pulse 58 L 03/08/24 07:00 Resp 18 03/08/24 07:00 BP 161/83 03/08/24 07:00 Pulse Ox 96 03/08/24 07:00 FiO2 Intake & Output 03/07/24 03/08/24 03/08/24 18:59 06:59 18:59 Intake Total 0 Output Total 301 Balance 0 -301 Intake: Oral 0 Output: Urine 301 Other: Voiding Method Toilet Bedside Commode # Voids 1 - Labs CBC & Chem 7: 03/05/24 20:02 03/07/24 11:03 Labs: Abnormal Lab Results - Last 24 Hours (Table) 03/07/24 03/07/24 03/07/24 Range/Units 11:03 12:10 20:25 PT (10.0-12.5) sec INR (<1.2) Sodium 134 L (137-145) mmol/L BUN 19 H (7-17) mg/dL Glucose 116 H (74-99) mg/dL POC Glucose (mg/dL) 121 H 132 H (70-110) mg/dL 03/08/24 03/08/24 Range/Units 02:08 04:02 PT 14.0 H (10.0-12.5) sec INR 1.3 H (<1.2) Sodium (137-145) mmol/L BUN (7-17) mg/dL Glucose (74-99) mg/dL POC Glucose (mg/dL) 126 H (70-110) mg/dL
--- NOTE | 2024-03-08 13:48 | P.DS ---
Providers Date of admission: 03/05/24 21:11 Expected date of discharge: 03/08/24 Attending physician: Hadley Snider Consults: 03/05/24 21:10 Consult Physician Routine Consulting Provider: David Espino Consult Reason/Comments: syncope Do you want consulting provider notified?: Yes 03/06/24 11:54 Consult Physician Routine Consulting Provider: Gilda Vieira Consult Reason/Comments: Fractured thumb Do you want consulting provider notified?: Yes Primary care physician: Dipak Park [facility] Course: Chief Complaint: Passed out pleasant 73-year-old patient, follows with Dr. Park. Chronic stable medical condition include asthma, diabetes, DVT, hypertension, osteoarthritis/PE. Recently in the hospital with comminuted displaced fracture of the left humeral head. Patient was discharged to rehab on February 01. To stay with her son and [id number]. Patient has been diagnosed with diabetes and started on metformin. Had GI side effect, concerned about the same discontinue the same. Has been eating less especially no sweets. Patient also an overall increase that is decreased. Patient last week had 2 episodes of simply passing out. Patient was standing with a walker. She had passed out. No chest pain palpitation. No focal weakness. No neurological symptoms. She was found to be orthostatic in the ER. And on the dry side. No chest pain or palpitations. In the ER patient has a friend and [id number] at the bedside. With the fall she injured her right thumb March 07: Lying in bed. A bit tired. Tolerating diet. She remains to be orthostatic. Was seen by cardiology. Midodrine was added. Social work is looking into rehab. March 08: Patient accepted at rehab. Blood pressure medication change per cardiology. Will except a bit higher blood pressure to mitigate orthostatic. Discussion and discharge planning more than 35 minutes Social history: No smoking no alcohol. Really staying with her son and [id number] Physical examination: VITAL SIGNS: 97.7, 58, 64, 161 x 83, 96% room air GENERAL: Resting in bed EYES: Pupils equal. Conjunctiva marielle l. HEENT: External appearance of nose and ears normal, oral cavity grossly normal. Bruising on the nasal bridge NECK: JVD unable to assess; masses not palpable. HEART: Heart sounds distant; nonpitting edema. LUNGS: Respiratory rate normal; distant breath sounds. ABDOMEN: Soft, nontender, liver spleen not palpable, no masses palpable. PSYCH: Alert and oriented x3; mood and affect marielle l. MUSCULOSKELETAL:No Clubbing/cyanosis;muscles-grossly intact. OA. Left shoulder reviewed and range of motion. Right hand thumb and wrist in dressing support LYMPHATICS: No lymph nodes palpable in the axilla and neck. Lower extremity lymphedema INVESTIGATIONS, reviewed in the clinical context: March 07: BUN 19 creatinine 0.82 March 05, 2024: White count 8.3 hemoglobin 13.3 platelets 221 sodium 138 potassium 4.2 BUN [address] brain and face: Scalp edema. Chronic white matter changes. No fracture Right hand complete: Comminuted fracture of the first digit proximal phalanx with intra-articular extension into the metacarpal phalangeal joint. Multiple fracture fragments are visualized extending to the articular surface. EKG tracing normal sinus rhythm. Nonspecific T ST changes. Previous labs January 31: White count 9.1 hemoglobin 12.9 platelets 227 sodium 134 potassium 4.6 BUN 25 creatinine 0.88 Assessment plan: -Syncope from orthostatic hypotension resulting from dehydration with result of patient passing out.: Improving -Orthostatic hypotension from dehydration.: IV fluids. Midodrine was added -Acute kidney injury, prerenal from decreased oral intake: Better IV fluids -Acute comminuted fracture of the first digit proximal phalanx with intra- articular extension into the metacarpal phalangeal joint. Multiple fracture fragments are visualized extending to the articular surface.: Secondary to fall Continue dressing. Seen by Dr. Gilda Vieira -placed in spica brace. Not for surgical intervention now. Follow-up outpatient -Left shoulder comminuted displaced fracture of the left humeral head secondary to fall. In February 2024. PT OT. -Essential hypertension. Coreg-discontinued. Zestril. Amlodipine 5 mg nightly -Hyperlipidemia Lipitor 20 mg -Primary osteoarthritis Pain medications as needed -Depression Wellbutrin XL 150 mg Zoloft 50 mg -Chronic DVT PE Coumadin, follow INR -Chronic gait dysfunction does have a walker and a cane at home but does use it seldom. At baseline with unsteady on gait. -Morbid obesity BMI 50.2 Weight loss measures -Diabetes mellitus type 2 on oral hypoglycemic: Diet controlled Metformin-. Discontinued because of GI side effects. Accu-Cheks sliding scale insulin. Currently hold off hypoglycemic. Follow Accu-Cheks . -Superficial bruising on the face secondary to fall -Gait dysfunction -Full code Disposition: Rehab at [facility] Past Medical History Past Medical History: Asthma, Diabetes Mellitus, Deep Vein Thrombosis (DVT), Hypertension, Osteoarthritis (OA), Pulmonary Embolus (PE) Additional Past Medical History / Comment(s): chronic sinus issues and allergies, Pre-diabetes Type 2 (on pill) 2023. History of Any Multi-Drug Resistant Organisms: None Reported Past Surgical History: Orthopedic Surgery Additional Past Surgical History / Comment(s): meniscus repair in left knee Past Anesthesia/Blood Transfusion Reactions: No Reported Reaction Past Psychological History: No Psychological Hx Reported Smoking Status: Never smoker Past Alcohol Use History: None Reported Past Drug Use History: None Reported Plan - Discharge Summary Discharge Rx Participant: Yes New Discharge Prescriptions: New INSULIN ASPART (NovoLOG) [NovoLOG (formulary)] 0 unit SQ AC-TID each Midodrine [ProAmatine] 5 mg PO AC-TID tab amLODIPine [Norvasc] 5 mg PO HS tab Acetaminophen Tab [Tylenol] 650 mg PO Q4HR PRN tab PRN Reason: Fever And/ Or Pain lisinopriL [Zestril] 5 mg PO HS tab Continue Montelukast [Singulair] 10 mg PO DAILY Warfarin [Coumadin] 5 mg PO HS buPROPion XL [Wellbutrin XL] 150 mg PO DAILY Sennosides-Docusate Sodium [Senokot-S] 1 tab PO BID PRN #60 tablet PRN Reason: Constipation methocarbamoL [Robaxin-750] 750 mg PO QID PRN tab PRN Reason: Muscle Spasm Albuterol Sulfate [Albuterol Sulfate Hfa] 2 puff PO RT-QID PRN PRN Reason: Shortness Of Breath Ondansetron [Zofran] 4 mg PO Q6H PRN PRN Reason: Nausea LORazepam [Ativan] 0.5 mg PO DAILY PRN #3 tab PRN Reason: Anxiety Atorvastatin [Lipitor] 20 mg PO DAILY Omeprazole Magnesium [PriLOSEC OTC] 20 mg PO DAILY Sertraline [Zoloft] 50 mg PO DAILY Fluticasone Nasal [place] [Flonase Nasal [place]] 1 spr EA NOSTRIL BID PRN PRN Reason: Allergy Symptoms Triamcinolone 0.5% Cream [Kenalog 0.5% Cream] 1 applic TOPICAL BID Changed HYDROcodone/APAP 5-325MG [[place] 5-325] 1 tab PO Q6HR PRN #12 tab PRN Reason: Pain Discontinued Carvedilol [Coreg] 12.5 mg PO DAILY lisinopriL [Zestril] 2.5 mg PO HS Ibuprofen [Motrin Ib] 800 mg PO DAILY PRN PRN Reason: Pain Ondansetron Odt [Zofran Odt] 4 mg PO Q6H PRN PRN Reason: Nausea Discharge Medication List Montelukast [Singulair] 10 mg PO DAILY 04/03/16 [History] Atorvastatin [Lipitor] 20 mg PO DAILY 12/21/20 [History] Omeprazole Magnesium [PriLOSEC OTC] 20 mg PO DAILY 12/21/20 [History] Warfarin [Coumadin] 5 mg PO HS 12/21/20 [History] Sertraline [Zoloft] 50 mg PO DAILY 10/20/21 [History] Fluticasone Nasal [place] [Flonase Nasal [place]] 1 spr EA NOSTRIL BID PRN 02/01/24 [History] Triamcinolone 0.5% Cream [Kenalog 0.5% Cream] 1 applic TOPICAL BID 02/01/24 [History] buPROPion XL [Wellbutrin XL] 150 mg PO DAILY 02/01/24 [History] Sennosides-Docusate Sodium [Senokot-S] 1 tab PO BID PRN #60 tablet 02/02/24 [Rx] methocarbamoL [Robaxin-750] 750 mg PO QID PRN tab 02/02/24 [Rx] Albuterol Sulfate [Albuterol Sulfate Hfa] 2 puff PO RT-QID PRN 03/06/24 [History] Ondansetron [Zofran] 4 mg PO Q6H PRN 03/06/24 [History] Acetaminophen Tab [Tylenol] 650 mg PO Q4HR PRN tab 03/08/24 [Rx] HYDROcodone/APAP 5-325MG [[place] 5-325] 1 tab PO Q6HR PRN #12 tab 03/08/24 [Rx] INSULIN ASPART (NovoLOG) [NovoLOG (formulary)] 0 unit SQ AC-TID each 03/08/24 [Rx] LORazepam [Ativan] 0.5 mg PO DAILY PRN #3 tab 03/08/24 [Rx] Midodrine [ProAmatine] 5 mg PO AC-TID tab 03/08/24 [Rx] amLODIPine [Norvasc] 5 mg PO HS tab 03/08/24 [Rx] lisinopriL [Zestril] 5 mg PO HS tab 03/08/24 [Rx] Follow up Appointment(s)/Referral(s): Carlie Roger MD [STAFF PHYSICIAN] - 6 Weeks (Office will call patient with appointment ) Gilda Vieira DO [Doctor of Osteopathic Medicine] - 2 Weeks Dipak Park MD [Primary Care Provider] - 1-2 days
[2024-03-08 14:29] VITALS: BP 107/71; PULSE 71; RESP 22; TEMP 97.3
[2024-03-08 17:44] LABS: Glucose,Whole Blood 134 mg/dL (70-110)
[2024-03-08] MEDS ORDERED: WARFARIN 3 MG TAB PO ONE (21:00)
== END 2024-03-08 18:23 ==
LOC: EC 18:37 → INTOOBSV 21:11 → 6NMEDSUR 21:11
PROVIDERS: ADMIT Hospitalist; ATTEND Hospitalist
DX: I95.1 Orthostatic hypotension (principal); S62.511A Displaced fracture of proximal phalanx of right thumb, initial encounter for closed fracture; S42.292A Other displaced fracture of upper end of left humerus, initial encounter for closed fracture; S00.83XA Contusion of other part of head, initial encounter; W19.XXXA Unspecified fall, initial encounter; E86.0 Dehydration; N17.9 Acute kidney failure, unspecified; M19.91 Primary osteoarthritis, unspecified site; F32.A Depression, unspecified; I10 Essential (primary) hypertension; J45.909 Unspecified asthma, uncomplicated; E11.9 Type 2 diabetes mellitus without complications; E78.5 Hyperlipidemia, unspecified; R26.9 Unspecified abnormalities of gait and mobility; E66.01 Morbid (severe) obesity due to excess calories; Z68.43 Body mass index [BMI] 50.0-59.9, adult; Z86.711 Personal history of pulmonary embolism; Z86.718 Personal history of other venous thrombosis and embolism; Z79.01 Long term (current) use of anticoagulants; Z79.899 Other long term (current) drug therapy; Z79.84 Long term (current) use of oral hypoglycemic drugs; Z91.040 Latex allergy status
CPT/HCPCS: 36415; 70450; 70486; 80048; 80053; 83036; 84443; 84484; 85025; 85610; 85730; 93005; 93270; 93306; 96360; 96361; 99285

== ENCOUNTER 2024-04-24 23:12 | Inpatient (IN) | payer MEDICARE ==
[2024-04-24] MEDS: MORPHINE SULFATE 4 MG/ML SYRINGE IV STA (23:27)
[2024-04-24] MEDS: SODIUM CHLORIDE 0.9% 500 ML 500 ML IV STA (23:28)
--- NOTE | 2024-04-24 23:44 | ED ---
General Adult HPI - General Chief complaint: Fall Stated complaint: Fall Time Seen by Provider: 04/24/24 23:14 Source: patient, EMS, RN notes reviewed, old records reviewed Mode of arrival: EMS Limitations: no limitations - History of Present Illness Initial comments: Patient is a 73-year-old female with past medical history remarkable for asthma, diabetes, DVTs on Xarelto who presents emergency department after a fall. Fall occurred at approximately 5 AM this morning. Was not found until 5 PM by family. Presents at nearly 11:30 PM for evaluation. Patient was on the ground for that entire time was unable to stand up on her own. She is obese. Is dealing with a left shoulder fracture that is being medically managed without surgery. She lives at home by herself. She states she has been doing with what sounds like orthostatic hypotension as she stands and her blood pressure drops. States she attributes this to the fall. Does not think she lost consciousness but is uncertain. Currently is complaining of bilateral knee pain from trying to stand up and possibly to fall. Is also complaining of some neck discomfort and back pain. Denies any chest pain other than over the right ribs which she suspect is from the fall as it is tenderness to palpation. Denies any pelvis pain. No other acute complaints. Presents for further evaluation at this time. - Related Data Home Medications Medication Instructions Recorded Confirmed Montelukast [Singulair] 10 mg PO DAILY 04/03/16 03/06/24 Atorvastatin [Lipitor] 20 mg PO DAILY 12/21/20 03/06/24 Omeprazole Magnesium [PriLOSEC OTC] 20 mg PO DAILY 12/21/20 03/06/24 Warfarin [Coumadin] 5 mg PO HS 12/21/20 03/06/24 Sertraline [Zoloft] 50 mg PO DAILY 10/20/21 03/06/24 Fluticasone Nasal [place] [Flonase 1 spr EA NOSTRIL BID PRN 02/01/24 03/06/24 Nasal [place]] Triamcinolone 0.5% Cream [Kenalog 1 applic TOPICAL BID 02/01/24 03/06/24 0.5% Cream] buPROPion XL [Wellbutrin XL] 150 mg PO DAILY 02/01/24 03/06/24 Albuterol Sulfate [Albuterol 2 puff PO RT-QID PRN 03/06/24 03/06/24 Sulfate Hfa] Ondansetron [Zofran] 4 mg PO Q6H PRN 03/06/24 03/06/24 Previous Rx's Medication Instructions Recorded Sennosides-Docusate Sodium 1 tab PO BID PRN #60 tablet 02/02/24 [Senokot-S] methocarbamoL [Robaxin-750] 750 mg PO QID PRN tab 02/02/24 Acetaminophen Tab [Tylenol] 650 mg PO Q4HR PRN tab 03/08/24 HYDROcodone/APAP 5-325MG [Ethel 1 tab PO Q6HR PRN #12 tab 03/08/24 5-325] INSULIN ASPART (NovoLOG) [NovoLOG 0 unit SQ AC-TID each 03/08/24 (formulary)] LORazepam [Ativan] 0.5 mg PO DAILY PRN #3 tab 03/08/24 Midodrine [ProAmatine] 5 mg PO AC-TID tab 03/08/24 amLODIPine [Norvasc] 5 mg PO HS tab 03/08/24 lisinopriL [Zestril] 5 mg PO HS tab 03/08/24 Allergies Allergy/AdvReac Type Severity Reaction Status Date / Time latex Allergy Rash/Hives Verified 03/06/24 07:43 metformin AdvReac Nausea Verified 03/06/24 07:43 Review of Systems ROS Statement: Those systems with pertinent positive or pertinent negative responses have been documented in the HPI. Review of Systems: CONST: Denies fever EYES: Denies blurry vision ENT: Denies nasal congestion C/V: Denies Chest pain RESP: Denies shortness of breath GI: Denies abdominal pain : Denies dysuria SKIN: Denies rash. MSK: Endorses right rib pain, low back pain, neck pain, bilateral knee pain NEURO: Denies headache ROS Other: All systems not noted in ROS Statement are negative. Past Medical History Past Medical History: Asthma, Diabetes Mellitus, Deep Vein Thrombosis (DVT), Hypertension, Osteoarthritis (OA), Pulmonary Embolus (PE) Additional Past Medical History / Comment(s): chronic sinus issues and al lergies, Pre-diabetes Type 2 (on pill) 2023. History of Any Multi-Drug Resistant Organisms: None Reported Past Surgical History: Orthopedic Surgery Additional Past Surgical History / Comment(s): meniscus repair in left knee Past Anesthesia/Blood Transfusion Reactions: No Reported Reaction Past Psychological History: No Psychological Hx Reported Smoking Status: Never smoker Past Alcohol Use History: None Reported Past Drug Use History: None Reported General Exam - General Exam Comments Initial Comments: General: Appears in no acute distress. Patient is obese. HEAD: Normal with no signs of head trauma. Gilmore sign. Negative raccoon eyes. EYES: PERRLA, EOMI, conjunctiva normal, no discharge. Are 3 mm and equal b ilaterally. ENT: Hearing grossly intact, normal oropharynx. RESPIRATORY: Clear breath sounds bilaterally. No wheezes, rales, or rhonchi. C/V: Regular rate and rhythm. S1 and S2 auscultated, no edema, peripheral pulses 2+ and intact throughout ABD: Abd is soft, nontender, nondistended EXT: No obvious deformity. Reduced range of motion of left shoulder secondary to known fracture from multiple weeks ago. No new pain. Tenderness to palpation of the paraspinal muscles of the cervical as well as lumbar spine. No obvious midline step-offs or deformities. Pelvis is stable. Tenderness palpation over the anterior bilateral knees however normal range of motion no obvious deformities. Patient does have tenderness palpation over the anterior right ribs as well that is worse with movements as well as palpation. SKIN: No rashes or lesions observed on exposed skin. NEURO: Alert and oriented x 4. Cranial nerves II-XII intact. No focal sensory or strength deficits. GCS of 15. Limitations: no limitations Course Vital Signs 04/24/24 04/25/24 23:12 04:50 Temperature 98.4 F Pulse Rate 78 80 Respiratory 18 18 Rate Blood Pressure 135/83 O2 Sat by Pulse 98 Oximetry Medical Decision Making - Medical Decision Making Was pt. sent in by a medical professional or institution (, PA, AQUACULTURE FARMER, urgent care, hospital, or residential...) When possible be specific @ -No Did you speak to anyone other than the patient for history (EMS, parent, family, police, friend...)? What history was obtained from this source @ -No Did you review nursing and triage notes (agree or disagree)? Why? @ -I reviewed and agree with nursing and triage notes Were old charts reviewed (outside hosp., previous admission, EMS record, old EKG, old radiological studies, urgent care reports/EKG's, residential records)? Report findings @ -Medications reviewed which showed patient is on blood thinner. Differential Diagnosis (chest pain, altered mental status, abdominal pain women, abdominal pain men, vaginal bleeding, weakness, fever, dyspnea, syncope, headache, dizziness, GI bleed, back pain, seizure, CVA, palpatations, mental health, musculoskeletal)? @ -Differential Musculoskeletal Muscular strain, contusion, ligament sprain, fracture, arthritis, septic arthritis, bursitis, cellulitis, muscle spasm, nerve compression, DVT, arterial occlusion, herpes zoster, electrolyte abnormality, tumor.... This is not meant to be in all inclusive list EKG interpreted by me (3pts min.). @ -As above X-rays interpreted by me (1pt min.). @ -Chest x-ray, pelvis x-ray, knee x-ray negative for any obvious traumatic injury or process. CT interpreted by me (1pt min.). @ -CT brain, C-spine, thoracic spine, lumbar spine negative for any obvious t raumatic injury. U/S interpreted by me (1pt. min.). @ -None done What testing was considered but not performed or refused? (CT, X-rays, U/S, labs)? Why? @ -None What meds were considered but not given or refused? Why? @ -None Did you discuss the management of the patient with other professionals (professionals i.e. , PA, AQUACULTURE FARMER, lab, RT, psych nurse, social work coordinator, shortage worker, teacher, security control room officer, pillowcase maker)? Give summary @ - I spoke with JOVANNY Edmond of [facility] who is covering Dr. Snider who accepted the admission. Was smoking cessation discussed for >3mins.? @ -No Was critical care preformed (if so, how long)? @ -No Were there social determinants of health that impacted care today? How? (Homelessness, low income, unemployed, alcoholism, drug addiction, transportation, low edu. Level, literacy, decrease access to med. care, detention, rehab)? @ -No Was there de-escalation of care discussed even if they declined (Discuss DNR or withdrawal of care, Hospice)? DNR status @ -No What co-morbidities impacted this encounter? (DM, HTN, Smoking, COPD, CAD, Cancer, CVA, ARF, Chemo, Hep., AIDS, mental health diagnosis, sleep apnea, morbid obesity)? @ -None Was patient admitted / discharged? Hospital course, mention meds given and route, prescriptions, significant lab abnormalities, going to OR and other pertinent info. @ -Based on the patient's presentation and physical exam, presents emergency department complaining of a fall. Was on the ground for 12 hours at home. Lives at home alone. Is on blood thinners. Does not meet trauma activation criteria. We will obtain CT imaging of the brain, spine. We also obtain chest, pelvis x-rays as well as knee x-rays. Patient in agreement this plan. We will obtain general laboratory studies as well. She will be symptomatically treated with morphine, IV fluids. Patient was in agreement this plan. EKG shows no signs of acute ischemia.Patient's imaging returned negative for any obvious acute injury or process. Patient's laboratory studies returned remarkable for rhabdomyolysis with a creatinine kinase over 4000. Renal functi on appears within acceptable limits at this time. I discussed results with the patient. She will be admitted. Patient given additional 1 L fluid bolus and placed on maintenance fluids. She was in agreement this plan. I spoke with JOVANNY Edmond of [facility] who is covering Dr. Snider who accepted the ad mission. I consulted nephrology for the rhabdomyolysis. Undiagnosed new problem with uncertain prognosis? @ -No Drug Therapy requiring intensive monitoring for toxicity (Heparin, Nitro, Insulin, Cardizem)? @ -No Were any procedures done? @ -No Diagnosis/symptom? @ -Fall, rhabdomyolysis, Contusion of rib Acute, or Chronic, or Acute on Chronic? @ -Acute Uncomplicated (without systemic symptoms) or Complicated (systemic symptoms)? @ -Complicated Side effects of treatment? @ -None Exacerbation, Progression, or Severe Exacerbation] @ -No Poses a threat to life or bodily function? @ -Potentially, yes - Lab Data Result diagrams: 04/25/24 00:57 04/25/24 00:57 Lab Results 04/25/24 04/25/24 04/25/24 Range/Units 00:27 00:57 00:57 WBC 9.2 (3.8-10.6) k/uL RBC 3.76 L (3.80-5.40) m/uL Hgb 11.9 (11.4-16.0) gm/dL Hct 35.3 (34.0-46.0) % MCV 93.9 (80.0-100.0) fL MCH 31.7 (25.0-35.0) pg MCHC 33.7 (31.0-37.0) g/dL RDW 14.6 (11.5-15.5) % Plt Count 177 (150-450) k/uL MPV 7.9 Neutrophils % 83 % Lymphocytes % 7 % Monocytes % 8 % Eosinophils % 0 % Basophils % 0 % Neutrophils # 7.7 (1.3-7.7) k/uL Lymphocytes # 0.7 L (1.0-4.8) k/uL Monocytes # 0.7 (0-1.0) k/uL Eosinophils # 0.0 (0-0.7) k/uL Basophils # 0.0 (0-0.2) k/uL PT 11.8 (10.0-12.5) sec INR 1.1 (<1.2) APTT 22.7 (22.0-30.0) sec Sodium (137-145) mmol/L Potassium (3.5-5.1) mmol/L Chloride (98-107) mmol/L Carbon Dioxide (22-30) mmol/L Anion Gap mmol/L BUN (7-17) mg/dL Creatinine (0.52-1.04) mg/dL Est GFR (CKD-EPI)AfAm (>60 ml/min/1.73 sqM) Est GFR (CKD-EPI)NonAf (>60 ml/min/1.73 sqM) Glucose (74-99) mg/dL Plasma Lactic Acid Jorge (0.7-2.0) mmol/L Calcium (8.4-10.2) mg/dL Magnesium (1.6-2.3) mg/dL Total Bilirubin (0.2-1.3) mg/dL AST (14-36) U/L ALT (4-34) U/L Alkaline Phosphatase (38-126) U/L Creatine Kinase (30-135) U/L Total Protein (6.3-8.2) g/dL Albumin (3.5-5.0) g/dL Influenza Type A (PCR) Not Detected (Not Detectd) Influenza Type B (PCR) Not Detected (Not Detectd) RSV (PCR) Not Detected (Not Detectd) SARS-CoV-2 (PCR) Not Detected (Not Detectd) Blood Type Blood Type Recheck Bld Type Recheck Status Antibody Screen Spec Expiration Date 04/25/24 04/25/24 04/25/24 Range/Units 00:57 00:57 00:57 WBC (3.8-10.6) k/uL RBC (3.80-5.40) m/uL Hgb (11.4-16.0) gm/dL Hct (34.0-46.0) % MCV (80.0-100.0) fL MCH (25.0-35.0) pg MCHC (31.0-37.0) g/dL RDW (11.5-15.5) % Plt Count (150-450) k/uL MPV Neutrophils % % Lymphocytes % % Monocytes % % Eosinophils % % Basophils % % Neutrophils # (1.3-7.7) k/uL Lymphocytes # (1.0-4.8) k/uL Monocytes # (0-1.0) k/uL Eosinophils # (0-0.7) k/uL Basophils # (0-0.2) k/uL PT (10.0-12.5) sec INR (<1.2) APTT (22.0-30.0) sec Sodium 132 L (137-145) mmol/L Potassium 3.3 L (3.5-5.1) mmol/L Chloride 106 (98-107) mmol/L Carbon Dioxide 22 (22-30) mmol/L Anion Gap 4 mmol/L BUN 18 H (7-17) mg/dL Creatinine 0.84 (0.52-1.04) mg/dL Est GFR (CKD-EPI)AfAm 79 (>60 ml/min/1.73 sqM) Est GFR (CKD-EPI)NonAf 69 (>60 ml/min/1.73 sqM) Glucose 109 H (74-99) mg/dL Plasma Lactic Acid Jorge 1.3 (0.7-2.0) mmol/L Calcium 8.7 (8.4-10.2) mg/dL Magnesium 1.8 (1.6-2.3) mg/dL Total Bilirubin 1.4 H (0.2-1.3) mg/dL AST 124 H (14-36) U/L ALT 43 H (4-34) U/L Alkaline Phosphatase 113 (38-126) U/L Creatine Kinase 4296 H* (30-135) U/L Total Protein 5.6 L (6.3-8.2) g/dL Albumin 3.1 L (3.5-5.0) g/dL Influenza Type A (PCR) (Not Detectd) Influenza Type B (PCR) (Not Detectd) RSV (PCR) (Not Detectd) SARS-CoV-2 (PCR) (Not Detectd) Blood Type A Positive Blood Type Recheck No Previous Record Bld Type Recheck Status CABO Indicated Antibody Screen NEGATIVE Spec Expiration Date 04/28/20242356 - EKG Data -: EKG Interpreted by Me EKG Comments: 12-lead Electrocardiogram Interpretation Note EKG was reviewed and interpreted by myself. 12-lead ECG performed at 2321 is interpreted by me as revealing normal sinus rhythm at a rate of 77 beats per minute. Shepherd is normal. NH interval is 156 ms, QRS duration is 97 ms, QTc is 360 ms.. There were no ST or T wave abnormalities to suggest myocardial ischemia or injury. R wave progression across the precordium was delayed. By my interpretation this EKG is non-diagnostic for acute ischemia. Disposition Clinical Impression: Fall, Rhabdomyolysis, Rib contusion Disposition: ADMITTED IP TO THIS HOSP Condition: Stable Time of Disposition: 03:01
--- NOTE | 2024-04-25 | CT ---
EXAM: CT Head Without Intravenous Contrast CLINICAL HISTORY: Weakness TECHNIQUE: Axial computed tomography images of the head/brain without intravenous contrast. CTDI is 49.1 mGy and DLP is 1209 mGy-cm. This CT exam was performed using one or more of the following dose reduction techniques: automated exposure control, adjustment of the mA and/or kV according to patient size, and/or use of iterative reconstruction technique. COMPARISON: 03-05-2024. FINDINGS: Brain: Age-appropriate generalized atrophy. No acute stroke. Mild supratentorial periventricular and subcortical white matter changes with focal change in the subcortical right frontal lobe, unchanged. No acute hemorrhage or abnormal extra-axial fluid collection. Ventricles: No hydrocephalus. No midline shift. Bones/joints: Unremarkable. No acute fracture. Soft tissues: Unremarkable. Sinuses: Unremarkable as visualized. No acute sinusitis. IMPRESSION: No acute stroke or hemorrhage. Non-specific white matter changes, most commonly seen with small vessel disease.
--- NOTE | 2024-04-25 00:40 | CT ---
EXAM: CT Cervical Spine Without Intravenous Contrast CLINICAL HISTORY: Fall, pain TECHNIQUE: Axial computed tomography images of the cervical spine without intravenous contrast. CTDI is 8.6 mGy and DLP is 621 mGy-cm. This CT exam was performed using one or more of the following dose reduction techniques: automated exposure control, adjustment of the mA and/or kV according to patient size, and/or use of iterative reconstruction technique. COMPARISON: No relevant prior studies available. FINDINGS: Vertebrae: No acute fracture. Maintenance of height of the vertebral bodies. No subluxation. Discs/spinal canal/neural foramina: Diffuse facet degenerative changes. Minimal disc degenerative changes. Soft tissues: Prevertebral soft tissues are unremarkable. IMPRESSION: No acute post-traumatic abnormality. EXAM: CT Thoracic Spine Without Intravenous Contrast CLINICAL HISTORY: Fall, pain TECHNIQUE: Axial computed tomography images of the thoracic spine without intravenous contrast. CTDI is 8.68 mGy and DLP is 621 mGy-cm. This CT exam was performed using one or more of the following dose reduction techniques: automated exposure control, adjustment of the mA and/or kV according to patient size, and/or use of iterative reconstruction technique. COMPARISON: No relevant prior studies available. FINDINGS: Vertebrae: No acute fracture. Maintenance of height of the vertebral bodies. No spondylolisthesis. Bone mineralization within normal limits. Discs/spinal canal/neural foramina: Mild diffuse endplate hypertrophic change with bridging anterior and lateral osteophytes. Soft tissues: Unremarkable. IMPRESSION: No acute post-traumatic abnormality. EXAM: CT Lumbar Spine Without Intravenous Contrast CLINICAL HISTORY: Fall, pain TECHNIQUE: Axial computed tomography images of the lumbar spine without intravenous contrast. CTDI is 8.6 mGy and DLP is 621 mGy-cm. This CT exam was performed using one or more of the following dose reduction techniques: automated exposure control, adjustment of the mA and/or kV according to patient size, and/or use of iterative reconstruction technique. COMPARISON: No relevant prior studies available. FINDINGS: Vertebrae: No definite acute fracture. Age-indeterminate mild loss of height of the L3 vertebral body without acute fracture line identified or posterior retropulsion. Maintenance of height of the remainder of the vertebral bodies. No spondylolisthesis. Bone mineralization within normal limits. Discs/spinal canal/neural foramina: Mild disk degenerative changes greatest at L3-4, L4-5 and L5-S1 Soft tissues: No paraspinal collection. Cholelithiasis. Right renal cyst. Atherosclerotic vascular calcifications. IMPRESSION: Age-indeterminate mild loss of height of the L3 vertebral body without acute fracture line identified or posterior retropulsion. Lower lumbar degenerative changes. Cholelithiasis.
--- NOTE | 2024-04-25 00:54 | XR ---
EXAM: XR Bilateral Knees, 3 Views CLINICAL HISTORY: Fall, pain TECHNIQUE: Three views of the bilateral knees. COMPARISON: X-ray left knee 01/31/2024. FINDINGS: Bones/joints: No acute fracture. No dislocation. Redemonstrated bilateral medial greater than lateral and patellofemoral joint space narrowing with hypertrophic changes. Bones are osteopenic. Soft tissues: Unremarkable. IMPRESSION: No acute post-traumatic abnormality. Tricompartment degenerative changes greatest in the medial joint spaces.
--- NOTE | 2024-04-25 00:56 | XR ---
EXAM: XR Pelvis, 1 or 2 Views CLINICAL HISTORY: Fall, pain TECHNIQUE: Frontal view of the pelvis. COMPARISON: No relevant prior studies available. FINDINGS: Bones/joints: Degenerative changes lower lumbar spine. No acute fracture. No dislocation. Soft tissues: Unremarkable. IMPRESSION: No acute post-traumatic abnormality.
--- NOTE | 2024-04-25 01:14 | XR ---
EXAM: XR Chest, 1 View CLINICAL HISTORY: Weakness TECHNIQUE: Frontal view of the chest. COMPARISON: 02/01/2024. FINDINGS: Patient is slightly rotated to the right. Heart is mildly enlarged. Pulmonary vessels are top normal caliber. No focal pneumonia. No pleural effusion or pneumothorax. Bones are unchanged. IMPRESSION: Mild cardiomegaly. Pulmonary vessels top normal caliber.
[2024-04-25] MEDS: METOCLOPRAMIDE 5 MG/ML 2 ML VIAL IVP STA (01:15)
[2024-04-25 01:29] LABS: Basophils % (A) 0 %; Eosinophils % (A) 0 %; HCT 35.3 % (34.0-46.0); HGB 11.9 gm/dL (11.4-16.0); Lymphocytes # (A) 0.7 k/uL (1.0-4.8); Lymphocytes % (A) 7 %; MCH 31.7 pg (25.0-35.0); MCHC 33.7 g/dL (31.0-37.0); MCV 93.9 fL (80.0-100.0); Mean Platelet Volume 7.9; Monocytes # (A) 0.7 k/uL (0-1.0); Monocytes % (A) 8 %; Neutrophils # (A) 7.7 k/uL (1.3-7.7); Neutrophils % (A) 83 %; Platelet Count 177 k/uL (150-450); RBC 3.76 m/uL (3.80-5.40); RDW 14.6 % (11.5-15.5); WBC 9.2 k/uL (3.8-10.6)
[2024-04-25 01:40] LABS: INR 1.1 (<1.2); Partial Thromboplastin Time 22.7 sec (22.0-30.0); Prothrombin Time 11.8 sec (10.0-12.5)
[2024-04-25 02:02] LABS: ALT 43 U/L (4-34); AST 124 U/L (14-36); African American GFR (CKD) 79 (>60 ml/min/1.73 sqM); Albumin 3.1 g/dL (3.5-5.0); Alkaline Phosphatase 113 U/L (38-126); Anion Gap 4 mmol/L; Blood Urea Nitrogen 18 mg/dL (7-17); Calcium 8.7 mg/dL (8.4-10.2); Carbon Dioxide 22 mmol/L (22-30); Chloride 106 mmol/L (98-107); Glucose 109 mg/dL (74-99); Magnesium 1.8 mg/dL (1.6-2.3); Non-African American GFR(CKD) 69 (>60 ml/min/1.73 sqM); Potassium 3.3 mmol/L (3.5-5.1); Sodium 132 mmol/L (137-145); Total Bilirubin 1.4 mg/dL (0.2-1.3); Total Protein 5.6 g/dL (6.3-8.2)
[2024-04-25 03:18] LABS: Creatine Kinase 4296 U/L (30-135)
[2024-04-25] MEDS ORDERED: ONDANSETRON 4 MG/2 ML VIAL IVP PRN (03:18)
[2024-04-25] MEDS ORDERED: NALOXONE 0.4 MG/ML 1 ML VIAL IV PRN (03:18)
[2024-04-25] MEDS ORDERED: ACETAMINOPHEN TAB 325 MG TAB PO PRN (03:18)
[2024-04-25] MEDS: SODIUM CHLORIDE 0.9% 1,000 ML IV STA ×2 (03:30→04:30)
[2024-04-25 08:09] LABS: African American GFR (CKD) 90 (>60 ml/min/1.73 sqM); Anion Gap 8 mmol/L; Blood Urea Nitrogen 15 mg/dL (7-17); Calcium 8.6 mg/dL (8.4-10.2); Carbon Dioxide 23 mmol/L (22-30); Chloride 106 mmol/L (98-107); Glucose 101 mg/dL (74-99); Magnesium 1.8 mg/dL (1.6-2.3); Non-African American GFR(CKD) 78 (>60 ml/min/1.73 sqM); Potassium 3.2 mmol/L (3.5-5.1); Sodium 137 mmol/L (137-145)
[2024-04-25 08:21] LABS: Creatine Kinase 2708 U/L (30-135)
[2024-04-25] MEDS ORDERED: DEXTROSE 50% SYRINGE 50 ML IVP PRN ×2 (09:50)
[2024-04-25] MEDS: POTASSIUM CHLORIDE ER 20 MEQ TAB.ER PO STA (10:31)
[2024-04-25] MEDS: SODIUM CHLORIDE 0.9% 1,000 ML IV SCH (11:45)
--- NOTE | 2024-04-25 11:52 | P.NPCON ---
History of Present Illness - Reason for Consult acute renal failure - History of Present Illness Reason for consultation: Rhabdomyolysis History of present illness: Patient is a 73-year-old female seen in renal consultation for rhabdomyolysis. Patient was seen and examined in emergency room. Patient came to the hospital after she sustained a fall at home. Patient states she has been following frequently. She states she fell a month ago and fractured her shoulder and then again and broke her thumb. Patient states she again fell yesterday and did lose consciousness. Patient says she was down for about 8 hours. CK level was elevated at 4296 on admission and is 2708 today. She is receiving IV fluids. Renal function is at baseline with creatinine 0.76 today. Patient states her oral intake has been poor the last few days. She has been having dry heaves. She does have history of diabetes. Denies history of coronary artery disease. Does admit to taking Motrin as needed. Patient states she takes it about 1-2 times a week. She was on lisinopril outpatient which is currently held. He modynamically stable. No gross hematuria. Vital signs are stable. General: No acute distress. HEENT: Head exam is unremarkable. LUNGS: No audible rhonchi or wheezes. HEART: Rate and Rhythm are regular. ABDOMEN: Nontender. EXTREMITITES: No edema. Past Medical History Past Medical History: Asthma, Diabetes Mellitus, Deep Vein Thrombosis (DVT), Hypertension, Osteoarthritis (OA), Pulmonary Embolus (PE) Additional Past Medical History / Comment(s): chronic sinus issues and allergies, Pre-diabetes Type 2 (on pill) 2023. History of Any Multi-Drug Resistant Organisms: None Reported Past Surgical History: Orthopedic Surgery Additional Past Surgical History / Comment(s): meniscus repair in left knee Past Anesthesia/Blood Transfusion Reactions: No Reported Reaction Past Psychological History: No Psychological Hx Reported Smoking Status: Never smoker Past Alcohol Use History: None Reported Past Drug Use History: None Reported Medications and Allergies Home Medications Medication Instructions Recorded Confirmed Type Montelukast [Singulair] 10 mg PO DAILY 04/03/16 04/25/24 History Atorvastatin [Lipitor] 20 mg PO DAILY 12/21/20 04/25/24 History Omeprazole Magnesium [PriLOSEC OTC] 20 mg PO DAILY 12/21/20 04/25/24 History Sertraline [Zoloft] 50 mg PO DAILY 10/20/21 04/25/24 History Fluticasone Nasal [place] [Flonase 1 spr EA NOSTRIL BID PRN 02/01/24 04/25/24 History Nasal [place]] Triamcinolone 0.5% Cream [Kenalog 1 applic TOPICAL BID 02/01/24 04/25/24 History 0.5% Cream] buPROPion XL [Wellbutrin XL] 150 mg PO DAILY 02/01/24 04/25/24 History Sennosides-Docusate Sodium 1 tab PO BID PRN #60 tablet 02/02/24 04/25/24 Rx [Senokot-S] methocarbamoL [Robaxin-750] 750 mg PO QID PRN tab 02/02/24 04/25/24 Rx Albuterol Sulfate [Albuterol 2 puff PO RT-QID PRN 03/06/24 04/25/24 History Sulfate Hfa] Ondansetron [Zofran] 4 mg PO Q6H PRN 03/06/24 04/25/24 History Acetaminophen Tab [Tylenol] 650 mg PO Q4HR PRN tab 03/08/24 04/25/24 Rx HYDROcodone/APAP 5-325MG [[place] 1 tab PO Q6HR PRN #12 tab 03/08/24 04/25/24 Rx 5-325] LORazepam [Ativan] 0.5 mg PO DAILY PRN #3 tab 03/08/24 04/25/24 Rx Midodrine [ProAmatine] 5 mg PO AC-TID tab 03/08/24 04/25/24 Rx amLODIPine [Norvasc] 5 mg PO HS tab 03/08/24 04/25/24 Rx lisinopriL [Zestril] 5 mg PO HS tab 03/08/24 04/25/24 Rx Empagliflozin [Jardiance] 10 mg PO DAILY 04/25/24 04/25/24 History INSULIN ASPART (NovoLOG) [NovoLOG See Protocol SQ AC-TID PRN 04/25/24 04/25/24 History (formulary)] Rivaroxaban [Xarelto] 10 mg PO DAILY 04/25/24 04/25/24 History Allergies Allergy/AdvReac Type Severity Reaction Status Date / Time latex Allergy Rash/Hives Verified 04/25/24 10:24 metformin AdvReac Nausea Verified 04/25/24 10:24 Physical Exam Vitals: Vital Signs Temp Pulse Resp BP Pulse Ox 04/25/24 10:39 67 16 137/69 98 04/25/24 09:00 64 16 137/69 98 04/25/24 05:00 77 15 141/68 97 04/25/24 04:50 80 18 04/24/24 23:12 98.4 F 78 18 135/83 98 Intake and Output 04/24/24 04/25/24 04/25/24 22:59 06:59 14:59 Other: # Voids 1 Weight 127.006 kg Results - Lab Results Most recent lab results Calcium 8.6 mg/dL (8.4-10.2) 04/25/24 06:56 Magnesium 1.8 mg/dL (1.6-2.3) 04/25/24 06:56 04/25/24 00:57 04/25/24 06:56 Assessment and Plan Plan: Assessment: 1. Rhabdomyolysis secondary to fall and immobility. CK level 40-96 on admission and is 2708 today. GFR at baseline. 2. Hypokalemia from poor intake. 3. Diabetes mellitus. 4. Benign hypertension. Stable. 5. Multiple falls and debility. No acute fractures noted. Plan: Maintain IV fluids. Repeat CK level in the morning. Avoid nephrotoxins. Replace potassium. Check UA. Thank you for the consultation. I will continue to follow the patient with you during her hospital stay.
[2024-04-25 12:06] LABS: Appearance,Urine Cloudy (Clear); Bacteria,Urine Many /hpf; Bilirubin,Urine Negative (Negative); Blood,Urine Large (Negative); Color,Urine Yellow; Glucose,Urine (UA) Negative (Negative); Ketones,Urine Negative (Negative); Leukocyte Esterase,Urine Large (Negative); Mucus,Urine Many /hpf; Nitrite,Urine Negative (Negative); PH, Urine 5.5 (5.0-8.0); Protein,Urine 1+ (Negative); RBC,Urine 9 /hpf (0-5); Specific Gravity,Urine 1.018 (1.001-1.035); Squamous Epithelial Cell,Urine 3 /hpf (0-4); Urobilinogen,Urine <2.0 mg/dL (<2.0); WBC,Urine 47 /hpf (0-5)
[2024-04-25 12:29] LABS: Glucose,Whole Blood 101 mg/dL (70-110)
[2024-04-25] MEDS: INSULIN ASPART (NovoLOG) 100 UNIT/ML VIAL SQ SCH (12:30)
[2024-04-25] MEDS: HEPARIN SODIUM,PORCINE 5,000 UNIT/ML 1 ML VIAL SQ SCH (16:09)
[2024-04-25 17:34] LABS: Glucose,Whole Blood 95 mg/dL (70-110)
[2024-04-25 21:43] LABS: Glucose,Whole Blood 92 mg/dL (70-110)
[2024-04-25] MEDS ORDERED: SENNOSIDES-DOCUSATE SODIUM 1 EACH TAB PO PRN (22:33)
--- NOTE | 2024-04-25 22:56 | P.HPIM ---
History of Present Illness H&P Date: 04/25/24 Chief Complaint: Syncopal episode Patient is a 73-year-old female with a past medical history of hypertension, hyperlipidemia, pre-diabetes, recent right shoulder fracture secondary to fall, right thumb fracture due to fall and recent admission due to multiple syncopal episodes placed on registered nurse cardiac telemetry, orthostatic hypotension, History of DVT on Xarelto presents to ER status post fall at home. Patient has been having multiple falls/syncopal episodes recently and was seen by cardiology during recent admission. Patient states that she did not lose her consciousness. Not sure how long. Patient was found to be orthostatic hypotensive and was started on midodrine during previous admission.. 2D echocardiogram showed normal EF and no significant valve abnormalities. Patient had a registered nurse cardiac telemetry placed. Otherwise patient denied any complaints of headache. No fever no chills. No cough or sputum production. No complaints of abdominal pain. Denied any complaints of dysuria or hematuria. Patient is also complaining of left upper chest pain which is reproducible. On admission sodium 133 potassium 3.3, BUN 18 and creatinine 0.84 and blood sugar 109 CPK level was 4296 and repeat was 2708 and albumin 3.1. Urinalysis showed cloudy with large blood nitrite negative large leukocyte esterase with elevated RBCs and WBCs 47. CT head showed no acute stroke or hemorrhage. Nonspecific white matter changes, most commonly seen with small vessel disease. EKG showed sinus rhythm. CT cervical spine and thoracic spine and lumbar spine showed no acute osseous abnormalities. Degenerative disc changes. X-ray of the knee showed no acute posttraumatic abnormality. Tricompartment degenerative changes greatest in the medial joint spaces. Pelvic x-ray showed no acute posttraumatic abnormality. Chest x-ray showed mild cardiomegaly, pulmonary vessels top normal caliber. Review of Systems Constitutional: Patient denies any fever or chills . No generalized weakness or weight loss. Abdomen: Patient denied nausea vomiting and diarrhea and abdominal pain. Cardiovascular: Patient denies any chest pain or short of breath no palpitation s. Respiratory: patient denied any cough or sputum production. No shortness of breath Neurologic: Patient denied any numbness or tingling. no headache. Syncopal episodes Musculoskeletal: Patient denies any complaints of joint swelling or deformity. Skin: Negative Psychiatric: Negative Endocrine: No heat or cold intolerance. No recent weight gain. Genitourinary: No dysuria or hematuria. All other 14 point ROS negative except the above Past Medical History Past Medical History: Asthma, Diabetes Mellitus, Deep Vein Thrombosis (DVT), Hypertension, Osteoarthritis (OA), Pulmonary Embolus (PE) Additional Past Medical History / Comment(s): chronic sinus issues and allergies, Pre-diabetes Type 2 (on pill) 2023. History of Any Multi-Drug Resistant Organisms: None Reported Past Surgical History: Orthopedic Surgery Additional Past Surgical History / Comment(s): meniscus repair in left knee Past Anesthesia/Blood Transfusion Reactions: No Reported Reaction Past Psychological History: No Psychological Hx Reported Smoking Status: Never smoker Past Alcohol Use History: None Reported Past Drug Use History: None Reported - Past Family History Mother Family Medical History: Congestive Heart Failure (CHF) Father Additional Family Medical History / Comment(s): HX OF lUPUS Medications and Allergies Home Medications Medication Instructions Recorded Confirmed Type Montelukast [Singulair] 10 mg PO DAILY 04/03/16 04/25/24 History Atorvastatin [Lipitor] 20 mg PO DAILY 12/21/20 04/25/24 History Omeprazole Magnesium [PriLOSEC OTC] 20 mg PO DAILY 12/21/20 04/25/24 History Sertraline [Zoloft] 50 mg PO DAILY 10/20/21 04/25/24 History Fluticasone Nasal [place] [Flonase 1 spr EA NOSTRIL BID PRN 02/01/24 04/25/24 History Nasal [place]] Triamcinolone 0.5% Cream [Kenalog 1 applic TOPICAL BID 02/01/24 04/25/24 History 0.5% Cream] buPROPion XL [Wellbutrin XL] 150 mg PO DAILY 02/01/24 04/25/24 History Sennosides-Docusate Sodium 1 tab PO BID PRN #60 tablet 02/02/24 04/25/24 Rx [Senokot-S] methocarbamoL [Robaxin-750] 750 mg PO QID PRN tab 02/02/24 04/25/24 Rx Albuterol Sulfate [Albuterol 2 puff PO RT-QID PRN 03/06/24 04/25/24 History Sulfate Hfa] Ondansetron [Zofran] 4 mg PO Q6H PRN 03/06/24 04/25/24 History Acetaminophen Tab [Tylenol] 650 mg PO Q4HR PRN tab 03/08/24 04/25/24 Rx HYDROcodone/APAP 5-325MG [[place] 1 tab PO Q6HR PRN #12 tab 03/08/24 04/25/24 Rx 5-325] LORazepam [Ativan] 0.5 mg PO DAILY PRN #3 tab 03/08/24 04/25/24 Rx Midodrine [ProAmatine] 5 mg PO AC-TID tab 03/08/24 04/25/24 Rx amLODIPine [Norvasc] 5 mg PO HS tab 03/08/24 04/25/24 Rx lisinopriL [Zestril] 5 mg PO HS tab 03/08/24 04/25/24 Rx Empagliflozin [Jardiance] 10 mg PO DAILY 04/25/24 04/25/24 History INSULIN ASPART (NovoLOG) [NovoLOG See Protocol SQ AC-TID PRN 04/25/24 04/25/24 History (formulary)] Rivaroxaban [Xarelto] 10 mg PO DAILY 04/25/24 04/25/24 History Allergies Allergy/AdvReac Type Severity Reaction Status Date / Time latex Allergy Rash/Hives Verified 04/25/24 10:24 metformin AdvReac Nausea Verified 04/25/24 10:24 Physical Exam Vitals: Vital Signs Temp Pulse Resp BP Pulse Ox 04/25/24 09:00 64 16 137/69 98 04/25/24 05:00 77 15 141/68 97 04/25/24 04:50 80 18 04/24/24 23:12 98.4 F 78 18 135/83 98 Intake and Output 04/24/24 04/25/24 04/25/24 22:59 06:59 14:59 Other: Weight 127.006 kg PHYSICAL EXAMINATION: Patient is lying in the bed comfortably, no acute distress, awake alert and oriented. Morbidly obese.. HEENT: Normocephalic. Neck is supple. Pupils reactive. Nostrils clear. Oral cavity is moist. Neck reveals no JVD, carotid bruits, or thyromegaly. CHEST EXAMINATION: Trachea is central. Symmetrical expansion. Bibasilar diminished sounds. Lung villa clear to auscultation and percussion. CARDIAC: Normal S1, S2 with no gallops. No murmurs ABDOMEN: Soft. Bowel sounds normal. No organomegaly. No abdominal bruits. Extremities: reveal no edema. No clubbing or cyanosis Neurologically awake, alert, oriented x3 with well-coordinated movements. No gross focal deficits noted Skin: No rash or skin lesions. Psychiatric: Coperative. Nonsuicidal Musculoskeletal: No joint swelling or deformity. Normal range of motion. Results CBC & Chem 7: 04/25/24 00:57 04/25/24 16:15 Labs: Abnormal Lab Results - Last 24 Hours (Table) 04/25/24 04/25/24 04/25/24 Range/Units 00:57 00:57 06:56 RBC 3.76 L (3.80-5.40) m/uL Lymphocytes # 0.7 L (1.0-4.8) k/uL Sodium 132 L (137-145) mmol/L Potassium 3.3 L 3.2 L (3.5-5.1) mmol/L BUN 18 H (7-17) mg/dL Glucose 109 H 101 H (74-99) mg/dL Total Bilirubin 1.4 H (0.2-1.3) mg/dL AST 124 H (14-36) U/L ALT 43 H (4-34) U/L Creatine Kinase 4296 H* 2708 H* (30-135) U/L Total Protein 5.6 L (6.3-8.2) g/dL Albumin 3.1 L (3.5-5.0) g/dL Thrombosis Risk Factor Assmnt - DVT/VTE Prophylaxis DVT/VTE Prophylaxis: Pharmacologic Prophylaxis ordered Assessment and Plan Assessment: Acute syncopal episode likely due to orthostatic hypotension. Patient had rec ent cardiac workup negative and was placed on registered nurse cardiac telemetry. Acute rhabdomyolysis due to fall and immobility with CPK level 4206 on admission. Hypokalemia replacing Recent history of left shoulder and left thumb fracture status post fall. History of DVT/PE on Xarelto at home Asthma Hypertension Prediabetes type II Chronic sinus allergies. Anxiety/depression Morbid obesity BMI 45.2 GI prophylaxis with PPI Plan: Patient will be continued on telemonitoring. Continue with IV hydration with normal saline 130 cc/h. Follow-up CPK level. Continue with home medications and titrate blood pressure medications. Cardiology and nephrology consult for evaluation. Current pain management and encourage incentive spirometry. [place] ultrasound was ordered. Continue to follow closely. Time with Patient: Greater than 30
[2024-04-25] MEDS: lisinopriL 5 MG TAB PO SCH (23:19)
[2024-04-26 07:19] LABS: Glucose,Whole Blood 97 mg/dL (70-110)
[2024-04-26 09:07] LABS: Basophils # (A) 0.03 X 10*3/uL (0.00-0.10); Basophils % (A) 0.4 %; Eosinophils # (A) 0.13 X 10*3/uL (0.04-0.35); Eosinophils % (A) 1.9 %; HCT 35.8 % (37.2-46.3); HGB 11.5 g/dL (12.0-15.0); Lymphocytes # (A) 0.91 X 10*3/uL (0.90-5.00); Lymphocytes % (A) 13.4 %; MCH 30.6 pg (27.0-32.0); MCHC 32.1 g/dL (32.0-37.0); MCV 95.2 FL (80.0-97.0); Mean Platelet Volume 10.7 FL (9.5-12.2); Monocytes # (A) 0.91 X 10*3/uL (0.20-1.00); Monocytes % (A) 13.4 %; NRBC Per 100 WBC 0 X 10*3/uL (0.00-0.01); Neutrophils # (A) 4.76 X 10*3/uL (1.80-7.70); Neutrophils % (A) 70.5 %; Platelet Count 171 X 10*3/uL (140-440); RBC 3.76 X 10*6/uL (4.10-5.20); RDW 14.8 % (11.5-14.5); WBC 6.77 X 10*3/uL (4.50-10.00)
--- NOTE | 2024-04-26 09:27 | US ---
EXAMINATION TYPE: US carotid duplex BILAT DATE OF EXAM: 04/26/2024 COMPARISON: NONE CLINICAL INDICATION: Female, 73 years old with history of sycope; Syncope TECHNIQUE: Grayscale, color Doppler and spectral Doppler evaluation of the bilateral carotid systems and vertebral arteries.Indirect Doppler criteria was utilized. FINDINGS: EXAM MEASUREMENTS: RIGHT: Peak Systolic Velocity (PSV) cm/sec ----- Right CCA: 70.1 ----- Right ICA: 90.3 ----- Right ECA: 104 ICA/CCA ratio: 1.2 RIGHT: End Diastole cm/sec ----- Right CCA: 10.7 ----- Right ICA: 27.9 ----- Right ECA: 8.3 LEFT: Peak Systolic Velocity (PSV) cm/sec ----- Left CCA: 90.2 ----- Left ICA: 78.2 ----- Left ECA: 89.2 ICA/CCA ratio: 0.9 LEFT: End Diastole cm/sec ----- Left CCA: 15.7 ----- Left ICA: 19.4 ----- Left ECA: 6.8 VERTEBRALS (direction of flow): Right Vertebral: Antegrade Left Vertebral: Antegrade Rhythm: Normal FABRICATION MANAGER NOTES: No significant velocity elevations IMPRESSION: No evidence for hemodynamically significant stenosis. Criteria for Assigning % of Stenosis / Diameter reduction (Estimation based on the indirect measurements of the internal carotid artery velocities (ICA PSV). 1. Normal (no stenosis)=ICA PSV < 125 cm/s: ratio < 2.0: ICA EDV<40 cm/s. 2. Less than 50% stenosis=ICA PSV < 125 cm/s: ratio < 2.0: ICA EDV<40 cm/s. 3. 50 to 69% stenosis=ICA PSV of 125 to 230 cm/s: ration 2.0 ? 4.0: ICA EDV 40-100 cm/s. 4. Greater than 70% stenosis to near occlusion= ICA PSV > 230 cm/s: ratio > 4.0: ICA EDV > 100 cm/s. 5. Near occlusion= ICA PSV velocities may be low or undetectable: variable ratio and ICA EDV. 6. Total occlusion=unable to detect flow. [facility], , 04/26/2024 8:25 AM
[2024-04-26] MEDS: CHOLECALCIFEROL 25 MCG (1000 IU) TABLET PO SCH (09:59)
[2024-04-26] MEDS: RIVAROXABAN 10 MG TAB PO SCH (09:59)
[2024-04-26] MEDS: MIDODRINE 5 MG TAB PO SCH (09:59)
[2024-04-26] MEDS: MONTELUKAST 10 MG TAB PO SCH (09:59)
[2024-04-26] MEDS: ATORVASTATIN 20 MG TAB PO SCH (09:59)
[2024-04-26] MEDS: PANTOPRAZOLE 40 MG TABLET PO SCH (10:00)
[2024-04-26] MEDS: buPROPion XL 150 MG TAB.ER.24H PO SCH (10:00)
[2024-04-26] MEDS: FLUDROCORTISONE 0.1 MG TAB PO SCH (10:10)
--- NOTE | 2024-04-26 11:11 | P.CRDCN ---
History of Present Illness History of present illness: HISTORY OF PRESENT ILLNESS: This is a 73-year-old female with a past medical history significant for hypertension, hyperlipidemia, diabetes, unprovoked PE/DVT, asthma, obesity, and orthostatic hypotension. Patient follows in the office with Dr. Roger. We have been asked to see the patient in consultation for recurrent syncope. Patient examined at the bedside. Patient presented to the hospital after sustaining a fall at home. The patient did not lose consciousness. The patient was recently admitted to the hospital secondary to orthostatic hypotension. Patient was discharged home with an event monitor for 4 weeks. Results are currently pending. Patient did see Dr. Roger in the office on 03/26/2024. At that time, her amlodipine was discontinued and she was started on Florinef 0.1 mg daily. At the time of examination this morning, patient denies any chest pain or pressure. She denies any shortness of breath. Vital signs are stable. Orthostatic blood pressures are pending at the time of examination. DIAGNOSTICS: - EKG reveals sinus mechanism with no signs of acute ischemia - Chest xray mild cardiomegaly. Pulmonary vessels top normal caliber. - Laboratory data: WBC 6.77. Hemoglobin 11.5. Platelet count 171. Sodium 137. Potassium 3.2. BUN 15. Creatinine 0.76. Creatinine kinase 2708. - Current home cardiac medications include Jardiance 10 mg daily, Xarelto 10 mg daily, Lipitor 20 mg daily, midodrine 5 mg 3 times daily, amlodipine 5 mg at night, lisinopril 5 mg at night - Most recent echocardiogram obtained in March 2024 revealed ejection fraction 55 to 60%, mild mitral regurgitation, trace to mild tricuspid regurgitation, no significant pulmonary hypertension - Cardiac catheterization history: Unknown REVIEW OF SYSTEMS: At the time of my exam: CONSTITUTIONAL: Denies fever or chills. HEENT: Denies blurred vision, vision changes, or eye pain. Denies hemoptysis CARDIOVASCULAR: Denies chest pain. Denies orthopnea. Denies PND. Denies palpit ations RESPIRATORY: Denies shortness of breath. GASTROINTESTINAL: Denies abdominal pain. Denies nausea or vomiting. HEMATOLOGIC: Denies bleeding disorders. GENITOURINARY: Denies any blood in urine. SKIN: Denies pruitis. Denies rash. PHYSICAL EXAM: VITAL SIGNS: Reviewed. GENERAL: Well-developed in no acute distress. HEENT: Head is normocephalic. Pupils are equal, round. Sclerae anicteric. Mucous membranes of the mouth are moist. Neck supple. No JVD or thyromegaly LUNGS: Respirations even and unlabored. Lungs essentially clear to auscultation bilaterally. HEART: Regular rate and rhythm. S1 and S2 heard. ABDOMEN: Soft. Nondistended. Nontender. EXTREMITIES: Normal range of motion. No clubbing or cyanosis. Peripheral pulses intact. No lower extremity edema NEUROLOGIC: Awake and alert. Oriented x 3. ASSESSMENT: Status post fall Orthostatic hypotension History of unprovoked PE/DVT, on Xarelto History of hypertension History of hyperlipidemia History of asthma Obesity: BMI 45.2 PLAN: No need to repeat echocardiogram as this was performed in March 2024 Obtain orthostatic blood pressures Initiate telemetry monitoring to assess for arrhythmias Discontinue amlodipine Begin Florinef 0.1 mg daily Continue current dose of midodrine [facility] with [facility] regarding recent placement of event monitor. They will try to obtain telemetry tracings of event monitor. Further recommendations pending patient course Nurse practitioner note has been reviewed by physician. Signing provider agrees with the documented findings, assessment, and plan of care documented by AUTOMOBILE ENGINE [employer]SEMBLER as a scribe. Past Medical History Past Medical History: Asthma, Diabetes Mellitus, Deep Vein Thrombosis (DVT), Hypertension, Osteoarthritis (OA), Pulmonary Embolus (PE) Additional Past Medical History / Comment(s): chronic sinus issues and allergie s, Pre-diabetes Type 2 (on pill) 2023. History of Any Multi-Drug Resistant Organisms: None Reported Past Surgical History: Orthopedic Surgery Additional Past Surgical History / Comment(s): meniscus repair in left knee Past Anesthesia/Blood Transfusion Reactions: No Reported Reaction Past Psychological History: No Psychological Hx Reported Smoking Status: Never smoker Past Alcohol Use History: None Reported Past Drug Use History: None Reported - Past Family History Mother Family Medical History: Congestive Heart Failure (CHF) Father Additional Family Medical History / Comment(s): HX OF lUPUS Medications and Allergies Home Medications Medication Instructions Recorded Confirmed Type Montelukast [Singulair] 10 mg PO DAILY 04/03/16 04/25/24 History Atorvastatin [Lipitor] 20 mg PO DAILY 12/21/20 04/25/24 History Omeprazole Magnesium [PriLOSEC OTC] 20 mg PO DAILY 12/21/20 04/25/24 History Sertraline [Zoloft] 50 mg PO DAILY 10/20/21 04/25/24 History Fluticasone Nasal [place] [Flonase 1 spr EA NOSTRIL BID PRN 02/01/24 04/25/24 History Nasal [place]] Triamcinolone 0.5% Cream [Kenalog 1 applic TOPICAL BID 02/01/24 04/25/24 History 0.5% Cream] buPROPion XL [Wellbutrin XL] 150 mg PO DAILY 02/01/24 04/25/24 History Sennosides-Docusate Sodium 1 tab PO BID PRN #60 tablet 02/02/24 04/25/24 Rx [Senokot-S] methocarbamoL [Robaxin-750] 750 mg PO QID PRN tab 02/02/24 04/25/24 Rx Albuterol Sulfate [Albuterol 2 puff PO RT-QID PRN 03/06/24 04/25/24 History Sulfate Hfa] Ondansetron [Zofran] 4 mg PO Q6H PRN 03/06/24 04/25/24 History Acetaminophen Tab [Tylenol] 650 mg PO Q4HR PRN tab 03/08/24 04/25/24 Rx HYDROcodone/APAP 5-325MG [[place] 1 tab PO Q6HR PRN #12 tab 03/08/24 04/25/24 Rx 5-325] LORazepam [Ativan] 0.5 mg PO DAILY PRN #3 tab 03/08/24 04/25/24 Rx Midodrine [ProAmatine] 5 mg PO AC-TID tab 03/08/24 04/25/24 Rx amLODIPine [Norvasc] 5 mg PO HS tab 03/08/24 04/25/24 Rx lisinopriL [Zestril] 5 mg PO HS tab 03/08/24 04/25/24 Rx Empagliflozin [Jardiance] 10 mg PO DAILY 04/25/24 04/25/24 History INSULIN ASPART (NovoLOG) [NovoLOG See Protocol SQ AC-TID PRN 04/25/24 04/25/24 History (formulary)] Rivaroxaban [Xarelto] 10 mg PO DAILY 04/25/24 04/25/24 History Allergies Allergy/AdvReac Type Severity Reaction Status Date / Time latex Allergy Rash/Hives Verified 04/25/24 10:24 metformin AdvReac Nausea Verified 04/25/24 10:24 Physical Exam Vitals: Vital Signs Temp Pulse Pulse Pulse Pulse Resp BP 04/26/24 10:13 75 80 66 04/26/24 07:13 97.7 F 69 16 176/83 04/26/24 02:00 98.5 F 66 16 134/72 04/25/24 19:49 98.6 F 74 16 178/81 04/25/24 18:21 71 18 04/25/24 12:45 98 F 71 18 135/81 04/25/24 11:42 97.9 F 72 17 144/78 BP BP BP Pulse Ox 04/26/24 10:13 159/74 111/72 156/78 04/26/24 07:13 94 L 04/26/24 02:00 96 04/25/24 19:49 97 04/25/24 18:21 04/25/24 12:45 93 L 04/25/24 11:42 98 Intake and Output 04/25/24 04/26/24 04/26/24 22:59 06:59 14:59 Intake Total 550 Balance 550 Intake: Intake, IV Titration 550 Amount Sodium Chloride 0.9% 1, 550 000 ml @ 130 mls/hr IV . Q7H42M [facility] Rx#:[id number] Other: Voiding Method Bedside Commode # Voids 3 Results 04/26/24 06:13 04/25/24 16:15 CBC 04/26/24 Range/Units 06:13 WBC 6.77 (4.50-10.00) X 10*3/uL RBC 3.76 L (4.10-5.20) X 10*6/uL Hgb 11.5 L (12.0-15.0) g/dL Hct 35.8 L (37.2-46.3) % Plt Count 171 (140-440) X 10*3/uL Comprehensive Metabolic Panel 04/25/24 Range/Units 16:15 Potassium 3.5 (3.5-5.1) mmol/L Current Medications Generic Name Dose Route Start Last Admin Trade Name Freq PRN Reason Stop Dose Admin Acetaminophen 650 mg 04/25/24 03:18 Acetaminophen Tab 325 Mg Tab PO Q6HR PRN Mild Pain or Fever > 100.5 Atorvastatin Calcium 20 mg 04/26/24 09:00 04/26/24 09:59 Atorvastatin 20 Mg Tab PO 20 mg DAILY BENITO Administration Bupropion HCl 150 mg 04/26/24 09:00 04/26/24 10:00 Bupropion Xl 150 Mg Tab.Er.24h PO 150 mg DAILY BENITO Administration Cholecalciferol 25 mcg 04/26/24 09:00 04/26/24 09:59 Cholecalciferol 25 Mcg (1000 Iu) Tablet PO 25 mcg DAILY BENITO Administration Dextrose/Water 25 ml 04/25/24 09:50 Dextrose 50% Syringe 50 Ml IVP PER PROTOCOL PRN Hypoglycemia Protocol Dextrose/Water 50 ml 04/25/24 09:50 Dextrose 50% Syringe 50 Ml IVP PER PROTOCOL PRN Hypoglycemia Protocol Fludrocortisone Acetate 0.1 mg 04/26/24 09:00 04/26/24 10:10 Fludrocortisone 0.1 Mg Tab PO 0.1 mg DAILY BENITO Administration Sodium Chloride 1,000 mls @ 130 mls/hr 04/25/24 10:00 04/26/24 10:14 Saline 0.9% IV Not Given .Q7H42M [facility] Insulin Aspart 0 unit 04/25/24 12:30 04/26/24 09:51 Insulin Aspart (Novolog) 100 Unit/Ml Vial SQ Not Given ACHS [facility] Protocol Lisinopril 5 mg 04/25/24 22:45 04/25/24 23:19 Lisinopril 5 Mg Tab PO 5 mg HS BENITO Administration Lorazepam 0.5 mg 04/25/24 22:33 Lorazepam 0.5 Mg Tab PO DAILY PRN Anxiety Midodrine 5 mg 04/26/24 07:30 04/26/24 09:59 Midodrine 5 Mg Tab PO 5 mg AC-TID BENITO Administration Montelukast Sodium 10 mg 04/26/24 09:00 04/26/24 09:59 Montelukast 10 Mg Tab PO 10 mg DAILY BENITO Administration Naloxone HCl 0.2 mg 04/25/24 03:18 Naloxone 0.4 Mg/Ml 1 Ml Vial IV Q2M PRN Opioid Reversal Ondansetron HCl 4 mg 04/25/24 03:18 Ondansetron 4 Mg/2 Ml Vial IVP Q8HR PRN Nausea And Vomiting Pantoprazole Sodium 40 mg 04/26/24 09:00 04/26/24 10:00 Pantoprazole 40 Mg Tablet PO 40 mg DAILY BENITO Administration Rivaroxaban 10 mg 04/26/24 09:00 04/26/24 09:59 Rivaroxaban 10 Mg Tab PO 10 mg DAILY BENITO Administration Protocol Senna/Docusate Sodium 1 each 04/25/24 22:33 Sennosides-Docusate Sodium 1 Each Tab PO BID PRN Constipation Intake and Output 04/25/24 04/26/24 04/26/24 22:59 06:59 14:59 Intake Total 550 Balance 550 Intake: Intake, IV Titration 550 Amount Sodium Chloride 0.9% 1, 550 000 ml @ 130 mls/hr IV . Q7H42M [facility] Rx#:[id number] Other: Voiding Method Bedside Commode # Voids 3 04/26/24 06:13 04/25/24 16:15
--- NOTE | 2024-04-26 11:14 | P.PN ---
Subjective Patient is seen in follow-up for rhabdomyolysis. CK levels trending down. On IV fluids. No hematuria. Vital signs are stable. General: No audible rhonchi or wheezes. HEENT: Head exam is unremarkable. LUNGS: No audible rhonchi or wheezes. HEART: Rate and Rhythm are regular. ABDOMEN: Nontender. EXTREMITITES: No edema. Objective - Vital Signs Vital signs: Vital Signs Temp 97.7 F 04/26/24 07:13 Pulse 66 04/26/24 10:13 Resp 16 04/26/24 07:13 BP 156/78 04/26/24 10:13 Pulse Ox 94 L 04/26/24 07:13 FiO2 Intake & Output 04/25/24 04/26/24 04/26/24 18:59 06:59 18:59 Intake Total 550 Balance 550 Weight 127.006 kg Intake: Intake, IV Titration 550 Amount Sodium Chloride 0.9% 1, 550 000 ml @ 130 mls/hr IV . Q7H42M [facility] Rx#:[id number] Other: Voiding Method Bedside Commode Bedside Commode # Voids 1 3 - Labs CBC & Chem 7: 04/26/24 06:13 04/25/24 16:15 Labs: Abnormal Lab Results - Last 24 Hours (Table) 04/24/24 04/26/24 Range/Units 23:17 06:13 RBC 3.76 L (4.10-5.20) X 10*6/uL Hgb 11.5 L (12.0-15.0) g/dL Hct 35.8 L (37.2-46.3) % RDW 14.8 H (11.5-14.5) % Urine Appearance Cloudy H (Clear) Urine Protein 1+ H (Negative) Urine Blood Large H (Negative) Ur Leukocyte Esterase Large H (Negative) Urine RBC 9 H (0-5) /hpf Urine WBC 47 H (0-5) /hpf Urine Bacteria Many H (None) /hpf Urine Mucus Many H (None) /hpf Assessment and Plan Plan: Assessment: 1. Rhabdomyolysis secondary to fall and immobility. CK level 40-96 on admission and improved to 2708 yesterday. GFR at baseline. 2. Hypokalemia from poor intake. Replaced. 3. Diabetes mellitus. 4. Benign hypertension. Stable. Orthostatics positive. 5. Multiple falls and debility. No acute fractures noted. Plan: Maintain IV fluids. Decrease rate to 50 cc an hour. Repeat CK level in the morning. Avoid nephrotoxins. Stop lisinopril. Patient has been started on Florinef. Also on midodrine. Monitor orthostatics daily. Hold midodrine for standing systolic blood pressure greater than 115.
[2024-04-26 12:22] LABS: Glucose,Whole Blood 112 mg/dL (70-110)
[2024-04-26] MEDS: FLUTICASONE NASAL 50MCG/SPRAY 16GM BTL EA NOSTRIL PRN (13:04)
[2024-04-26] MEDS: NYSTATIN 100,000 UNIT/GM POWD 15 GM TOPICAL SCH (13:04)
--- NOTE | 2024-04-26 13:38 | CDI ---
Documentation Clarification Form Date: 04/26/2024 From: Liv Blandon RN CCDS Phone: [phone] Admit Date: 04/25/2024 03:20:00 AM Patient Name: Adelina Orellana Visit Number: [id number] Discharge Date: ATTENTION: The Clinical Documentation Specialists (CDI) and [facility] Coding Staff appreciate your assistance in clarifying documentation. Please respond to the clarification below the line at the bottom and electronically sign. The CDI & [facility] Coding staff will review the response and follow-up if needed. Please note: Queries are made part of the Legal Health Record. If you have any questions, please contact the author of this message via ITS. Doctor/Provider: Rivas Orozco MD: Rhabdomyolysis is documented in the ED note 04/24 and in subsequent notes. Additional clarification regarding the type of rhabdomyolysis is requested. History/Risk Factors: 73 year old male with a history of HTN, pre diabetes, recent right shoulder and right thumb fractures due to fall who presents after fall and prolonged immobility Clinical Indicators: 04/24 ED note, HPI: "Fall occurred at approximately 5 AM this morning. Was not found until 5 PM by family. Presents at nearly 11:30 PM for evaluation. Patient was on the ground for that entire time was unable to stand up on her own." Clinical Impression: "Fall, Rhabdomyolysis, Rib contusion" 04/25 H&P, Assessment: "Acute rhabdomyolysis due to fall and immobility with CPK level 4206 on admission." 04/25 Nephrology consult, Assessment:"1.Rhabdomyolysis secondary to fall and immobility.CK level 40-96 on admission and is 2708 today. GFR at baseline." 04/25 Creatine Kinase: 4296, 2708 EGFR(Non-Afr Wallisian): 69, 78 BUN: 18, 15 Creatinine: 0.84, 0.76 Potassium: 3.3, 3.2, 3.5 Treatment: Normal Saline IV 1000cc bolus x1 on04/24, repeated on 04/25 then 130cc/hour 04/25 Consult Nephrology, Monitor Creatine Please clarify the type of rhabdomyolysis, if known: [ x ] Traumatic rhabdomyolysis due to fall [ ] Traumatic rhabdomyolysis due to prolonged immobility [ ] Traumatic rhabdomyolysis due to fall and prolonged immobility [ ] Other, please specify [ ] Unable to Determine Acute traumatic rhabdomyolysis due to immobility and fall on DC summary 05/01 MTDD
[2024-04-26 15:47] LABS: BUN/Creat Ratio 13.62 Ratio (12.00-20.00); Blood Urea Nitrogen 10.9 mg/dL (9.0-27.0); Creatine Kinase 950 U/L (26-186); Glucose 97 mg/dL (70-110)
[2024-04-26 15:48] LABS: ALT 47 U/L (8-44); AST 87 U/L (13-35); Albumin 2.9 g/dL (3.8-4.9); Albumin/Globulin Ratio 1.38 Ratio (1.60-3.17); Alkaline Phosphatase 104 U/L (41-126); Calcium 8.4 mg/dL (8.7-10.3); Carbon Dioxide 21.8 mmol/L (21.6-31.8); Chloride 109 mmol/L (96-109); Globulin 2.1 g/dL (1.6-3.3); Magnesium 1.9 mg/dL (1.5-2.4); Potassium 3.9 mmol/L (3.5-5.5); Sodium 139 mmol/L (135-145); Total Bilirubin 0.6 mg/dL (0.3-1.2); Vitamin B12 <150.0 pg/mL (200.0-944.0)
[2024-04-26 17:25] LABS: Glucose,Whole Blood 88 mg/dL (70-110)
[2024-04-26 20:29] LABS: Glucose,Whole Blood 126 mg/dL (70-110)
[2024-04-26] MEDS ORDERED: amLODIPine 5 MG TAB PO SCH (21:00)
--- NOTE | 2024-04-27 00:54 | P.PN ---
Subjective Progress Note Date: 04/26/24 Patient is a 73-year-old female with a past medical history of hypertension, hyperlipidemia, pre-diabetes, recent right shoulder fracture secondary to fall, right thumb fracture due to fall and recent admission due to multiple syncopal episodes placed on fountain vending mechanic, orthostatic hypotension, History of DVT on Xarelto presents to ER status post fall at home. Patient has been having multiple falls/syncopal episodes recently and was seen by cardiology during recent admission. Patient states that she did not lose her consciousness. Not sure how long. Patient was found to be orthostatic hypotensive and was started on midodrine during previous admission.. 2D echocardiogram showed normal EF and no significant valve abnormalities. Patient had a fountain vending mechanic placed. Otherwise patient denied any complaints of headache. No fever no chills. No cough or sputum production. No complaints of abdominal pain. Denied any complaints of dysuria or hematuria. Patient is also complaining of left upper chest pain which is reproducible. On admission sodium 133 potassium 3.3, BUN 18 and creatinine 0.84 and blood sugar 109 CPK level was 4296 and repeat was 2708 and albumin 3.1. Urinalysis showed cloudy with large blood nitrite negative large leukocyte esterase with elevated RBCs and WBCs 47. CT head showed no acute stroke or hemorrhage. Nonspecific white matter changes, most commonly seen with small vessel disease. EKG showed sinus rhythm. CT cervical spine and thoracic spine and lumbar spine showed no acute osseous abnormalities. Degenerative disc changes. X-ray of the knee showed no acute posttraumatic abnormality. Tricompartment degenerative changes greatest in the medial joint spaces. Pelvic x-ray showed no acute posttraumatic abnormality. Chest x-ray showed mild cardiomegaly, pulmonary vessels top normal caliber. 04/26/2024 Patient is seen in follow-up today with nephrology following as well as cardiology. Adjusting medications this blood pressure remains uncontrolled. Patient evaluated by physical therapy recommending rehab although patient reports she will be going home as her insurance does not cover continued PT/OT therapy. Patient is afebrile denies chest pain or shortness of breath. Patient reports to urinating frequently since receiving diuretic medication. Will follow-up with repeat labs and continue to monitor closely. Review of systems: Constitutional: No reports of fatigue, fever, or chills Cardiovascular: No reports of chest pain or palpitations Respiratory: No reports of shortness of breath or cough GI: No reports of nausea, vomiting, or diarrhea : No reports of dysuria or retention Neurovascular: reports of generalized weakness all feeling improved from admission All medications have been reviewed Physical exam: Patient is sitting up in the chair y, no acute distress, awake alert and oriented. Elderly appearing morbidly obese.. HEENT: Normocephalic. Neck is supple. Pupils reactive. Nostrils clear. Oral cavity is moist. Neck reveals no JVD, carotid bruits, or thyromegaly. CHEST EXAMINATION: Trachea is central. Symmetrical expansion. Bibasilar diminished sounds. Lung villa clear to auscultation and percussion. CARDIAC: Normal S1, S2 with no gallops. No murmurs ABDOMEN: Soft. Obese. Bowel sounds normal. No organomegaly. No abdominal bruits. Extremities: reveal no edema. No clubbing or cyanosis Neurologically awake, alert, oriented x3 with well-coordinated movements. No gross focal deficits noted Skin: No rash or skin lesions. Psychiatric: Cooperative. Non-suicidal Musculoskeletal: No joint swelling or deformity. Normal range of motion. Assessment: Acute syncopal episode likely due to orthostatic hypotension. Patient had recent cardiac workup negative and was placed on fountain vending mechanic. Acute traumatic rhabdomyolysis due to fall and immobility with CPK level 4206 on admission. Hypokalemia, improved after replacement Recent history of left shoulder and left thumb fracture status post fall. History of DVT/PE on Xarelto at home Asthma Hypertension Prediabetes type II Chronic sinus allergies. Anxiety/depression Morbid obesity BMI 45.2 GI prophylaxis with PPI DVT prophylaxis Full code Plan: Patient will be continued on telemonitoring. Continue with gentle IV hydration Follow-up CPK level is trending down. Continue with home medications and titrate blood pressure medications. Cardiology and nephrology following making adjustments to medications Patient evaluated by PT/OT therapy rec rehab although patient reports she will be going home and has support at the home and her insurance does not cover going to rehab [id number] expense that she cannot afford. Recommend PT/OT therapy daily as patient will be returning home. Will follow-up on repeat labs and discuss further with cardiology and nephrology regarding discharge planning The impression and plan of care has been dictated by Abbie Holcomb, Nurse Practitioner as directed. Dr. Ernesto MD I have performed a history and examination and MDM of this patient, discussed the same with the dictator, and agree with the dictator's assessment and plan as written ,documented as a scribe. Based on total visit time, I have performed more than 50% of the visit. Objective - Vital Signs Vital signs: Vital Signs Temp 97.7 F 04/26/24 07:13 Pulse 69 04/26/24 07:13 Resp 16 04/26/24 07:13 BP 176/83 04/26/24 07:13 Pulse Ox 94 L 04/26/24 07:13 FiO2 Intake & Output 04/25/24 04/26/24 04/26/24 18:59 06:59 18:59 Intake Total 550 Balance 550 Weight 127.006 kg Intake: Intake, IV Titration 550 Amount Sodium Chloride 0.9% 1, 550 000 ml @ 130 mls/hr IV . Q7H42M [facility] Rx#:[id number] Other: Voiding Method Bedside Commode Bedside Commode # Voids 1 3 - Labs CBC & Chem 7: 04/26/24 06:13 04/26/24 06:13 Labs: Abnormal Lab Results - Last 24 Hours (Table) 04/24/24 04/26/24 Range/Units 23:17 06:13 RBC 3.76 L (4.10-5.20) X 10*6/uL Hgb 11.5 L (12.0-15.0) g/dL Hct 35.8 L (37.2-46.3) % RDW 14.8 H (11.5-14.5) % Urine Appearance Cloudy H (Clear) Urine Protein 1+ H (Negative) Urine Blood Large H (Negative) Ur Leukocyte Esterase Large H (Negative) Urine RBC 9 H (0-5) /hpf Urine WBC 47 H (0-5) /hpf Urine Bacteria Many H (None) /hpf Urine Mucus Many H (None) /hpf
[2024-04-27] MEDS: LORazepam 0.5 MG TAB PO PRN (01:07)
[2024-04-27 07:32] LABS: Glucose,Whole Blood 119 mg/dL (70-110)
[2024-04-27 07:46] VITALS: RESP 18
[2024-04-27 10:01] LABS: ALT 45 U/L (8-44); AST 66 U/L (13-35); Albumin 2.8 g/dL (3.8-4.9); Albumin/Globulin Ratio 1.56 Ratio (1.60-3.17); Alkaline Phosphatase 98 U/L (41-126); BUN/Creat Ratio 13.14 Ratio (12.00-20.00); Blood Urea Nitrogen 9.2 mg/dL (9.0-27.0); Calcium 8.3 mg/dL (8.7-10.3); Carbon Dioxide 23.4 mmol/L (21.6-31.8); Chloride 109 mmol/L (96-109); Creatine Kinase 587 U/L (26-186); Globulin 1.8 g/dL (1.6-3.3); Glucose 106 mg/dL (70-110); Potassium 3.4 mmol/L (3.5-5.5); Sodium 141 mmol/L (135-145); Total Bilirubin 0.7 mg/dL (0.3-1.2); Total Protein 4.6 g/dL (6.2-8.2)
--- NOTE | 2024-04-27 12:04 | P.PN ---
Subjective Patient is seen in follow-up for rhabdomyolysis. CK levels trending down. On IV fluids. No hematuria. Blood pressure better. Standing blood pressure 123/77 this morning. Vital signs are stable. General: No audible rhonchi or wheezes. HEENT: Head exam is unremarkable. LUNGS: No audible rhonchi or wheezes. HEART: Rate and Rhythm are regular. ABDOMEN: Nontender. EXTREMITITES: No edema. Objective - Vital Signs Vital signs: Vital Signs Temp 97.6 F 04/27/24 07:45 Pulse 68 04/27/24 07:45 Resp 18 04/27/24 07:45 BP 166/81 04/27/24 08:44 Pulse Ox 97 04/27/24 07:45 FiO2 Intake & Output 04/26/24 04/27/24 04/27/24 18:59 06:59 18:59 Intake Total 540 1090 Balance 540 1090 Intake: Intake, IV Titration 550 Amount Sodium Chloride 0.9% 1, 550 000 ml @ 50 mls/hr IV . Q20H [facility] Rx#:[id number] Oral 540 540 Other: Voiding Method Toilet # Voids 1 # Bowel Movements 1 - Labs CBC & Chem 7: 04/26/24 06:13 04/27/24 04:03 Labs: Abnormal Lab Results - Last 24 Hours (Table) 04/26/24 04/26/24 04/26/24 Range/Units 06:13 12:21 20:28 Potassium (3.5-5.5) mmol/L POC Glucose (mg/dL) 112 H 126 H (70-110) mg/dL Calcium 8.4 L (8.7-10.3) mg/dL AST 87 H (13-35) U/L ALT 47 H (8-44) U/L Creatine Kinase 950 H (26-186) U/L Total Protein 5.0 L (6.2-8.2) g/dL Albumin 2.9 L (3.8-4.9) g/dL Albumin/Globulin Ratio 1.38 L (1.60-3.17) Ratio Vitamin B12 <150.0 L (200.0-944.0) pg/mL 04/27/24 04/27/24 Range/Units 04:03 07:05 Potassium 3.4 L (3.5-5.5) mmol/L POC Glucose (mg/dL) 119 H (70-110) mg/dL Calcium 8.3 L (8.7-10.3) mg/dL AST 66 H (13-35) U/L ALT 45 H (8-44) U/L Creatine Kinase 587 H (26-186) U/L Total Protein 4.6 L (6.2-8.2) g/dL Albumin 2.8 L (3.8-4.9) g/dL Albumin/Globulin Ratio 1.56 L (1.60-3.17) Ratio Vitamin B12 (200.0-944.0) pg/mL Assessment and Plan Plan: Assessment: 1. Rhabdomyolysis secondary to fall and immobility. CK level 4296 on admission and improved to 587 today. GFR at baseline. 2. Hypokalemia from Florinef. 3. Diabetes mellitus. 4. Benign hypertension. Stable. Orthostatics positive. Standing blood pressure improved to 123/77 this morning. 5. Multiple falls and debility. No acute fractures noted. Plan: Maintain IV fluids. Avoid nephrotoxins. Stop lisinopril. Patient has been started on Florinef. Monitor orthostatics daily. Hold midodrine for standing systolic blood pressure greater than 115. Potassium replaced.
[2024-04-27] MEDS: POTASSIUM CHLORIDE ER 20 MEQ TAB.ER PO STA (12:13)
[2024-04-27 12:37] LABS: Glucose,Whole Blood 110 mg/dL (70-110)
[2024-04-27 13:27] VITALS: BP 170/94; PULSE 64
--- NOTE | 2024-04-27 14:01 | P.PN ---
Subjective Progress Note Date: 04/27/24 Patient is a 73-year-old female who follows in the office with Dr. RAYSHAWN Roger. She presented to the hospital after experiencing a fall, for which she did not lose consciousness. Patient had a similar admission recently for orthostatic hypotension. Outpatient event monitor showed no sustained arrhythmias or episodes of bradycardia. Patient was started on Florinef Patient interviewed and examined resting comfortably in bed. No current complaints. GENERAL: Well-appearing, well-nourished and in no acute distress. NECK: Supple without JVD or thyromegaly. LUNGS: Breath sounds clear to auscultation bilaterally. Respiration equal and unlabored. No wheezes, rales or rhonchi. HEART: Regular rate and rhythm without murmurs, rubs or gallops. S1 and S2 heard. EXTREMITIES: Normal range of motion, no edema. No clubbing or cyanosis. Peripheral pulses intact and strong. IMPRESSION: Status post fall Orthostatic hypotension History of unprovoked PE/DVT, on Xarelto History of hypertension History of hyperlipidemia History of asthma Obesity: BMI 45.2 PLAN: Continue current medication regimen Outpatient follow-up with primary refrigeration mechanic helper Dr. Roger I am dictating on behalf of Dr Paulo Stewart's history/physical and assessment/plan. Objective - Vital Signs Vital signs: Vital Signs Temp 97.6 F 04/27/24 07:45 Pulse 64 04/27/24 12:30 Resp 18 04/27/24 07:45 BP 170/94 04/27/24 12:30 Pulse Ox 97 04/27/24 07:45 FiO2 Intake & Output 04/26/24 04/27/24 04/27/24 18:59 06:59 18:59 Intake Total 540 1090 Balance 540 1090 Intake: Intake, IV Titration 550 Amount Sodium Chloride 0.9% 1, 550 000 ml @ 50 mls/hr IV . Q20H BENITO Rx#:[id number] Oral 540 540 Other: Voiding Method Toilet # Voids 1 # Bowel Movements 1 - Labs CBC & Chem 7: 04/26/24 06:13 04/27/24 04:03 Labs: Abnormal Lab Results - Last 24 Hours (Table) 04/26/24 04/26/24 04/27/24 Range/Units 06:13 20:28 04:03 Potassium 3.4 L (3.5-5.5) mmol/L POC Glucose (mg/dL) 126 H (70-110) mg/dL Calcium 8.4 L 8.3 L (8.7-10.3) mg/dL AST 87 H 66 H (13-35) U/L ALT 47 H 45 H (8-44) U/L Creatine Kinase 950 H 587 H (26-186) U/L Total Protein 5.0 L 4.6 L (6.2-8.2) g/dL Albumin 2.9 L 2.8 L (3.8-4.9) g/dL Albumin/Globulin Ratio 1.38 L 1.56 L (1.60-3.17) Ratio Vitamin B12 <150.0 L (200.0-944.0) pg/mL 04/27/24 Range/Units 07:05 Potassium (3.5-5.5) mmol/L POC Glucose (mg/dL) 119 H (70-110) mg/dL Calcium (8.7-10.3) mg/dL AST (13-35) U/L ALT (8-44) U/L Creatine Kinase (26-186) U/L Total Protein (6.2-8.2) g/dL Albumin (3.8-4.9) g/dL Albumin/Globulin Ratio (1.60-3.17) Ratio Vitamin B12 (200.0-944.0) pg/mL
[2024-04-27 17:27] LABS: Glucose,Whole Blood 113 mg/dL (70-110)
[2024-04-27 17:31] VITALS: TEMP 97.5
--- NOTE | 2024-05-01 19:57 | P.DS ---
Providers Date of admission: 04/25/24 03:20 Expected date of discharge: 04/27/24 Attending physician: Ivone Min Consults: 04/25/24 03:18 Consult Physician Routine Consulting Provider: Diony Samuel Consult Reason/Comments: rhabdomyolysis Do you want consulting provider notified?: Yes 04/25/24 22:56 Consult Physician Routine Consulting Provider: Carlie Roger Consult Reason/Comments: Recurrent syncope Do you want consulting provider notified?: Yes, Notify in am Primary care physician: Dipak Park Hospital Course: Final diagnosis Acute syncopal episode likely due to orthostatic hypotension. Patient had recent cardiac workup negative and was placed on desk monitor. Acute traumatic rhabdomyolysis due to fall and immobility with CPK level 4206 on admission. Hypokalemia, improved after replacement Recent history of left shoulder and left thumb fracture status post fall. History of DVT/PE on Xarelto at home Asthma Hypertension Prediabetes type II Chronic sinus allergies. Anxiety/depression Morbid obesity BMI 45.2 GI prophylaxis with PPI DVT prophylaxis Full code Discharge disposition Patient is being discharged in a stable condition with guarded prognosis to home . Patient will follow-up with Dr. Masters in the outpatient setting upon discharge. Patient is to continue with current medications and outpatient follow-up with nephrology as scheduled. Prescription provided for repeat labs to monitor kidney functions and CPK level. Total time taken is greater than 35 minutes. Hospital course This is a 73-year-old female who was recently admitted with increased weakness with recurrent falls and concerns of acute syncopal episode. Patient being closely monitored evaluated by cardiology along with nephrology had had recurrent falls and generalized weakness with an elevated CPK level with acute rhabdomyolysis on admission. Patient was evaluated by physical therapy doing well and patient reports will not be going to rehab as her insurance does not cover it. Patient reports she has help at home and will continue with home care. Patient has been cleared by consultations. Currently no reports of chest pain, shortness of breath, or palpitations. Patient is afebrile. No reports of nausea or vomiting and patient is tolerating diet. Patient will be discharged home today. Overall guarded prognosis and extremely high risk for readmissions given significant comorbidities. Physical exam: Gen: This is a 73-year-old female who is awake, alert and oriented x 3, well- developed, elderly appearing, morbidly obese HEENT: Head is atraumatic, normocephalic. Pupils equal, round. Sclerae is anicteric. NECK: Supple. No JVD. No lymphadenopathy. No thyromegaly. LUNGS: Diminished breath sounds bilaterally otherwise clear to auscultation. No wheezes or rhonchi. No intercostal retractions. HEART: S1, S2 are muffled ABDOMEN: Soft. Obese bowel sounds are present. No masses. No tenderness. EXTREMITIES: No pedal edema. No calf tenderness. Chronic lower extremity edema noted NEUROLOGICAL: Patient is awake, alert and oriented x3. Cranial nerves 2 through 12 are grossly intact. Diffusely weak Please refer to medication reconciliation sheet for a list of medications. The impression and plan of care has been dictated by Abbie Holcomb, Nurse Practitioner as directed. Dr. Ernesto MD I have performed a history and examination and MDM of this patient, discussed the same with the dictator, and agree with the dictator's assessment and plan as written ,documented as a scribe. Based on total visit time, I have performed more than 50% of the visit. Patient Condition at Discharge: Stable Plan - Discharge Summary New Discharge Prescriptions: New Nystatin 100,000 Unit/gm Powd [Mycostatin Powder] 1 applic TOPICAL BID each Cholecalciferol [Vitamin D3 (25 Mcg = 1000 Iu)] 25 mcg PO DAILY #30 tab Fludrocortisone [Florinef] 0.1 mg PO DAILY #30 tab Continue Montelukast [Singulair] 10 mg PO DAILY buPROPion XL [Wellbutrin XL] 150 mg PO DAILY Sennosides-Docusate Sodium [Senokot-S] 1 tab PO BID PRN #60 tablet PRN Reason: Constipation methocarbamoL [Robaxin-750] 750 mg PO QID PRN tab PRN Reason: Muscle Spasm Albuterol Sulfate [Albuterol Sulfate Hfa] 2 puff PO RT-QID PRN PRN Reason: Shortness Of Breath Ondansetron [Zofran] 4 mg PO Q6H PRN PRN Reason: Nausea Midodrine [ProAmatine] 5 mg PO AC-TID tab LORazepam [Ativan] 0.5 mg PO DAILY PRN #3 tab PRN Reason: Anxiety HYDROcodone/APAP 5-325MG [[place] 5-325] 1 tab PO Q6HR PRN #12 tab PRN Reason: Pain Rivaroxaban [Xarelto] 10 mg PO DAILY Atorvastatin [Lipitor] 20 mg PO DAILY Omeprazole Magnesium [PriLOSEC OTC] 20 mg PO DAILY Sertraline [Zoloft] 50 mg PO DAILY Fluticasone Nasal [place] [Flonase Nasal [place]] 1 spr EA NOSTRIL BID PRN PRN Reason: Allergy Symptoms Triamcinolone 0.5% Cream [Kenalog 0.5% Cream] 1 applic TOPICAL BID Acetaminophen Tab [Tylenol] 650 mg PO Q4HR PRN tab PRN Reason: Fever And/ Or Pain INSULIN ASPART (NovoLOG) [NovoLOG (formulary)] See Protocol SQ AC-TID PRN PRN Reason: Blood Sugar - High Discontinued amLODIPine [Norvasc] 5 mg PO HS tab lisinopriL [Zestril] 5 mg PO HS tab Empagliflozin [Jardiance] 10 mg PO DAILY Discharge Medication List Montelukast [Singulair] 10 mg PO DAILY 04/03/16 [History] Atorvastatin [Lipitor] 20 mg PO DAILY 12/21/20 [History] Omeprazole Magnesium [PriLOSEC OTC] 20 mg PO DAILY 12/21/20 [History] Sertraline [Zoloft] 50 mg PO DAILY 10/20/21 [History] Fluticasone Nasal [place] [Flonase Nasal [place]] 1 spr EA NOSTRIL BID PRN 02/01/24 [History] Triamcinolone 0.5% Cream [Kenalog 0.5% Cream] 1 applic TOPICAL BID 02/01/24 [History] buPROPion XL [Wellbutrin XL] 150 mg PO DAILY 02/01/24 [History] Sennosides-Docusate Sodium [Senokot-S] 1 tab PO BID PRN #60 tablet 02/02/24 [Rx] methocarbamoL [Robaxin-750] 750 mg PO QID PRN tab 02/02/24 [Rx] Albuterol Sulfate [Albuterol Sulfate Hfa] 2 puff PO RT-QID PRN 03/06/24 [History] Ondansetron [Zofran] 4 mg PO Q6H PRN 03/06/24 [History] Acetaminophen Tab [Tylenol] 650 mg PO Q4HR PRN tab 03/08/24 [Rx] HYDROcodone/APAP 5-325MG [[place] 5-325] 1 tab PO Q6HR PRN #12 tab 03/08/24 [Rx] LORazepam [Ativan] 0.5 mg PO DAILY PRN #3 tab 03/08/24 [Rx] Midodrine [ProAmatine] 5 mg PO AC-TID tab 03/08/24 [Rx] INSULIN ASPART (NovoLOG) [NovoLOG (formulary)] See Protocol SQ AC-TID PRN 04/25/24 [History] Rivaroxaban [Xarelto] 10 mg PO DAILY 04/25/24 [History] Cholecalciferol [Vitamin D3 (25 Mcg = 1000 Iu)] 25 mcg PO DAILY #30 tab 04/27/24 [Rx] Fludrocortisone [Florinef] 0.1 mg PO DAILY #30 tab 04/27/24 [Rx] Nystatin 100,000 Unit/gm Powd [Mycostatin Powder] 1 applic TOPICAL BID each 04/27/24 [Rx] Follow up Appointment(s)/Referral(s): Pradip Masters DO [STAFF PHYSICIAN] - 1-2 days [facility], [NON-STAFF] - As Needed Diony Samuel DO [STAFF PHYSICIAN] - 1 Week Ambulatory/Diagnostic Orders: Comprehensive Metabolic Panel [LAB.AMB] Time Frame: 3 Days, Location: None Selected Patient Instructions/Handouts: Fludrocortisone Acetate (By mouth), Cholecalciferol (By mouth), Fall Prevention for Older Adults (DC) Activity/Diet/Wound Care/Special Instructions: Activity limited until follow-up Follow-up with primary care provider on discharge Follow-up with nephrology outpatient Repeat labs in the next few days to monitor kidney functions and electrolytes Follow-up with cardiology outpatient Discharge Disposition: HOME WITH HOME HEALTH SERVICES
== END 2024-04-27 18:19 | disposition home health service (06) | DRG 565 ==
LOC: EC 23:12 → 5NMEDONC 04-25 03:20
PROVIDERS: ADMIT Internal Medicine; ATTEND Internal Medicine
DX: T79.6XXA Traumatic ischemia of muscle, initial encounter (principal); N17.9 Acute kidney failure, unspecified; Z68.42 Body mass index [BMI] 45.0-49.9, adult; I95.1 Orthostatic hypotension; E11.9 Type 2 diabetes mellitus without complications; E66.9 Obesity, unspecified; J45.909 Unspecified asthma, uncomplicated; E66.01 Morbid (severe) obesity due to excess calories; E78.5 Hyperlipidemia, unspecified; E87.6 Hypokalemia; R29.6 Repeated falls; F32.A Depression, unspecified; F41.9 Anxiety disorder, unspecified; I10 Essential (primary) hypertension; S42.92XD Fracture of left shoulder girdle, part unspecified, subsequent encounter for fracture with routine healing; S62.502D Fracture of unspecified phalanx of left thumb, subsequent encounter for fracture with routine healing; W19.XXXD Unspecified fall, subsequent encounter; Z79.01 Long term (current) use of anticoagulants; Z79.4 Long term (current) use of insulin; Z79.52 Long term (current) use of systemic steroids; Z79.84 Long term (current) use of oral hypoglycemic drugs; Z79.899 Other long term (current) drug therapy; Z86.711 Personal history of pulmonary embolism; Z86.718 Personal history of other venous thrombosis and embolism; Z88.8 Allergy status to other drugs, medicaments and biological substances; Z91.040 Latex allergy status; Z82.49 Family history of ischemic heart disease and other diseases of the circulatory system
CPT/HCPCS: 36415; 70450; 71045; 72125; 72128; 72131; 72170; 80048; 80053; 81001; 82533; 82550; 82607; 82747; 83036; 83605; 83735; 84132; 85025; 85610; 85730; 86850; 86900; 86901; 87636; 93005; 93880; 96361; 96374; 96375; 99285